=== PATIENT | male | born 1935 | race African-American/Black ===

== ENCOUNTER 2016-10-15 09:11 | Inpatient (IN) | payer MEDICARE, OTHER ==
[2016-10-14 19:00] VITALS: BP 167/91; PULSE 80; RESP 20; TEMP 98.6; O2SAT 99
[2016-10-15] VITALS (11 sets, daily range): BP systolic 149–217; BP diastolic 71–93; PULSE 60–88; RESP 18–28; TEMP 98.3–98.8; O2SAT 91–99
[~2016-10-15] VITALS: Ht 175.3 cm; Wt 62.0 kg
[~2016-10-15 09:11] MED LIST: ADVA250A INH; ALBU2.5I INH; ASPI81 PO; AUGM875T PO; CLOP75 PO; GABA300C3 PO; HYDR-2768 PO; IPRAAER INH; MONT10TA2 PO; NEBI5 PO; NITR0.4S SL; NORV10TA PO; PROT40TA PO; TAMS0.4C67 PO
--- NOTE | 2016-10-15 09:39 | PD ---
HPI Chief Complaint: Edema Time Seen by Provider: 09:36 Travel History International Travel<30 days: No Contact w/Intl Traveler<30days: No Traveled to known affect area: No History of Present Illness HPI 81-year-old male with history of COPD, hypertension, presents to the ER today with several months history of bilateral leg swelling that has been getting worse, he states that the right one developed a blister. He has been having ongoing problems and shortness of breath which has been worse lately, he has been using his inhaler with some success. He has been having some coughing but denies any fevers or any other issues. Modifying Factors: None Associated Signs & Symptoms: Bilateral leg swelling, shortness of breath Risk Factors: None PFSH Past Medical History Hx Anticoagulant Therapy: Yes (ASA) Arthritis: Yes Asthma: Yes Cancer: Yes (PROSTATE) Cardiovascular Problems: Yes ((mILD HEART ATTACK PER PT)) Chest Pain: No COPD: Yes Coronary Artery Disease: Yes Diabetes: No Diminished Hearing: No Endocrine: No Gastrointestinal Disorders: No Glaucoma: No Genitourinary: Yes (prostate ca) Hepatitis: No Hiatal Hernia: No Hypertension: Yes Immune Disorder: No Musculoskeletal: Yes Psychiatric: No Reproductive: No Respiratory: Yes (EMPHYSEMA; o2 prn) Integumentary: No Immunizations Current: Yes Radiation Therapy: Yes Sleep Apnea: No Thyroid Disease: No Past Surgical History Thoracic Surgery: No Other Surgery: Yes (BACK) Social History Alcohol Use: No Tobacco Use: No (FORMER) Substance Use: No Allergies-Medications (Allergen,Severity, Reaction): Coded Allergies: No Known Allergies (Verified , 10/15/16) Reported Meds & Prescriptions Reported Meds & Active Scripts Active Reported Proair Hfa 8.5 GM Inh (Albuterol Sulfate) 90 Mcg/Act Aer 2 Puff INH QID PRN 108 mcg/actuation Hydrochlorothiazide 25 Mg Tab 25 Mg PO DAILY Norvasc (Amlodipine Besylate) 10 Mg Tab 10 Mg PO DAILY Singulair (Montelukast Sodium) 10 Mg Tab 10 Mg PO HS Albuterol Neb (Albuterol Sulfate) 2.5 Mg/3 Ml Neb 2.5 Mg NEB Q4HR NEB PRN While awake Gabapentin 300 Mg Cap 300 Mg PO TID Plavix (Clopidogrel Bisulfate) 75 Mg Tab 75 Mg PO DAILY Advair Diskus Inh (Fluticasone-Salmeterol Inh) 250-50 Mcg/Blist Aer 1 Puff INH BID Rinse mouth after use. Nitrostat SL (Nitroglycerin) 0.4 Mg Subl 0.4 Mg SL DIRECTED PRN 1 tablet under the tongue as needed for chest pain. Repeat every 5 minutes for a total of 3 DOSES or call 911 if NO relief. Bystolic (Nebivolol) 5 Mg Tab 5 Mg PO DAILY Aspir-81 (Aspirin) 81 Mg Tabdr 81 Mg PO HS Combivent Respimat Inh (Ipratropium-Albuterol Inh) 20-100 Assisted/Act Aero 1 Puff INH BID PRN Prednisone 20 Mg Tab 20 Mg PO DAILY Tamsulosin (Tamsulosin HCl) 0.4 Mg Cap 0.4 Mg PO BID Pantoprazole (Pantoprazole Sodium) 40 Mg Tab 40 Mg PO DAILY Review of Systems Except as stated in HPI: all other systems reviewed are Neg Physical Exam Narrative GENERAL: Well-developed elderly -[place] male patient currently in mild respiratory distress. Awake appointed 3. SKIN: Focused skin assessment warm/dry. HEAD: Atraumatic. Normocephalic. EYES: Pupils equal and round. No scleral icterus. No injection or drainage. ENT: No nasal bleeding or discharge. Mucous membranes pink and moist. NECK: Trachea midline. No JVD. CARDIOVASCULAR: Regular rate and rhythm. No murmur appreciated. RESPIRATORY: Notable accessory muscle use. Coarse at the bases. Breath sounds equal bilaterally. GASTROINTESTINAL: Abdomen soft, non-tender, nondistended. Hepatic and splenic margins not palpable. MUSCULOSKELETAL: No obvious deformities. No clubbing. No cyanosis. +3 hitting edema of the lower extremity bilaterally. There is a 2 cm right foot dorsal fluid filled bulla which is nontender to palpation with no surrounding erythema. NEUROLOGICAL: Awake and alert. No obvious cranial nerve deficits. Motor grossly within normal limits. Normal speech. PSYCHIATRIC: Appropriate mood and affect; insight and judgment normal. Data Data Last Documented VS Vital Signs Date Time Temp Pulse Resp B/P Pulse Ox O2 Delivery O2 Flow Rate FiO2 10/15/16 11:22 73 26 208/82 Nasal Cannula 2.0 10/15/16 09:44 95 10/15/16 09:14 98.3 Orders Complete Blood Count With Diff (10/15/16 09:36) Comprehensive Metabolic Panel (10/15/16 09:36) B-Type Natriuretic Peptide (10/15/16 09:36) Act Partial Throm Time (Ptt) (10/15/16 09:36) Prothrombin Time / Inr (Pt) (10/15/16 09:36) Troponin I (10/15/16 09:36) Iv Access Insert/Monitor (10/15/16 09:36) Electrocardiogram (10/15/16 09:36) Ecg Monitoring (10/15/16 09:36) Oximetry (10/15/16 09:36) Oxygen Administration (10/15/16 09:36) Chest, Single Ap (10/15/16 09:36) Sodium Chloride 0.9% Flush (Ns Flush) (10/15/16 09:45) Us Leg Venous Doppler Bilat (10/15/16 09:36) Methylprednisolone So Succ Inj (Solumedr (10/15/16 10:15) Albuterol-Ipratropium Neb (Duoneb Neb) (10/15/16 10:15) Amlodipine (Norvasc) (10/15/16 11:15) Furosemide Inj (Lasix Inj) (10/15/16 12:00) Admit Order (Ed Use Only) (10/15/16 12:07) Labs Laboratory Tests Test 10/15/16 09:54 White Blood Count 8.7 TH/MM3 Red Blood Count 5.61 MIL/MM3 Hemoglobin 13.7 GM/DL Hematocrit 42.2 % Mean Corpuscular Volume 75.2 FL Mean Corpuscular Hemoglobin 24.4 PG Mean Corpuscular Hemoglobin 32.5 % Concent Red Cell Distribution Width 18.8 % Platelet Count 154 TH/MM3 Mean Platelet Volume 7.2 FL Neutrophils (%) (Auto) 74.2 % Lymphocytes (%) (Auto) 12.3 % Monocytes (%) (Auto) 6.4 % Eosinophils (%) (Auto) 6.2 % Basophils (%) (Auto) 0.9 % Neutrophils # (Auto) 6.4 TH/MM3 Lymphocytes # (Auto) 1.1 TH/MM3 Monocytes # (Auto) 0.6 TH/MM3 Eosinophils # (Auto) 0.5 TH/MM3 Basophils # (Auto) 0.1 TH/MM3 CBC Comment DIFF FINAL Differential Comment Prothrombin Time 10.6 SEC Prothromb Time International 1.0 RATIO Ratio Activated Partial 27.8 SEC Thromboplast Time Sodium Level 140 MEQ/L Potassium Level 4.4 MEQ/L Chloride Level 106 MEQ/L Carbon Dioxide Level 27.7 MEQ/L Anion Gap 6 MEQ/L Blood Urea Nitrogen 13 MG/DL Creatinine 1.14 MG/DL Estimat Glomerular Filtration 75 ML/MIN Rate Random Glucose 87 MG/DL Calcium Level 8.8 MG/DL Total Bilirubin 0.5 MG/DL Aspartate Amino Transf 41 U/L (AST/SGOT) Alanine Aminotransferase 30 U/L (ALT/SGPT) Alkaline Phosphatase 49 U/L Troponin I 0.02 NG/ML B-Type Natriuretic Peptide 54 PG/ML Total Protein 6.9 GM/DL Albumin 3.6 GM/DL [facility] Medical Decision Making Medical Screen Exam Complete: Yes Emergency Medical Condition: Yes Medical Record Reviewed: Yes Interpretation(s) EKG shows normal sinus rhythm at a rate of 60 bpm with signs of LVH. Laboratory Tests Test 10/15/16 09:54 Mean Corpuscular Volume 75.2 FL (80.0-100.0) Mean Corpuscular Hemoglobin 24.4 PG (27.0-34.0) Red Cell Distribution Width 18.8 % (11.6-17.2) Neutrophils (%) (Auto) 74.2 % (16.0-70.0) Eosinophils (%) (Auto) 6.2 % (0.0-4.0) Eosinophils # (Auto) 0.5 TH/MM3 (0-0.4) Estimat Glomerular Filtration 75 ML/MIN (>89) Rate Aspartate Amino Transf 41 U/L (15-37) (AST/SGOT) Last 24 hours Impressions Lower Extremity Ultrasound 10/15/16935 Signed Impressions: Service Date/Time: Saturday, October 15, 2016 10:08 - CONCLUSION: Normal examination. Carlos Lehman Jr., MD Chest X-Ray 10/15/16935 Signed Impressions: Service Date/Time: Saturday, October 15, 2016 09:39 - CONCLUSION: Bullous emphysematous changes. Prior granulomatous disease. Carlos Lehman Jr., MD Differential Diagnosis Leg swelling, right foot blister, shortness of breathCHF versus DVT/PE versus cellulitis versus COPD exacerbation versus pneumonia Narrative Course EKG shows signs of LVH and blood pressure is fairly elevated. Patient was initially given his usual Norvasc without significant improvement. Ultrasound of legs shows no signs of DVT. At this point, lab work returns did not show any signs of troponin elevation. My plan would be to admit the patient for blood pressure control. In addition, chest x-ray shows COPD without pneumonia. He was given Solu-Medrol and DuoNeb's in the ER with mild improvements and saturations. Considering how poorly he is doing at home, further treatment will be needed. Case was discussed with Dr. Arceo for admission for further treatment. Diagnosis Primary Impression: Hypertensive urgency Additional Impression: COPD exacerbation Admitting Information Admitting Physician Requests: Admit Nithya Alonso MD Oct 15, 2016 09:39
[2016-10-15] MEDS ORDERED: SODIUM CHLORIDE 0.9% FLUSH 10 ML FLUSH IVF PRN (09:45)
--- NOTE | 2016-10-15 09:59 | RADRPT ---
EXAM DATE/TIME: 10/15/2016 09:39 [facility] COMPARISON: CT PULMONARY ANGIOGRAM, May 05, 2014, 4:02. CHEST SINGLE AP, May 06, 2014, 6:48. INDICATIONS : Short of breath. MEDICAL HISTORY : Hypertension. Chronic obstructive pulmonary disease. SURGICAL HISTORY : None. ENCOUNTER: Subsequent ACUITY: 2 days PAIN SCORE: 0/10 LOCATION: Bilateral chest FINDINGS: A single portable frontal view of the chest shows bullous emphysematous changes. Calcified granulomas are noted on the left. No infiltrate or effusion. Heart is normal in size. Scoliotic curvature is mi ld. CONCLUSION: Bullous emphysematous changes. Prior granulomatous disease. Carlos Lehman Jr., MD on October 15, 2016 at 9:56 Board Certified Radiologist. This report was verified electronically.
[2016-10-15] MEDS ORDERED: ASPI81TA81 PO (10:02)
[2016-10-15] MEDS ORDERED: PLAV75TA29 PO (10:02)
[2016-10-15] MEDS ORDERED: ADVA250A INH (10:02)
[2016-10-15] MEDS ORDERED: NITR0.4S SL (10:02)
[2016-10-15] MEDS ORDERED: BYST5TAB2 PO (10:02)
[2016-10-15] MEDS ORDERED: TAMS0.4C4 PO (10:02)
[2016-10-15] MEDS ORDERED: PRED20 PO (10:02)
[2016-10-15] MEDS ORDERED: PANT40TA3 PO (10:02)
[2016-10-15] MEDS ORDERED: GABA300C5 PO (10:02)
[2016-10-15] MEDS ORDERED: IPRAAER INH (10:02)
[2016-10-15] MEDS ORDERED: MONT10TA2 PO (10:04)
[2016-10-15] MEDS ORDERED: AMLO10 PO (10:04)
[2016-10-15] MEDS ORDERED: ALBU0.08 NEB (10:04)
[2016-10-15] MEDS ORDERED: HYDR25TA5 PO (10:05)
[2016-10-15] MEDS ORDERED: ALBUAER3 INH (10:06)
[2016-10-15 10:09] LABS: AUTOMATED NEUTROPHIL # 6.4 TH/MM3 (1.8-7.7); BASOPHIL # 0.1 TH/MM3 (0-0.2); BASOPHIL % 0.9 % (0.0-2.0); EOSINOPHIL # 0.5 TH/MM3 (0-0.4); EOSINOPHIL % 6.2 % (0.0-4.0); HEMATOCRIT 42.2 % (39.0-51.0); HEMO FLAGS DIFF FINAL; LYMPH % 12.3 % (9.0-44.0); LYMPHOCYTE # 1.1 TH/MM3 (1.0-4.8); MEAN CELL VOLUME 75.2 FL (80.0-100.0); MEAN CORPUSCULAR HEMOGLOBIN 24.4 PG (27.0-34.0); MEAN CORPUSCULAR HGB CONC 32.5 % (32.0-36.0); MONO % 6.4 % (0.0-8.0); NEUT % 74.2 % (16.0-70.0); PLATELET COUNT 154 TH/MM3 (150-450); RED BLOOD COUNT 5.61 MIL/MM3 (4.50-5.90); RED CELL DISTRIBUTION WIDTH 18.8 % (11.6-17.2); WHITE BLOOD COUNT 8.7 TH/MM3 (4.0-11.0)
[2016-10-15] MEDS ORDERED: methylPREDNISolone SOD SUCC 125 MG/2 ML VIAL IV PUSH ONE (10:15)
[2016-10-15 10:22] LABS: APTT (PATIENT) 27.8 SEC (24.3-30.1); PROTHROMBIN TIME - PATIENT 10.6 SEC (9.8-11.6)
[2016-10-15 10:31] LABS: ALT (GPT) 30 U/L (12-78)
[2016-10-15 10:35] LABS: ALKALINE PHOSPHATASE 49 U/L (45-117); TOTAL BILIRUBIN ADULT 0.5 MG/DL (0.2-1.0)
[2016-10-15 10:58] LABS: ANION GAP 6 MEQ/L (5-15); AST (GOT) 41 U/L (15-37); BICARBONATE 27.7 MEQ/L (21.0-32.0); BLOOD UREA NITROGEN 13 MG/DL (7-18); CHLORIDE 106 MEQ/L (98-107); GLOMERULAR FILTRATION RATE 75 ML/MIN (>89); POTASSIUM 4.4 MEQ/L (3.5-5.1); SODIUM (NA) 140 MEQ/L (136-145)
--- NOTE | 2016-10-15 11:14 | RADRPT ---
EXAM DATE/TIME: 10/15/2016 10:08 [facility] COMPARISON: No previous studies available for comparison. INDICATIONS : Bilateral leg swelling. MEDICAL HISTORY : Myocardial infarction. Chronic obstructive pulmonary disease. Hypertension. CAD. Prostate cancer. Art hritis. SURGICAL HISTORY : Lumbar herniated discs removed. ENCOUNTER: Initial ACUITY: 1 day PAIN SCORE: 4/10 LOCATION: Bilateral legs. TECHNIQUE: Venous ultrasound of the left and right leg was performed from the inguinal ligament to the proximal calf. Real-time, color Doppler and spectral tracing, compression and augmentation techniques were us ed. FINDINGS: RIGHT LEG: There is normal compressibility of the deep venous system from the inguinal region to the proximal ca lf. No echogenic clot is seen in the lumen of the common femoral, femoral, popliteal, and posterior tibial veins. There is a normal response of the venous system to proximal and distal augmentation an d respiration. LEFT LEG: There is normal compressibility of the deep venous system from the inguinal region to the proximal ca lf. No echogenic clot is seen in the lumen of the common femoral, femoral, popliteal, and posterior tibial veins. There is a normal response of the venous system to proximal and distal augmentation an d respiration. CONCLUSION: Normal examination. Carlos Lehman Jr., MD on October 15, 2016 at 11:10 Board Certified Radiologist. This report was verified electronically.
[2016-10-15] MEDS: RESP: ALBUTEROL 2.5 MG/IPRATROPIUM 0.5 MG NEB (SCH) INH (11:34)
[2016-10-15] MEDS ORDERED: FUROSEMIDE 40 MG/4 ML VIAL IV PUSH ONE (12:00)
[2016-10-15] MEDS ORDERED: niCARdipine INJ 25 MG in SODIUM CHLOR 0.9% 250 ML INJ 250 ML IV SCH (12:15)
[2016-10-15] MEDS ORDERED: SODIUM CHLORIDE 0.9% FLUSH 10 ML FLUSH IV FLUSH PRN (12:30)
[2016-10-15] MEDS ORDERED: NALOXONE HCL 0.4 MG/ML AMP IV PRN (12:30)
[2016-10-15] MEDS ORDERED: ACETAMINOPHEN 325 MG TAB PO PRN ×2 (12:30)
[2016-10-15 12:38] LABS: BLOOD GAS BASE EXCESS 4.7 mmol/L (-2-2); BLOOD GAS CARBOXYHEMOGLOBIN 1.4 % (0-4); BLOOD GAS HCO3 29 mmol/L (22-26); BLOOD GAS METHEMOGLOBIN 0.6 % (0-2); BLOOD GAS O2 HGB SATURATION 94 % (90-100); BLOOD GAS OXYGEN CONTENT 17.3 Vol % (12.0-20.0); BLOOD GAS PCO2 48 mmHg (38-42); BLOOD GAS PO2 80 mmHG (61-120); BLOOD GAS TOTAL HGB 13.1 G/DL (12.0-16.0); CRITICAL VALUE NO; DRAW SITE RT RADIAL; LITER FLOW 1 L/M; NUMBER OF ARTERIAL PUNCTURES 1; OXYGEN DEVICE NASAL CANNULA; STAT YES; TEMP CORR TO 98.6
[2016-10-15] MEDS ORDERED: ONDANSETRON HCL 4 MG/2 ML VIAL IVP PRN (13:00)
[2016-10-15] MEDS ORDERED: SENNOSIDES 8.6 MG TAB PO PRN (13:00)
--- NOTE | 2016-10-15 15:36 | HHI.HP ---
HPI Service [facility] Hospitalists Primary Care Physician Gavin Lamar MD Admission Diagnosis hypertensive urgency/leg edema/COPD exacerbation Diagnoses: (1) Hypertensive urgency (2) COPD exacerbation (3) Edema of lower extremity Chief Complaint: SOB Bilateral lower extremity swelling Travel History International Travel<30 Days: No Contact w/Intl Traveler <30 Da: No Traveled to Known Affected Are: No History of Present Illness Written by Le Friend PA-C acting as scribe for Dr. Arceo on 10/15/16 at 15:36. This is an 81 year old male with a PMHX significant for COPD with nightly use of oxygen, CAD status post previous HI, hypertension and history of prostate cancer presents to [facility] ED with complaints of one month history of bilateral lower extremity swelling. Patient is not a good historian and it is difficult to ascertain what medications he's been taking home and if he has been taking them as prescribed. According to his daughter who is at the bedside, he may have been out of some of his medications. Patient endorses over the last several days he's had increased shortness of breath and cough with whitish sputum production. He is having more difficulty walking the stairs to get up to his second floor apartment. He was unable to walk his dogs this morning secondary to shortness of breath. He denies any recent illness. He denies any fever or chills. He denies any complaints of chest pain or palpitations. Denies any nausea, vomiting, abdominal pain, diarrhea or constipation. In the ED, Doppler's were obtained of both lower extremities and were negative for DVT. Chest x-ray was obtained revealing bullous emphysematous changes and prior granulomatous disease. Patient's blood pressure was significantly elevated in the ED 208/82. Patient states he's been taking his blood pressure medication daily except for this morning which he did not take as he was coming into the hospital. Patient was given Norvasc 10 mg in the ED. Blood pressure improved to 157/72. Review of Systems Except as stated in HPI: all other systems reviewed are Neg Past Family Social History Past Medical History Hypertension COPD CAD status post previous HI Prostate cancer Degenerative disc disease lumbar spine H/O TB Past Surgical History Lumbar spine surgery 20-30 years ago Reported Medications Proair Hfa 8.5 GM Inh (Albuterol Sulfate) 90 Mcg/Act Aer 2 Puff INH QID PRN 108 mcg/actuation Hydrochlorothiazide 25 Mg Tab 25 Mg PO DAILY Norvasc (Amlodipine Besylate) 10 Mg Tab 10 Mg PO DAILY Singulair (Montelukast Sodium) 10 Mg Tab 10 Mg PO HS Albuterol Neb (Albuterol Sulfate) 2.5 Mg/3 Ml Neb 2.5 Mg NEB Q4HR NEB PRN While awake Gabapentin 300 Mg Cap 300 Mg PO TID Plavix (Clopidogrel Bisulfate) 75 Mg Tab 75 Mg PO DAILY Advair Diskus Inh (Fluticasone-Salmeterol Inh) 250-50 Mcg/Blist Aer 1 Puff INH BID Rinse mouth after use. Nitrostat SL (Nitroglycerin) 0.4 Mg Subl 0.4 Mg SL DIRECTED PRN 1 tablet under the tongue as needed for chest pain. Repeat every 5 minutes for a total of 3 DOSES or call 911 if NO relief. Bystolic (Nebivolol) 5 Mg Tab 5 Mg PO DAILY Aspir-81 (Aspirin) 81 Mg Tabdr 81 Mg PO HS Combivent Respimat Inh (Ipratropium-Albuterol Inh) 20-100 Prison/Act Aero 1 Puff INH BID PRN Prednisone 20 Mg Tab 20 Mg PO DAILY Tamsulosin (Tamsulosin HCl) 0.4 Mg Cap 0.4 Mg PO BID Pantoprazole (Pantoprazole Sodium) 40 Mg Tab 40 Mg PO DAILY Allergies: Coded Allergies: No Known Allergies (Verified , 10/15/16) Active Ordered Medications Current Medications Medications (Trade) Dose Ordered Sig/Veda Route Start Time Stop Time Status Last Admin Sodium Chloride 2 ml 2 ml UNSCH PRN IVF 10/15/16 09:45 10/15/16 11:18 (Cardene Inj/NS 250 ml Inj) 260 ml @ 0 mls/hr TITRATE IV 10/15/16 12:15 (NS Flush) 2 ml UNSCH PRN IV FLUSH 10/15/16 12:30 (NS Flush) 2 ml BID IV FLUSH 10/15/16 21:00 (Tylenol) 650 mg Q4H PRN PO 10/15/16 12:30 (Zofran Inj) 4 mg Q6H PRN IVP 10/15/16 13:00 (Tylenol) 650 mg Q6H PRN PO 10/15/16 12:30 (Narcan Inj) 0.4 mg UNSCH PRN IV 10/15/16 12:30 (Senokot) 17.2 mg Q12HR PRN PO 10/15/16 13:00 Family History Father, cancer Social History Patient reports history of previous tobacco use having quit approximately 8 years ago. Preior to quitting, he smoked about a half pack per day for 30-40 years. She denies any alcohol consumption or illicit drug use. Patient lives alone in an upstairs apartment. Physical Exam Vital Signs Vital Signs Date Time Temp Pulse Resp B/P Pulse Ox O2 Delivery O2 Flow Rate FiO2 10/15/16 14:48 79 22 157/72 99 Nasal Cannula 3.0 10/15/16 11:22 73 26 208/82 Nasal Cannula 2.0 10/15/16 09:44 60 28 198/92 95 Room Air 10/15/16 09:43 95 Room Air 10/15/16 09:43 Nasal Cannula 2.0 10/15/16 09:37 30 94 Room Air 10/15/16 09:14 98.3 72 28 217/93 91 Room Air Physical Exam GENERAL: This is a well-nourished, well-developed patient, in mild to moderate respiratory distress noted to be short of breath with speaking. Awake and alert. Daughter is at the bedside. SKIN: No rashes, ecchymoses or lesions. Cool and dry. HEAD: Atraumatic. Normocephalic. No temporal or scalp tenderness. EYES: Pupils equal round and reactive. Extraocular motions intact. No scleral icterus. No injection or drainage. ENT: Nose without bleeding, purulent drainage or septal hematoma. Throat without erythema, tonsillar hypertrophy or exudate. Uvula midline. Airway patent. NECK: Trachea midline. No lymphadenopathy. Supple, nontender, no meningeal signs. CARDIOVASCULAR: Regular rate and rhythm without murmurs, gallops, or rubs. RESPIRATORY: Tight air entry. Coarse breath sounds throughout. Expiratory wheezing noted. GASTROINTESTINAL: Abdomen soft, non-tender, nondistended. No hepato-splenomegaly , or palpable masses. No guarding. MUSCULOSKELETAL: 2+ bilateral lower extremity edema with bullous formation top of the right foot. NEUROLOGICAL: Awake and alert. Able to move all extremities. Normal speech. Laboratory Laboratory Tests Test 10/15/16 10/15/16 09:54 12:28 White Blood Count 8.7 Red Blood Count 5.61 Hemoglobin 13.7 Hematocrit 42.2 Mean Corpuscular Volume 75.2 Mean Corpuscular Hemoglobin 24.4 Mean Corpuscular Hemoglobin 32.5 Concent Red Cell Distribution Width 18.8 Platelet Count 154 Mean Platelet Volume 7.2 Neutrophils (%) (Auto) 74.2 Lymphocytes (%) (Auto) 12.3 Monocytes (%) (Auto) 6.4 Eosinophils (%) (Auto) 6.2 Basophils (%) (Auto) 0.9 Neutrophils # (Auto) 6.4 Lymphocytes # (Auto) 1.1 Monocytes # (Auto) 0.6 Eosinophils # (Auto) 0.5 Basophils # (Auto) 0.1 CBC Comment DIFF FINAL Differential Comment Prothrombin Time 10.6 Prothromb Time International 1.0 Ratio Activated Partial 27.8 Thromboplast Time Sodium Level 140 Potassium Level 4.4 Chloride Level 106 Carbon Dioxide Level 27.7 Anion Gap 6 Blood Urea Nitrogen 13 Creatinine 1.14 Estimat Glomerular Filtration 75 Rate Random Glucose 87 Calcium Level 8.8 Total Bilirubin 0.5 Aspartate Amino Transf 41 (AST/SGOT) Alanine Aminotransferase 30 (ALT/SGPT) Alkaline Phosphatase 49 Troponin I 0.02 B-Type Natriuretic Peptide 54 Total Protein 6.9 Albumin 3.6 Thyroid Stimulating Hormone 1.300 3rd Gen Blood Gas Puncture Site RT RADIAL Blood Gas Patient Temperature 98.6 Blood Gas HCO3 29 Blood Gas Base Excess 4.7 Blood Gas Oxygen Saturation 94 Arterial Blood pH 7.40 Arterial Blood Partial 48 Pressure CO2 Arterial Blood Partial 80 Pressure O2 Arterial Blood Oxygen Content 17.3 Arterial Blood 1.4 Carboxyhemoglobin Arterial Blood Methemoglobin 0.6 Blood Gas Hemoglobin 13.1 Oxygen Delivery Device NASAL CANNULA Blood Gas Liter Flow 1 Result Diagram: 10/15/1695310/15/16953 Imaging Last Impressions Lower Extremity Ultrasound 10/15/16935 Signed Impressions: Service Date/Time: Saturday, October 15, 2016 10:08 - CONCLUSION: Normal examination. Carlos Lehman Jr., MD Chest X-Ray 10/15/16935 Signed Impressions: Service Date/Time: Saturday, October 15, 2016 09:39 - CONCLUSION: Bullous emphysematous changes. Prior granulomatous disease. Carlos Lehman Jr., MD Assessment and Plan Problem List: (1) Hypertensive urgency ICD Code: I10 Status: Acute (2) Edema of lower extremity ICD Code: R60.0 Status: Acute (3) COPD exacerbation ICD Code: J44.1 Status: Acute Assessment and Plan 81 year old male with a PMHX significant for COPD with nightly use of oxygen, CAD status post previous HI, hypertension and history of prostate cancer presents to [facility] ED with complaints of one month history of bilateral lower extremity swelling and progressive dyspnea over the past several days with cough and whitish sputum production. Hypertensive urgency -Cardene drip order routine - improved - Patient given Norvasc 10mg in ED - suspect medication noncompliance - Will resume patient's home antihypertensives except for Norvasc which will be held secondary to possibly contributing to lower extremity edema and HCTZ as we will be giving the patient Lasix - Clonidine 0.1mg prn -Check 2-D echo COPD exacerbation - ABG reviewed - Prednisone 10mg po BID - Duonebs scheduled q6h while awake with prn albuterol q2h - Resume home bronchodilator therapy - Resume home dose of Singulair - Supplemental oxygen as needed - sputum cx ordered - PT eval/tx BLE edema - Does not appear to be a CHF exacerbation. Chest x-ray negative for fluid overload. BNP 54. - Last echocardiogram noted in the system was dated 2014 with EF of 65% - Patient given IV Lasix in the ED - Will continue IV Lasix 20mg daily - monitor I&Os - monitor electrolytes -Check 2-D echo CAD s/p previous HI - Resume beta lino therapy - ASA daily - Resume home Plavix dose CAP BPH - Resume home dose of Flomax DVT prophylaxis - Patient's home Plavix dose is resumed - SCD/MEG hose bilaterally Code Status Full code Discussed Condition With patient, daughter and ED physician Physician Certification 2 Midnight Certification Type: Admission for Inpatient Services Order for Inpatient Services The services are ordered in accordance with Medicare regulations or non- Medicare payer requirements, as applicable. In the case of services not specified as inpatient-only, they are appropriately provided as inpatient services in accordance with the 2-midnight benchmark. Estimated LOS (days): 3 3 days is the estimated time the patient will need to remain in the hospital, assuming treatment plan goals are met and no additional complications. Post-Hospital Plan: Not yet determined Le Friend Oct 15, 2016 15:36 Trung Arceo MD Oct 15, 2016 15:37
[2016-10-15] MEDS ORDERED: cloNIDine HCL 0.1 MG TAB PO PRN (16:30)
[2016-10-15] MEDS ORDERED: CLOPIDOGREL 75 MG TAB PO ONE (16:30)
[2016-10-15] MEDS ORDERED: NON-FORMULARY DRUG (Ipratropium-Albuterol Inh (Combivent Respimat Inh) 1 PUFF) INH PRN (16:30)
[2016-10-15] MEDS: NEBIVOLOL 5 MG TAB PO SCH (16:30)
[2016-10-15] MEDS ORDERED: NITROGLYCERIN 0.4 MG SL 25 TABS/BTL SL PRN (16:30)
[2016-10-15] MEDS ORDERED: RESP: ALBUTEROL 2.5 MG/3 ML NEB (PRN) NEB (16:30)
[2016-10-15] MEDS ORDERED: ALBUTEROL SULFATE 90 MCG/ACT HFA 18 GM INHALER INH PRN (17:00)
[2016-10-15] MEDS: GABAPENTIN 300 MG CAP PO SCH (17:45)
[2016-10-15] MEDS: RESP: ALBUTEROL 2.5 MG/IPRATROPIUM 0.5 MG NEB (SCH) NEB (20:10)
[2016-10-15] MEDS: BUDESONIDE-FORMOTEROL 160/4.5 MCG INHALER INH SCH (21:00)
[2016-10-15] MEDS ORDERED: NON-FORMULARY DRUG (Fluticasone-Salmeterol Inh (Advair Diskus Inh) 1 PUFF) INH SCH (21:00)
[2016-10-15] MEDS: predniSONE 10 MG TAB PO SCH (21:14)
[2016-10-15] MEDS: SODIUM CHLORIDE 0.9% FLUSH 10 ML FLUSH IV FLUSH SCH (21:15)
[2016-10-15] MEDS: TAMSULOSIN HCL 0.4 MG CAP PO SCH (21:15)
[2016-10-15] MEDS: MONTELUKAST SODIUM 10 MG TAB PO SCH (21:15)
[2016-10-15] MEDS: ASPIRIN EC 81 MG TABEC PO SCH (21:15)
[2016-10-16] VITALS (24 sets, daily range): BP systolic 126–164; BP diastolic 52–99; PULSE 59–84; RESP 18–22; TEMP 98–98.6; O2SAT 95–100
[2016-10-16 06:55] LABS: AUTOMATED NEUTROPHIL # 14.4 TH/MM3 (1.8-7.7); BASOPHIL % 0.2 % (0.0-2.0); HEMATOCRIT 41.7 % (39.0-51.0); HEMO FLAGS DIFF FINAL; LYMPH % 3.3 % (9.0-44.0); LYMPHOCYTE # 0.5 TH/MM3 (1.0-4.8); MEAN CORPUSCULAR HEMOGLOBIN 23.9 PG (27.0-34.0); MEAN CORPUSCULAR HGB CONC 31.9 % (32.0-36.0); MONO % 2.6 % (0.0-8.0); NEUT % 93.9 % (16.0-70.0); PLATELET COUNT 149 TH/MM3 (150-450); RED BLOOD COUNT 5.56 MIL/MM3 (4.50-5.90); RED CELL DISTRIBUTION WIDTH 18.6 % (11.6-17.2); WHITE BLOOD COUNT 15.3 TH/MM3 (4.0-11.0)
[2016-10-16 07:28] LABS: ALT (GPT) 24 U/L (12-78); ANION GAP 9 MEQ/L (5-15); AST (GOT) 18 U/L (15-37); BICARBONATE 27.8 MEQ/L (21.0-32.0); BLOOD UREA NITROGEN 18 MG/DL (7-18); CHLORIDE 104 MEQ/L (98-107); GLOMERULAR FILTRATION RATE 83 ML/MIN (>89); SODIUM (NA) 141 MEQ/L (136-145)
[2016-10-16 07:30] LABS: ALKALINE PHOSPHATASE 48 U/L (45-117); HDL CHOLESTEROL 79.8 MG/DL (40.0-60.0); LDL CHOLESTEROL 77 MG/DL (0-99); TOTAL BILIRUBIN ADULT 0.5 MG/DL (0.2-1.0)
[2016-10-16] MEDS: RESP: ALBUTEROL 2.5 MG/IPRATROPIUM 0.5 MG NEB (SCH) NEB ×3 (07:32→19:27)
[2016-10-16] MEDS: predniSONE 10 MG TAB PO SCH ×2 (08:34→20:51)
[2016-10-16] MEDS: GABAPENTIN 300 MG CAP PO SCH ×3 (08:34→17:41)
[2016-10-16] MEDS: NEBIVOLOL 5 MG TAB PO SCH (08:34)
[2016-10-16] MEDS: CLOPIDOGREL 75 MG TAB PO SCH (08:34)
[2016-10-16] MEDS: SODIUM CHLORIDE 0.9% FLUSH 10 ML FLUSH IV FLUSH SCH ×2 (08:35→20:51)
[2016-10-16] MEDS: FUROSEMIDE 20 MG/2 ML VIAL IV PUSH SCH (08:35)
[2016-10-16] MEDS: TAMSULOSIN HCL 0.4 MG CAP PO SCH ×2 (08:35→20:50)
[2016-10-16] MEDS: BUDESONIDE-FORMOTEROL 160/4.5 MCG INHALER INH SCH ×2 (08:35→20:53)
[2016-10-16] MEDS: PANTOPRAZOLE SOD 40 MG DELAYED RELEASE TAB PO SCH (08:35)
--- NOTE | 2016-10-16 11:05 | HHI.PR ---
Subjective Remarks Follow-up hypertensive emergency/bilateral lower extremity edema/COPD exacerbation 10/16/16-patient seen and examined, reports significant improvement or shortness of breath as well as bilateral lower extremity edema. BP much improved Objective Vitals Vital Signs Date Time Temp Pulse Resp B/P Pulse Ox O2 Delivery O2 Flow Rate FiO2 10/16/16 10:13 73 10/16/16 09:53 84 10/16/16 08:56 81 10/16/16 07:49 98 Nasal Cannula 2.00 10/16/16 07:49 77 10/16/16 07:49 98.2 77 18 164/99 98 10/16/16 07:34 95 Nasal Cannula 2.00 10/16/16 06:00 74 10/16/16 05:00 76 10/16/16 04:00 70 10/16/16 03:00 72 10/16/16 03:00 98.6 75 22 157/78 99 10/16/16 02:00 72 10/16/16 01:00 74 10/16/16 00:00 72 10/15/16 23:00 98.8 78 22 149/71 98 10/15/16 23:00 79 10/15/16 22:00 78 10/15/16 21:00 78 10/15/16 20:00 80 10/15/16 19:00 98.6 80 20 167/91 99 10/15/16 19:00 99 Nasal Cannula 2.00 10/15/16 19:00 99 Nasal Cannula 2.00 10/15/16 19:00 88 10/15/16 17:41 98.6 78 18 165/84 98 10/15/16 14:48 79 22 157/72 99 Nasal Cannula 3.0 10/15/16 11:22 73 26 208/82 Nasal Cannula 2.0 I/O 10/15/16 10/15/16 10/15/16 10/16/16 10/16/16 10/16/16 07:00 15:00 23:00 07:00 15:00 23:00 Intake Total 240 ml Output Total 1100 ml 500 ml 500 ml Balance -1100 ml -500 ml -260 ml Intake Oral 240 ml Output Urine Total 1100 ml 500 ml 500 ml # Voids 2 1 # Bowel Movements 1 Result Diagram: 10/16/1652010/16/16520 Imaging Last Impressions Lower Extremity Ultrasound 10/15/16935 Signed Impressions: Service Date/Time: Saturday, October 15, 2016 10:08 - CONCLUSION: Normal examination. Carlos Lehman Jr., MD Chest X-Ray 10/15/16935 Signed Impressions: Service Date/Time: Saturday, October 15, 2016 09:39 - CONCLUSION: Bullous emphysematous changes. Prior granulomatous disease. Carlos Lehmna Jr., MD Objective Remarks GENERAL: NAD SKIN: Warm and dry. HEAD: Normocephalic. EYES: No scleral icterus. No injection or drainage. NECK: Supple, trachea midline. No JVD or lymphadenopathy. CARDIOVASCULAR: Regular rate and rhythm without murmurs, gallops, or rubs. RESPIRATORY: Breath sounds equal bilaterally. No accessory muscle use. GASTROINTESTINAL: Abdomen soft, non-tender, nondistended. MUSCULOSKELETAL: No cyanosis, +trace edema BLE. BACK: Nontender without obvious deformity. No CVA tenderness. A/P Problem List: (1) Hypertensive urgency ICD Code: I10 Status: Acute (2) Edema of lower extremity ICD Code: R60.0 Status: Acute (3) COPD exacerbation ICD Code: J44.1 Status: Acute Assessment and Plan 81 year-old man with Hypertensive urgency -Cardene drip order will be discontinued - improved - suspect medication noncompliance - Continue patient's home antihypertensives except for Norvasc which will be held secondary to possibly contributing to lower extremity edema and HCTZ as we will be giving the patient Lasix - Clonidine 0.1mg prn -Check 2-D echo COPD exacerbation - Resolved - Prednisone 10mg po BID - Duonebs scheduled q6h while awake with prn albuterol q2h - Continue home bronchodilator therapy - Continue home dose of Singulair - Supplemental oxygen as needed - sputum cx pending - PT eval/tx BLE edema-improving - Does not appear to be a CHF exacerbation. Chest x-ray negative for fluid overload. BNP 54. - Last echocardiogram noted in the system was dated 2014 with EF of 65% - Continue IV Lasix 20mg daily - monitor I&Os - monitor electrolytes -Check 2-D echo CAD s/p previous [place] - Continue beta lino therapy as well as aspirin and Plavix CAP BPH - Continue home dose of Flomax DVT prophylaxis - SCD/Trung Villagomez MD Oct 16, 2016 11:05
[2016-10-16] MEDS: HYDROCHLOROTHIAZIDE 25 MG TAB PO SCH (11:40)
--- NOTE | 2016-10-16 14:22 | EKG ---
Date Performed: 10/15/2016 Time Performed: 09:55:55 PTAGE: 81 years EKG: Sinus rhythm LEFT VENTRICULAR HYPERTROPHY AND ST-T CHANGE ABNORMAL ECG Compared to the PREVIOUS TRACING the left ventricular strain pattern appears new Clinical correlation is needed PREVIOUS TRACIN05/04/14 DOCTOR: Gray Wheeler Interpretating Date/Time 10/16/2016 14:21:06
[2016-10-16] MEDS: MONTELUKAST SODIUM 10 MG TAB PO SCH (20:51)
[2016-10-16] MEDS: ASPIRIN EC 81 MG TABEC PO SCH (20:53)
[2016-10-17] VITALS (17 sets, daily range): BP systolic 127–165; BP diastolic 71–89; PULSE 54–91; RESP 18–20; TEMP 98–98.4; O2SAT 96–100
[2016-10-17] MEDS: RESP: ALBUTEROL 2.5 MG/IPRATROPIUM 0.5 MG NEB (SCH) NEB ×2 (08:06→14:15)
[2016-10-17] MEDS: GABAPENTIN 300 MG CAP PO SCH ×2 (08:59→13:16)
[2016-10-17] MEDS: predniSONE 10 MG TAB PO SCH (08:59)
[2016-10-17] MEDS: SODIUM CHLORIDE 0.9% FLUSH 10 ML FLUSH IV FLUSH SCH (08:59)
[2016-10-17] MEDS: CLOPIDOGREL 75 MG TAB PO SCH (08:59)
[2016-10-17] MEDS: HYDROCHLOROTHIAZIDE 25 MG TAB PO SCH (08:59)
[2016-10-17] MEDS: FUROSEMIDE 20 MG/2 ML VIAL IV PUSH SCH (09:00)
[2016-10-17] MEDS: TAMSULOSIN HCL 0.4 MG CAP PO SCH (09:00)
[2016-10-17] MEDS: NEBIVOLOL 5 MG TAB PO SCH (09:00)
[2016-10-17] MEDS: PANTOPRAZOLE SOD 40 MG DELAYED RELEASE TAB PO SCH (09:00)
[2016-10-17] MEDS: BUDESONIDE-FORMOTEROL 160/4.5 MCG INHALER INH SCH (09:00)
--- NOTE | 2016-10-17 09:22 | HHI.PR ---
Subjective Remarks Follow-up hypertensive emergency/bilateral lower extremity edema/COPD exacerbation 10/16/16-patient seen and examined, reports significant improvement or shortness of breath as well as bilateral lower extremity edema. BP much improved 10/17/16-patient seen and examined; denies any shortness of breath. Reports significant improvement of lower extremity edema Objective Vitals Vital Signs Date Time Temp Pulse Resp B/P Pulse Ox O2 Delivery O2 Flow Rate FiO2 10/17/16 08:06 100 Nasal Cannula 2.00 10/17/16 07:34 98.4 84 20 165/89 98 10/17/16 07:34 98 2.00 10/17/16 07:34 84 10/17/16 05:43 55 10/17/16 04:51 98.1 65 18 150/85 100 10/17/16 04:03 58 10/17/16 03:12 69 10/17/16 02:08 55 10/17/16 01:06 56 10/17/16 00:10 100 2.00 10/17/16 00:08 59 10/16/16 23:33 98.4 63 21 126/55 100 10/16/16 23:20 59 10/16/16 22:00 62 10/16/16 20:54 98.3 71 20 126/52 97 10/16/16 20:00 98 2.00 10/16/16 19:27 95 Nasal Cannula 2.00 10/16/16 18:16 65 10/16/16 17:21 60 10/16/16 16:33 62 10/16/16 15:35 98.3 65 20 146/57 99 10/16/16 15:35 65 10/16/16 13:11 68 10/16/16 12:11 64 10/16/16 11:23 98.0 75 20 127/56 99 10/16/16 11:23 75 10/16/16 10:13 73 10/16/16 09:53 84 I/O 10/16/16 10/16/16 10/16/16 10/17/16 10/17/16 10/17/16 07:00 15:00 23:00 07:00 15:00 23:00 Intake Total 240 ml 640 ml 250 ml Output Total 500 ml 800 ml 650 ml Balance -260 ml -160 ml -400 ml Intake Oral 240 ml 640 ml 250 ml Output Urine Total 500 ml 800 ml 650 ml # Bowel Movements 1 Result Diagram: 10/16/1652010/16/16520 Objective Remarks GENERAL: NAD SKIN: Warm and dry. HEAD: Normocephalic. EYES: No scleral icterus. No injection or drainage. NECK: Supple, trachea midline. No JVD or lymphadenopathy. CARDIOVASCULAR: Regular rate and rhythm without murmurs, gallops, or rubs. RESPIRATORY: Breath sounds equal bilaterally. No accessory muscle use. GASTROINTESTINAL: Abdomen soft, non-tender, nondistended. MUSCULOSKELETAL: No cyanosis, +trace edema BLE. Blister to right foot BACK: Nontender without obvious deformity. No CVA tenderness. Procedures None A/P Problem List: (1) Hypertensive urgency ICD Code: I10 Status: Resolved (2) Edema of lower extremity ICD Code: R60.0 Status: Acute (3) COPD exacerbation ICD Code: J44.1 Status: Acute Assessment and Plan 81 year-old man with Hypertensive urgency -Cardene drip off - improved - suspect medication noncompliance - Continue outpatient medications except Norvasc - Clonidine 0.1mg prn - 2-D echo pending COPD exacerbation - Resolved - Prednisone 10mg po BID - Duonebs scheduled q6h while awake with prn albuterol q2h - Continue home bronchodilator therapy - Continue home dose of Singulair - Supplemental oxygen as needed - sputum cx pending - PT eval/tx BLE edema-improving - Does not appear to be a CHF exacerbation. Chest x-ray negative for fluid overload. BNP 54. - Last echocardiogram noted in the system was dated 2014 with EF of 65% - Continue IV Lasix 20mg daily, however switch to by mouth - monitor I&Os - 2-D echo pending CAD s/p previous [place] - Continue beta lino therapy as well as aspirin and Plavix CAP BPH - Continue home dose of Flomax DVT prophylaxis - SCD/MEG lesleye bilaterally Trung Arceo MD Oct 17, 2016 09:21 Trung Arceo MD Oct 17, 2016 09:21
--- NOTE | 2016-10-17 09:26 | HHI.FF ---
Face to Face Verification Diagnosis: (1) Hypertensive urgency (2) Edema of lower extremity (3) COPD exacerbation Physical Therapy Order: Evaluate and Treat Home Health Nursing Order: Signs/symptoms of disease process I have seen patient Sammy Santos on 10/17/16. My clinical findings support the need for the requested home health care services because: Patient has SOB I certify that my clinical findings support that this patient is homebound because: Poor cardiac reserve Trung Arceo MD Oct 17, 2016 09:26
--- NOTE | 2016-10-17 15:36 | HHI.DS ---
Discharge Summary Admission Date Oct 15, 2016 at 12:08 Discharge Date: Oct 17, 2016 Admitting Diagnosis hypertensive urgency/leg edema/COPD exacerbation (1) Hypertensive urgency ICD Code: I16.0 (2) Edema of lower extremity ICD Code: R60.0 (3) COPD exacerbation ICD Code: J44.1 Procedures None Brief History - From Admission Written by Le Friend PA-C acting as scribe for Dr. Arceo on 10/15/16 at 15:36. This is an 81 year old male with a PMHX significant for COPD with nightly use of oxygen, CAD status post previous PR, hypertension and history of prostate cancer presents to [facility] ED with complaints of one month history of bilateral lower extremity swelling. Patient is not a good historian and it is difficult to ascertain what medications he's been taking home and if he has been taking them as prescribed. According to his daughter who is at the bedside, he may have been out of some of his medications. Patient endorses over the last several days he's had increased shortness of breath and cough with whitish sputum production. He is having more difficulty walking the stairs to get up to his second floor apartment. He was unable to walk his dogs this morning secondary to shortness of breath. He denies any recent illness. He denies any fever or chills. He denies any complaints of chest pain or palpitations. Denies any nausea, vomiting, abdominal pain, diarrhea or constipation. In the ED, Doppler's were obtained of both lower extremities and were negative for DVT. Chest x-ray was obtained revealing bullous emphysematous changes and prior granulomatous disease. Patient's blood pressure was significantly elevated in the ED 208/82. Patient states he's been taking his blood pressure medication daily except for this morning which he did not take as he was coming into the hospital. Patient was given Norvasc 10 mg in the ED. Blood pressure improved to 157/72. CBC/BMP: 10/16/16 0521 10/16/16 0521 Significant Findings Laboratory Tests Test 10/15/16 10/15/16 10/16/16 09:54 12:28 05:21 Mean Corpuscular Volume 75.2 FL 75.0 FL (80.0-100.0) (80.0-100.0) Mean Corpuscular Hemoglobin 24.4 PG 23.9 PG (27.0-34.0) (27.0-34.0) Red Cell Distribution Width 18.8 % 18.6 % (11.6-17.2) (11.6-17.2) Neutrophils (%) (Auto) 74.2 % 93.9 % (16.0-70.0) (16.0-70.0) Eosinophils (%) (Auto) 6.2 % (0.0-4.0) Eosinophils # (Auto) 0.5 TH/MM3 (0-0.4) Estimat Glomerular Filtration 75 ML/MIN (>89) 83 ML/MIN (>89) Rate Aspartate Amino Transf 41 U/L (15-37) (AST/SGOT) Blood Gas HCO3 29 mmol/L (22-26) Blood Gas Base Excess 4.7 mmol/L (-2-2) Arterial Blood Partial 48 mmHg (38-42) Pressure CO2 White Blood Count 15.3 TH/MM3 (4.0-11.0) Mean Corpuscular Hemoglobin 31.9 % Concent (32.0-36.0) Platelet Count 149 TH/MM3 (150-450) Lymphocytes (%) (Auto) 3.3 % (9.0-44.0) Neutrophils # (Auto) 14.4 TH/MM3 (1.8-7.7) Lymphocytes # (Auto) 0.5 TH/MM3 (1.0-4.8) Albumin 3.3 GM/DL (3.4-5.0) Triglycerides Level 41 MG/DL (42-150) HDL Cholesterol 79.8 MG/DL (40.0-60.0) Imaging Last Impressions Lower Extremity Ultrasound 10/15/16935 Signed Impressions: Service Date/Time: Saturday, October 15, 2016 10:08 - CONCLUSION: Normal examination. Carlos Lehman Jr., MD Chest X-Ray 10/15/16935 Signed Impressions: Service Date/Time: Saturday, October 15, 2016 09:39 - CONCLUSION: Bullous emphysematous changes. Prior granulomatous disease. Carlos Lehman Jr., MD PE at Discharge GENERAL: NAD SKIN: Warm and dry. HEAD: Normocephalic. EYES: No scleral icterus. No injection or drainage. NECK: Supple, trachea midline. No JVD or lymphadenopathy. CARDIOVASCULAR: Regular rate and rhythm without murmurs, gallops, or rubs. RESPIRATORY: Breath sounds equal bilaterally. No accessory muscle use. GASTROINTESTINAL: Abdomen soft, non-tender, nondistended. MUSCULOSKELETAL: No cyanosis, +trace edema BLE. Blister to right foot BACK: Nontender without obvious deformity. No CVA tenderness. Hospital Course Hypertensive urgency -Cardene drip off - improved - suspect medication noncompliance - Continue outpatient medications except Norvasc - Clonidine 0.1mg prn - 2-D echo pending COPD exacerbation - Resolved - Prednisone 10mg po BID - Duonebs scheduled q6h while awake with prn albuterol q2h - Continue home bronchodilator therapy - Continue home dose of Singulair - Supplemental oxygen as needed - sputum cx pending - PT eval/tx BLE edema-improving - Does not appear to be a CHF exacerbation. Chest x-ray negative for fluid overload. BNP 54. - Last echocardiogram noted in the system was dated 2014 with EF of 65% - Continue IV Lasix 20mg daily, however switch to by mouth - monitor I&Os - 2-D echo pending CAD s/p previous PR - Continue beta lino therapy as well as aspirin and Plavix CAP BPH - Continue home dose of Flomax DVT prophylaxis - SCD/MEG hose bilaterally Pt Condition on Discharge: Stable Discharge Disposition: Disch w/ Home Health Serv Discharge Time: > 30 minutes Discharge Instructions DIET: Follow Instructions for: Heart Healthy Diet Activities you can perform: Regular-No Restrictions Follow up Referrals: PCP Follow-up - 1 Week Continued Medications: Albuterol 8.5 GM Inh (Proair Hfa 8.5 GM Inh) 90 Mcg/Act Aer 2 PUFF INH QID 108 mcg/actuation PRN SHORTNESS OF BREATH #1 Ref 0 INHALER Albuterol Neb (Albuterol Neb) 2.5 Mg/3 Ml Neb 2.5 MG NEB Q4HR NEB While awake PRN SOB/WHEEZING #60 Ref 0 NEBULE Amlodipine (Norvasc) 10 Mg Tab 10 MG PO DAILY Blood Pressure Management #30 Ref [address] (Aspir-81) 81 Mg Tabdr 81 MG PO HS Clopidogrel (Plavix) 75 Mg Tab 75 MG PO DAILY Blood Clot Prevention #30 Ref 0 TAB Fluticasone-Salmeterol Inh (Advair Diskus Inh) 250-50 Mcg/Blist Aer 1 PUFF INH BID Rinse mouth after use. #1 Ref 0 INHALER Gabapentin (Gabapentin) 300 Mg Cap 300 MG PO TID #90 Ref 0 CAP Hydrochlorothiazide (Hydrochlorothiazide) 25 Mg Tab 25 MG PO DAILY #30 Ref 0 TAB Ipratropium-Albuterol Inh (Combivent Respimat Inh) 20-100 Nursing Home/Act Aero 1 PUFF INH BID PRN SOB/WHEEZING #1 Ref 0 INHALER Montelukast (Singulair) 10 Mg Tab 10 MG PO HS #30 Ref 0 TAB Nebivolol (Bystolic) 5 Mg Tab 5 MG PO DAILY Blood Pressure Management #30 Ref 0 TAB Nitroglycerin SL (Nitrostat SL) 0.4 Mg Subl 0.4 MG SL DIRECTED 1 tablet under the tongue as needed for chest pain. Repeat every 5 minutes for a total of 3 DOSES or call 911 if NO relief. PRN CHEST PAIN #100 Ref 0 TAB.SL Pantoprazole (Pantoprazole) 40 Mg Tab 40 MG PO DAILY Reflux #30 Ref 0 TAB Prednisone (Prednisone) 20 Mg Tab 20 MG PO DAILY Ref 0 TAB Tamsulosin (Tamsulosin) 0.4 Mg Cap 0.4 MG PO BID Manage Prostate Problems #30 Ref 0 CAP Trung Arceo MD Oct 17, 2016 15:36
--- NOTE | 2016-10-17 21:26 | ECHRPT ---
Indication: Essential (primary) hypertension CONCLUSIONS Normal left ventricular size and wall thickness. The left ventricular systolic function is normal wi th an estimated ejection fraction in the range of 60-65%. Left ventricular diastolic function parameters a re normal. BP: 164 / 99 HR: 73 Rhythm: Sinus MEASUREMENTS (Male / Female) Normal Values Technical Quality:Technically difficult study 2D ECHO LV Diastolic Diameter PLAX 3.1 cm 4.2 - 5.9 / 3.9 - 5.3 cm LV Systolic Diameter PLAX 2.3 cm IVS Diastolic Thickness 1.1 cm 0.6 - 1.0 / 0.6 - 0.9 cm LVPW Diastolic Thickness 1.2 cm 0.6 - 1.0 / 0.6 - 0.9 cm LV Relative Wall Thickness 0.7 LVOT Diameter 1.8 cm LA Systolic Diameter LX 2.7 cm 3.0 - 4.0 / 2.7 - 3.8 cm M-MODE Aortic Root Diameter MM 3.3 cm AV Cusp Separation MM 1.8 cm DOPPLER AV Peak Velocity 162.0 cm/s AV Peak Gradient 10.5 mmHg LVOT Peak Velocity 80.0 cm/s LVOT Peak Gradient 2.6 mmHg AV Area Cont Eq pk 1.3 cm Mitral E Point Velocity 39.5 cm/s Mitral A Point Velocity 51.8 cm/s Mitral E to A Ratio 0.8 PV Peak Velocity 84.2 cm/s PV Peak Gradient 2.8 mmHg FINDINGS LEFT VENTRICLE Normal left ventricular size and wall thickness. The left ventricular systolic function is normal wi th an estimated ejection fraction in the range of 60-65%. Left ventricular diastolic function parameters a re normal. RIGHT VENTRICLE Normal right ventricular size and systolic function. LEFT ATRIUM The left atrial size is normal. RIGHT ATRIUM The right atrial size is normal. ATRIAL SEPTUM Normal atrial septal thickness without atrial level shunting by limited color doppler interrogation. AORTA The aortic root and proximal ascending aorta are normal in size on limited imaging. MITRAL VALVE Structurally normal mitral valve. No mitral valve stenosis or regurgitation. AORTIC VALVE Trileaflet aortic valve. No aortic valve stenosis or regurgitation. TRICUSPID VALVE Structurally normal tricuspid valve. No tricuspid valve stenosis or regurgitation. PULMONARY VALVE The pulmonary valve is not well visualized. VESSELS The inferior vena cava is normal in size. PERICARDIUM No pericardial effusion. Rose Roth MD, FACC (Electronically Signed) Final Date:17 October 2016 21:24
[2016-10-18] MEDS ORDERED: FUROSEMIDE 20 MG TAB PO SCH (09:00)
== END 2016-10-17 17:52 | disposition home or self-care (01) | DRG 192 ==
LOC: NEPE 09:11 → NEDA 12:08 → HCIS 17:21
PROVIDERS: ADMIT Hospitalist; ATTEND Hospitalist
DX: J44.1 Chronic obstructive pulmonary disease with (acute) exacerbation (principal); I10 Essential (primary) hypertension; N40.0 Benign prostatic hyperplasia without lower urinary tract symptoms; I25.10 Atherosclerotic heart disease of native coronary artery without angina pectoris; I16.0 Hypertensive urgency; M51.36 Other intervertebral disc degeneration, lumbar region; I25.2 Old myocardial infarction; Z79.82 Long term (current) use of aspirin; Z87.891 Personal history of nicotine dependence; Z91.14 Patient's other noncompliance with medication regimen; Z85.46 Personal history of malignant neoplasm of prostate
CPT/HCPCS: 36600; 71010; 80053; 80061; 82805; 83880; 84443; 84484; 85025; 85610; 85730; 93005; 93306; 93970; 94640; 94664; 96374; J1940; J2930; J7512

== ENCOUNTER → 2016-11-06 | Outpatient (CLI) | payer MEDICARE, OTHER ==
[~2016-11-06] MED LIST changes: +ALBU0.08 NEB; -ALBU2.5I INH; +ALBUAER3 INH; +AMLO10 PO; -ASPI81 PO; +ASPI81TA81 PO; -AUGM875T PO; +BYST5TAB2 PO; -CLOP75 PO; -GABA300C3 PO; +GABA300C5 PO; -HYDR-2768 PO; +HYDR25TA5 PO; -NEBI5 PO; -NORV10TA PO; +PANT40TA3 PO; +PLAV75TA29 PO; +PRED20 PO; -PROT40TA PO; +TAMS0.4C4 PO; -TAMS0.4C67 PO
[2016-11-06 11:55] LABS: AUTOMATED NEUTROPHIL # 5.1 TH/MM3 (1.8-7.7); BASOPHIL # 0.1 TH/MM3 (0-0.2); BASOPHIL % 1.2 % (0.0-2.0); EOSINOPHIL # 0.4 TH/MM3 (0-0.4); EOSINOPHIL % 6.3 % (0.0-4.0); HEMATOCRIT 39.9 % (39.0-51.0); HEMO FLAGS DIFF FINAL; LYMPH % 16.4 % (9.0-44.0); LYMPHOCYTE # 1.2 TH/MM3 (1.0-4.8); MEAN CELL VOLUME 75.2 FL (80.0-100.0); MEAN CORPUSCULAR HEMOGLOBIN 23.7 PG (27.0-34.0); MEAN CORPUSCULAR HGB CONC 31.5 % (32.0-36.0); MONO % 4.8 % (0.0-8.0); NEUT % 71.3 % (16.0-70.0); PLATELET COUNT 207 TH/MM3 (150-450); RED BLOOD COUNT 5.31 MIL/MM3 (4.50-5.90); RED CELL DISTRIBUTION WIDTH 17.7 % (11.6-17.2); WHITE BLOOD COUNT 7.2 TH/MM3 (4.0-11.0)
[2016-11-06 12:12] LABS: ANION GAP 4 MEQ/L (5-15); AST (GOT) 16 U/L (15-37); BICARBONATE 32.4 MEQ/L (21.0-32.0); BLOOD UREA NITROGEN 21 MG/DL (7-18); CHLORIDE 105 MEQ/L (98-107); GLOMERULAR FILTRATION RATE 73 ML/MIN (>89); GLUCOSE,FASTING 93 MG/DL (74-99); POTASSIUM 3.6 MEQ/L (3.5-5.1); SODIUM (NA) 141 MEQ/L (136-145)
[2016-11-06 12:13] LABS: ALT (GPT) 16 U/L (12-78)
[2016-11-06 12:23] LABS: ALKALINE PHOSPHATASE 53 U/L (45-117); HDL CHOLESTEROL 57.9 MG/DL (40.0-60.0); LDL CHOLESTEROL 73 MG/DL (0-99); TOTAL BILIRUBIN ADULT 0.3 MG/DL (0.2-1.0)
== END ==
LOC: ELAB 10:57
PROVIDERS: ATTEND Family Medicine
DX: I10 Essential (primary) hypertension (principal); E78.5 Hyperlipidemia, unspecified; R53.83 Other fatigue
CPT/HCPCS: 36415; 80053; 80061; 84443; 85025

== ENCOUNTER 2017-04-21 01:36 | Emergency (ER) | payer MEDICARE, MEDICAID ==
[~2017-04-21] VITALS: Ht 175.3 cm; Wt 63.5 kg
[2017-04-21 01:38] VITALS: BP 197/70; PULSE 65; RESP 20; TEMP 98.9; O2SAT 96
--- NOTE | 2017-04-21 02:42 | PD ---
HPI Chief Complaint: Nosebleed Time Seen by Provider: 02:31 Travel History International Travel<30 days: No Contact w/Intl Traveler<30days: No Traveled to known affect area: No History of Present Illness HPI 81-year-old male arrives with epistaxis in the left Montaño. Duration 30 minutes. He believes might be due to digital trauma. No similar prior episodes. Timing constant. Severity moderate. PFSH Past Medical History Hx Anticoagulant Therapy: Yes (ASA) Arthritis: No Asthma: Yes Cancer: Yes (PROSTATE) Cardiovascular Problems: Yes (NM) Chest Pain: No COPD: Yes Coronary Artery Disease: Yes Diabetes: No Diminished Hearing: No Endocrine: No Gastrointestinal Disorders: No Glaucoma: No Genitourinary: No Hepatitis: No Hiatal Hernia: No Hypertension: Yes Immune Disorder: No Musculoskeletal: Yes (BACK PAIN ) Neurologic: No Psychiatric: No Reproductive: No Respiratory: Yes (COPD Emphysema) Integumentary: No Immunizations Current: Yes Radiation Therapy: Yes Sleep Apnea: No Thyroid Disease: No Ulcer: No Past Surgical History Abdominal Surgery: No Cardiac Surgery: No Ear Surgery: No Endocrine Surgery: No Eye Surgery: No Gynecologic Surgery: No Neurologic Surgery: Yes (BACK SURGERY ) Oral Surgery: No Thoracic Surgery: No Other Surgery: Yes (BACK) Social History Alcohol Use: No Tobacco Use: No Substance Use: No Allergies-Medications (Allergen,Severity, Reaction): Coded Allergies: No Known Allergies (Verified , 10/15/16) Reported Meds & Prescriptions Reported Meds & Active Scripts Active Reported Proair Hfa 8.5 GM Inh (Albuterol Sulfate) 90 Mcg/Act Aer 2 Puff INH QID PRN 108 mcg/actuation Hydrochlorothiazide 25 Mg Tab 25 Mg PO DAILY Norvasc (Amlodipine Besylate) 10 Mg Tab 10 Mg PO DAILY Singulair (Montelukast Sodium) 10 Mg Tab 10 Mg PO HS Albuterol Neb (Albuterol Sulfate) 2.5 Mg/3 Ml Neb 2.5 Mg NEB Q4HR NEB PRN While awake Gabapentin 300 Mg Cap 300 Mg PO TID Plavix (Clopidogrel Bisulfate) 75 Mg Tab 75 Mg PO DAILY Advair Diskus Inh (Fluticasone-Salmeterol Inh) 250-50 Mcg/Blist Aer 1 Puff INH BID Rinse mouth after use. Nitrostat SL (Nitroglycerin) 0.4 Mg Subl 0.4 Mg SL DIRECTED PRN 1 tablet under the tongue as needed for chest pain. Repeat every 5 minutes for a total of 3 DOSES or call 911 if NO relief. Bystolic (Nebivolol) 5 Mg Tab 5 Mg PO DAILY Aspir-81 (Aspirin) 81 Mg Tabdr 81 Mg PO HS Combivent Respimat Inh (Ipratropium-Albuterol Inh) 20-100 Snf/Act Aero 1 Puff INH BID PRN Prednisone 20 Mg Tab 20 Mg PO DAILY Tamsulosin (Tamsulosin HCl) 0.4 Mg Cap 0.4 Mg PO BID Pantoprazole (Pantoprazole Sodium) 40 Mg Tab 40 Mg PO DAILY Review of Systems Except as stated in HPI: all other systems reviewed are Neg Physical Exam Narrative GENERAL: 81-year-old male pleasant no acute distress ENT: There is epistaxis from left Montaño. Dried blood about the mustache. Minimal blood about the and posterior oropharynx. SKIN: Warm and dry. HEAD: Normocephalic. EYES: No scleral icterus. No injection or drainage. NECK: Supple, trachea midline. No JVD or lymphadenopathy. CARDIOVASCULAR: Regular rate and rhythm without murmurs, gallops, or rubs. RESPIRATORY: Breath sounds equal bilaterally. No accessory muscle use. MUSCULOSKELETAL: No cyanosis, or edema. BACK: Nontender without obvious deformity. No CVA tenderness. Data Data Last Documented VS Vital Signs Date Time Temp Pulse Resp B/P (MAP) Pulse Ox O2 Delivery O2 Flow Rate FiO2 04/21/17 04:08 04/21/17 01:38 98.9 65 20 96 Room Air Orders Orders Ed Discharge Order (04/21/17 02:42) [facility] Medical Decision Making Medical Screen Exam Complete: Yes Emergency Medical Condition: Yes Medical Record Reviewed: Yes Differential Diagnosis Anterior epistaxis, posterior epistaxis, anemia Narrative Course rhino rocket placed in the left nare with good effect. Patient ready for discharge. Follow-up with ENT on Saturday. Return precautions discussed. Patient verbalized understanding as did his daughter who was at the bedside throughout the ER visit. Diagnosis Primary Impression: Epistaxis Referrals: Jacky Dee MD 1 day Disposition: DISCHARGE HOME Condition: Stable Shashank Braden MD Apr 21, 2017 02:42
== END 2017-04-21 04:10 | disposition home or self-care (01) ==
LOC: NEPE 01:36
DX: R04.0 Epistaxis (principal); J44.9 Chronic obstructive pulmonary disease, unspecified; I10 Essential (primary) hypertension; I25.10 Atherosclerotic heart disease of native coronary artery without angina pectoris; Z79.02 Long term (current) use of antithrombotics/antiplatelets
CPT/HCPCS: 30905

== ENCOUNTER 2017-06-09 11:06 | Emergency (ER) | payer MEDICARE, MEDICAID ==
[~2017-06-09] VITALS: Ht 175.3 cm; Wt 67.0 kg
[2017-06-09 11:10] VITALS: BP 138/76; PULSE 77; RESP 26; TEMP 98.1; O2SAT 99
[2017-06-09] MEDS ORDERED: methylPREDNISolone SOD SUCC 125 MG/2 ML VIAL IV PUSH ONE (11:30)
[2017-06-09] MEDS ORDERED: SODIUM CHLORIDE 0.9% FLUSH 10 ML FLUSH IVF PRN (11:30)
[2017-06-09 11:39] VITALS: BP 155/78; PULSE 61; PULSE 75; RESP 16; O2SAT 95; O2SAT 98
--- NOTE | 2017-06-09 11:39 | PD ---
HPI Chief Complaint: Respiratory Distress Time Seen by Provider: 11:17 Travel History International Travel<30 days: No Contact w/Intl Traveler<30days: No Traveled to known affect area: No History of Present Illness HPI The patient is a 81-year-old [place] male who presents to the emergency department from [facility] for shortness of breath. The patient states he felt a lump in the chest earlier today on the left side, states the lump was above the skin, took a nitroglycerin and the lump went away. He also notes shortness of breath or chest pain progressing over the last several weeks, has a history of COPD and is on oxygen at home via nasal cannula, 2 L, most of the time. Shortness of breath is worse with exertion, associated with a dry cough and wheezing. The patient does have inhalers at home for his wheezing. He is followed by his primary physician, Dr. Anastasiia Sawant, but does not have a bell neck hammerer. He denies any history of known congestive heart failure, pulmonary embolism or DVT. The patient states he had a "slight heart attack" several years ago, however, no stent was placed. However, he was placed on nitroglycerin sublingual as needed. He denies any chest pain or on arrival, does complain of shortness of breath with wheezing. PFSH Past Medical History Hx Anticoagulant Therapy: Yes (ASA) Arthritis: No Asthma: Yes Cancer: Yes (PROSTATE) Cardiovascular Problems: Yes Chest Pain: No COPD: Yes Coronary Artery Disease: Yes Diabetes: No Diminished Hearing: No Endocrine: No Gastrointestinal Disorders: No Glaucoma: No Genitourinary: No Hepatitis: No Hiatal Hernia: No Hypertension: Yes Immune Disorder: No Musculoskeletal: Yes (BACK PAIN ) Neurologic: No Psychiatric: No Reproductive: No Respiratory: Yes Integumentary: No Immunizations Current: Yes Radiation Therapy: Yes Sleep Apnea: No Thyroid Disease: No Ulcer: No Past Surgical History Abdominal Surgery: No Cardiac Surgery: No Ear Surgery: No Endocrine Surgery: No Eye Surgery: No Gynecologic Surgery: No Neurologic Surgery: Yes (BACK SURGERY ) Oral Surgery: No Thoracic Surgery: No Other Surgery: Yes (BACK) Social History Alcohol Use: No Tobacco Use: No Substance Use: No Allergies-Medications (Allergen,Severity, Reaction): Coded Allergies: No Known Allergies (Verified Adverse Reaction, Unknown, 06/09/17) Reported Meds & Prescriptions Reported Meds & Active Scripts Active Reported Proair Hfa 8.5 GM Inh (Albuterol Sulfate) 90 Mcg/Act Aer 2 Puff INH QID PRN 108 mcg/actuation Hydrochlorothiazide 25 Mg Tab 25 Mg PO DAILY Norvasc (Amlodipine Besylate) 10 Mg Tab 10 Mg PO DAILY Singulair (Montelukast Sodium) 10 Mg Tab 10 Mg PO HS Albuterol Neb (Albuterol Sulfate) 2.5 Mg/3 Ml Neb 2.5 Mg NEB Q4HR NEB PRN While awake Gabapentin 300 Mg Cap 300 Mg PO TID Plavix (Clopidogrel Bisulfate) 75 Mg Tab 75 Mg PO DAILY Advair Diskus Inh (Fluticasone-Salmeterol Inh) 250-50 Mcg/Blist Aer 1 Puff INH BID Rinse mouth after use. Nitrostat SL (Nitroglycerin) 0.4 Mg Subl 0.4 Mg SL DIRECTED PRN 1 tablet under the tongue as needed for chest pain. Repeat every 5 minutes for a total of 3 DOSES or call 911 if NO relief. Bystolic (Nebivolol) 5 Mg Tab 5 Mg PO DAILY Aspir-81 (Aspirin) 81 Mg Tabdr 81 Mg PO HS Combivent Respimat Inh (Ipratropium-Albuterol Inh) 20-100 [facility]/Act Aero 1 Puff INH BID PRN Prednisone 20 Mg Tab 20 Mg PO DAILY Tamsulosin (Tamsulosin HCl) 0.4 Mg Cap 0.4 Mg PO BID Pantoprazole (Pantoprazole Sodium) 40 Mg Tab 40 Mg PO DAILY Review of Systems Except as stated in HPI: all other systems reviewed are Neg General / Constitutional: No: Fever HENT: No: Lightheadedness Cardiovascular: Positive: Chest Pain or Discomfort, No: Diaphoresis Respiratory: Positive: Cough, Shortness of Breath, Wheezing Gastrointestinal: No: Nausea, Vomiting, Abdominal Pain Musculoskeletal: No: Edema Neurologic: No: Dizziness Physical Exam Narrative GENERAL: Awake, alert, pleasant 81-year-old male who appears his stated age and is in mild respiratory distress. SKIN: Focused skin assessment warm/dry. HEAD: Atraumatic. Normocephalic. EYES: No injection or drainage. ENT: No nasal bleeding or discharge. Mucous membranes pink and moist. NECK: Trachea midline. No JVD. CARDIOVASCULAR: Regular rate and rhythm. No murmur appreciated. Heart rate in the 70s. No palpable lump over the left chest wall. RESPIRATORY: Mild tachypnea with a respiratory rate of 24. Prolonged expiratory phase with diffuse wheezing. GASTROINTESTINAL: Abdomen soft, non-tender, nondistended. No rebound tenderness. MUSCULOSKELETAL: No obvious deformities. No clubbing. No cyanosis. No edema. NEUROLOGICAL: Awake and alert. No obvious cranial nerve deficits. Motor grossly within normal limits. Normal speech. PSYCHIATRIC: Appropriate mood and affect; insight and judgment normal. Data Data Last Documented VS Vital Signs Date Time Temp Pulse Resp B/P (MAP) Pulse Ox O2 Delivery O2 Flow Rate FiO2 06/09/17 11:44 60 18 95 Room Air 06/09/17 11:39 155/78 (103) 2.00 06/09/17 11:10 98.1 Orders Orders Complete Blood Count With Diff (06/09/17 11:29) Comprehensive Metabolic Panel (06/09/17 11:29) B-Type Natriuretic Peptide (06/09/17 11:29) Act Partial Throm Time (Ptt) (06/09/17 11:29) Prothrombin Time / Inr (Pt) (06/09/17 11:29) Magnesium (Mg) (06/09/17 11:29) Ckmb (Isoenzyme) Profile (06/09/17 11:29) Troponin I (06/09/17 11:29) Iv Access Insert/Monitor (06/09/17 11:29) Electrocardiogram (06/09/17 11:29) Ecg Monitoring (06/09/17 11:29) Oximetry (06/09/17 11:29) Oxygen Administration (06/09/17 11:29) Chest, Single Ap (06/09/17 11:29) Sodium Chloride 0.9% Flush (Ns Flush) (06/09/17 11:30) Methylprednisolone So Succ Inj (Solumedr (06/09/17 11:30) Albuterol-Ipratropium Neb (Duoneb Neb) (06/09/17 11:30) CKMB (06/09/17 11:40) CKMB% (06/09/17 11:40) Troponin I (06/09/17 14:40) Creatine Kinase (Cpk) (06/09/17 14:40) CKMB (06/09/17 15:10) CKMB% (06/09/17 15:10) Labs Laboratory Tests Test 06/09/17 11:40 06/09/17 15:10 White Blood Count 7.8 TH/MM3 Red Blood Count 5.79 MIL/MM3 Hemoglobin 13.4 GM/DL Hematocrit 41.9 % Mean Corpuscular Volume 72.4 FL Mean Corpuscular Hemoglobin 23.1 PG Mean Corpuscular Hemoglobin Concent 31.9 % Red Cell Distribution Width 17.5 % Platelet Count 199 TH/MM3 Mean Platelet Volume 7.2 FL Neutrophils (%) (Auto) 72.1 % Lymphocytes (%) (Auto) 15.4 % Monocytes (%) (Auto) 5.9 % Eosinophils (%) (Auto) 5.4 % Basophils (%) (Auto) 1.2 % Neutrophils # (Auto) 5.6 TH/MM3 Lymphocytes # (Auto) 1.2 TH/MM3 Monocytes # (Auto) 0.5 TH/MM3 Eosinophils # (Auto) 0.4 TH/MM3 Basophils # (Auto) 0.1 TH/MM3 CBC Comment DIFF FINAL Differential Comment Prothrombin Time 10.3 SEC Prothromb Time International Ratio 1.0 RATIO Activated Partial Thromboplast Time 28.2 SEC Blood Urea Nitrogen 20 MG/DL Creatinine 1.22 MG/DL Random Glucose 87 MG/DL Total Protein 7.3 GM/DL Albumin 3.7 GM/DL Calcium Level 8.9 MG/DL Magnesium Level 2.0 MG/DL Alkaline Phosphatase 56 U/L Aspartate Amino Transf (AST/SGOT) 24 U/L Alanine Aminotransferase (ALT/SGPT) 19 U/L Total Bilirubin 0.3 MG/DL Sodium Level 142 MEQ/L Potassium Level 4.0 MEQ/L Chloride Level 103 MEQ/L Carbon Dioxide Level 31.0 MEQ/L Anion Gap 8 MEQ/L Estimat Glomerular Filtration Rate 69 ML/MIN Total Creatine Kinase 732 U/L 641 U/L Creatine Kinase MB 9.2 NG/ML 7.7 NG/ML Creatine Kinase MB % 1.3 % 1.2 % Troponin I LESS THAN 0.02 NG/ML LESS THAN 0.02 NG/ML B-Type Natriuretic Peptide 26 PG/ML MDM Medical Decision Making Medical Screen Exam Complete: Yes Emergency Medical Condition: Yes Medical Record Reviewed: Yes Interpretation(s) EKG reveals normal sinus rhythm with a rate of 60. Q wave in lead V1 and V2. Wavy baseline noted in lead 2, 3, and aVF. Last Impressions Chest X-Ray 06/09/17 1129 Signed Impressions: Service Date/Time: Friday, June 09, 2017 11:34 - CONCLUSION: Stable emphysematous changes. No acute abnormality. Kinza Barnett MD Laboratory Tests Test 06/09/17 11:40 06/09/17 15:10 White Blood Count 7.8 TH/MM3 Red Blood Count 5.79 MIL/MM3 Hemoglobin 13.4 GM/DL Hematocrit 41.9 % Mean Corpuscular Volume 72.4 FL Mean Corpuscular Hemoglobin 23.1 PG Mean Corpuscular Hemoglobin Concent 31.9 % Red Cell Distribution Width 17.5 % Platelet Count 199 TH/MM3 Mean Platelet Volume 7.2 FL Neutrophils (%) (Auto) 72.1 % Lymphocytes (%) (Auto) 15.4 % Monocytes (%) (Auto) 5.9 % Eosinophils (%) (Auto) 5.4 % Basophils (%) (Auto) 1.2 % Neutrophils # (Auto) 5.6 TH/MM3 Lymphocytes # (Auto) 1.2 TH/MM3 Monocytes # (Auto) 0.5 TH/MM3 Eosinophils # (Auto) 0.4 TH/MM3 Basophils # (Auto) 0.1 TH/MM3 CBC Comment DIFF FINAL Differential Comment Prothrombin Time 10.3 SEC Prothromb Time International Ratio 1.0 RATIO Activated Partial Thromboplast Time 28.2 SEC Blood Urea Nitrogen 20 MG/DL Creatinine 1.22 MG/DL Random Glucose 87 MG/DL Total Protein 7.3 GM/DL Albumin 3.7 GM/DL Calcium Level 8.9 MG/DL Magnesium Level 2.0 MG/DL Alkaline Phosphatase 56 U/L Aspartate Amino Transf (AST/SGOT) 24 U/L Alanine Aminotransferase (ALT/SGPT) 19 U/L Total Bilirubin 0.3 MG/DL Sodium Level 142 MEQ/L Potassium Level 4.0 MEQ/L Chloride Level 103 MEQ/L Carbon Dioxide Level 31.0 MEQ/L Anion Gap 8 MEQ/L Estimat Glomerular Filtration Rate 69 ML/MIN Total Creatine Kinase 732 U/L 641 U/L Creatine Kinase MB 9.2 NG/ML 7.7 NG/ML Creatine Kinase MB % 1.3 % 1.2 % Troponin I LESS THAN 0.02 NG/ML LESS THAN 0.02 NG/ML B-Type Natriuretic Peptide 26 PG/ML Differential Diagnosis Differential diagnosis includes COPD exacerbation, bronchitis, pneumonia, pulmonary embolism, congestive heart failure, ACS, pleural effusion, cardiomyopathy. Narrative Course IV was established, labs are drawn and sent, and the patient was placed on cardiac telemetry monitoring and continuous pulse oximetry monitoring. EKG was ordered and interpreted. Chest x-ray was obtained. The patient received Solu- Medrol 125 mg intravenously and duo nebs 3. Troponin and CPK were sent to lab. Initial troponin was negative, CPK was elevated in the 700s. The patient was reevaluated after nebulizers, and symptoms improved. Patient has significantly less wheezing unless shortness of breath. Repeat troponin and CPK level were ordered for 3 hours. Troponin was less than 0.02 and CPK fell to the 600s. Patient's CK-MB was slightly elevated but percentage was normal. I believe this is more related to COPD exacerbation. The patient will be discharged home on prednisone, albuterol, and Zithromax. He is advised to follow-up with his primary physician and return if symptoms worsen or progress. Diagnosis Primary Impression: COPD exacerbation Additional Impression: Atypical chest pain Patient Instructions: General Instructions Additional Instructions: Medications as directed. Please provide the patient a copy of his EKG results, chest x-ray results, and lab results at discharge. Follow-up with your primary physician. Return if symptoms worsen or progress. Med/Other Pt SpecificInfo: Prescription(s) given Scripts Azithromycin (Zithromax Z-Gareth) 250 Mg Dspk 250 MG PO DIRECTED for Infection, #1 DSPK 0 Refills 500 MG (2 tabs) day 1, then 1 tab days 2-5. Prov: Garrick Mcdonnell MD 06/09/17 Albuterol Neb (Albuterol Neb) 2.5 Mg/3 Ml Neb 2.5 MG NEB Q4HR NEB Y for SHORTNESS OF BREATH, #60 NEBULE 0 Refills Prov: Garrick Mcdonnell MD 06/09/17 Albuterol 8.5 GM Inh (Proair Hfa 8.5 GM Inh) 90 Mcg/Act Aer 2 PUFF INH Q6H Y for SHORTNESS OF BREATH, #1 INHALER 0 Refills 108 mcg/actuation Prov: Garrick Mcdonnell MD 06/09/17 Prednisone (Prednisone) 20 Mg Tab 40 MG PO DIRECTED for 5 Days, TAB 0 Refills Prov: Garrick Mcdonnell MD 06/09/17 Disposition: 01 DISCHARGE HOME Condition: Stable Garrick Mcdonnell MD Jun 09, 2017 11:39
--- NOTE | 2017-06-09 12:04 | RADRPT ---
EXAM DATE/TIME: 06/09/2017 11:34 [facility] COMPARISON: CHEST SINGLE AP, October 15, 2016, 9:39. INDICATIONS : Short of breath MEDICAL HISTORY : Venous insufficiency. Myocardial infarction. Chronic obstructive pulmonary disease. Hypertensio n.CAD. Prostate cancer. Arthritis SURGICAL HISTORY : Lumbar herniated discs removed ENCOUNTER: Initial ACUITY: 1 day PAIN SCORE: 0/10 LOCATION: chest FINDINGS: Portable AP view of the chest demonstrates evidence of chronic hyperinflation and emphysema. 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 No evidence of airspace consolidation. Heart size is normal. Vasculatures normal. CONCLUSION: Stable emphysematous changes. No acute abnormality. Kinza Barnett MD on June 09, 2017 at 12:01 Board Certified Radiologist. This report was verified electronically.
[2017-06-09 12:08] LABS: AUTOMATED NEUTROPHIL # 5.6 TH/MM3 (1.8-7.7); BASOPHIL # 0.1 TH/MM3 (0-0.2); BASOPHIL % 1.2 % (0.0-2.0); EOSINOPHIL # 0.4 TH/MM3 (0-0.4); EOSINOPHIL % 5.4 % (0.0-4.0); HEMATOCRIT 41.9 % (39.0-51.0); HEMOGLOBIN 13.4 GM/DL (13.0-17.0); LYMPH % 15.4 % (9.0-44.0); LYMPHOCYTE # 1.2 TH/MM3 (1.0-4.8); MEAN CELL VOLUME 72.4 FL (80.0-100.0); MEAN CORPUSCULAR HEMOGLOBIN 23.1 PG (27.0-34.0); MEAN CORPUSCULAR HGB CONC 31.9 % (32.0-36.0); MEAN PLATELET VOLUME 7.2 FL (7.0-11.0); MONO % 5.9 % (0.0-8.0); MONOCYTE # 0.5 TH/MM3 (0-0.9); NEUT % 72.1 % (16.0-70.0); PLATELET COUNT 199 TH/MM3 (150-450); RED BLOOD COUNT 5.79 MIL/MM3 (4.50-5.90); RED CELL DISTRIBUTION WIDTH 17.5 % (11.6-17.2); WHITE BLOOD COUNT 7.8 TH/MM3 (4.0-11.0)
[2017-06-09 12:16] LABS: PROTHROMBIN TIME - PATIENT 10.3 SEC (9.8-11.6)
[2017-06-09] MEDS: RESP: ALBUTEROL 2.5 MG/IPRATROPIUM 0.5 MG NEB (SCH) INH ×2 (12:21→12:22)
[2017-06-09 12:39] LABS: ALKALINE PHOSPHATASE 56 U/L (45-117); TOTAL BILIRUBIN ADULT 0.3 MG/DL (0.2-1.0); TOTAL PROTEIN 7.3 GM/DL (6.4-8.2); TROPONIN I LESS THAN 0.02 NG/ML (0.02-0.05)
[2017-06-09 13:02] LABS: ALBUMIN 3.7 GM/DL (3.4-5.0); ALT (GPT) 19 U/L (12-78); AST (GOT) 24 U/L (15-37); BLOOD UREA NITROGEN 20 MG/DL (7-18); CALCIUM 8.9 MG/DL (8.5-10.1); CHLORIDE 103 MEQ/L (98-107); CREATININE 1.22 MG/DL (0.60-1.30); GLOMERULAR FILTRATION RATE 69 ML/MIN (>89); GLUCOSE,RANDOM 87 MG/DL (74-106); SODIUM (NA) 142 MEQ/L (136-145)
[2017-06-09 16:18] LABS: TROPONIN I LESS THAN 0.02 NG/ML (0.02-0.05)
[2017-06-09] MEDS ORDERED: PRED20 PO (16:36)
[2017-06-09] MEDS ORDERED: ZITHTAB PO (16:36)
[2017-06-09] MEDS ORDERED: ALBU0.08 NEB (16:36)
[2017-06-09] MEDS ORDERED: ALBUAER3 INH (16:36)
--- NOTE | 2017-06-10 11:48 | EKG ---
Date Performed: 06/09/2017 Time Performed: 11:36:35 PTAGE: 81 years EKG: Sinus rhythm WITH FIRST DEGREE AV BLOCK WITH OCCASIONAL SUPRAVENTRICULAR PREMATURE COMPLEXES ANTEROSEPTAL MYOCARD IAL INFARCTION ABNORMAL ECG Since the PREVIOUS TRACING , no significant change noted PREVIOUS TRACIN10/15/2016 09.55 DOCTOR: Xi Roche Interpretating Date/Time 06/10/2017 11:46:32
--- NOTE | 2017-06-10 12:01 | EKG ---
Date Performed: 06/09/2017 Time Performed: 15:14:51 PTAGE: 81 years EKG: Sinus rhythm WITH FIRST DEGREE AV BLOCK POSSIBLE LEFT ATRIAL ENLARGEMENT LOW QRS VOLTAGE IN EXTREMITY LEADS ANTER OSEPTAL MYOCARDIAL INFARCTION Since the previous tracing, no significant change noted ABNORMAL ECG PREVIOUS TRACING : 06/09/17 11:30 DOCTOR: Xi Roche Interpretating Date/Time 06/10/2017 11:59:38
== END 2017-06-09 16:55 | disposition home or self-care (01) ==
LOC: NEPC 11:06
DX: J44.1 Chronic obstructive pulmonary disease with (acute) exacerbation (principal); I10 Essential (primary) hypertension; I25.10 Atherosclerotic heart disease of native coronary artery without angina pectoris; Z79.02 Long term (current) use of antithrombotics/antiplatelets; Z79.899 Other long term (current) drug therapy
CPT/HCPCS: 71045; 80053; 82550; 82552; 83735; 83880; 84484; 85025; 85610; 85730; 93005; 94664; 96374; 99285; J2930

== ENCOUNTER 2018-02-26 15:54 | Inpatient (IN) ==
--- NOTE | 2018-02-26 17:02 | ED ---
HPI General Chief complaint: Shortness of Breath/Dyspnea Stated complaint: chest pain Time Seen by Provider: 02/26/18 16:40 History of Present Illness HPI narrative: Patient 82-year-old male presents emergency department for evaluation of shortness of breath. Patient has a history of COPD is on nasal cannula oxygen concentrator 24 hours a day at home. Patient states he was seen by Dr. Anastasiia Sawant today and was referred to the emergency department. He states he has been having some shortness of breath particular when he ambulates as well as some swelling of his feet and ankles which is chronic for him as well as some chronic ankle pain. Denies any injury, denies any chest pain denies abdominal pain denies any cough congestion fevers or runny nose. Symptoms moderate, for the past few days, constant, associated signs and symptoms and context as above. Related Data Home Medications Medication Instructions Recorded Confirmed albuterol sulfate 2.5 mg INHALATION Q4-6H PRN 02/26/18 02/26/18 albuterol sulfate [ProAir HFA] 2 puff INHALATION Q4HR 02/26/18 02/26/18 amoxicillin-pot clavulanate 1 tab PO Q12H 02/26/18 02/26/18 [Augmentin] aspirin [Aspirin Low Dose] 81 mg PO DAILY 02/26/18 02/26/18 atenolol 50 mg PO BID 02/26/18 02/26/18 clopidogrel 75 mg PO DAILY 02/26/18 02/26/18 gabapentin 300 mg PO BID 02/26/18 02/26/18 hydrochlorothiazide 25 mg PO DAILY 02/26/18 02/26/18 ipratropium-albuterol [Combivent 1 puff INHALATION QID 02/26/18 02/26/18 Respimat] montelukast 10 mg PO QPM 02/26/18 02/26/18 nebivolol [Bystolic] 5 mg PO DAILY 02/26/18 02/26/18 nitroglycerin 0.4 mg SUBLINGUAL Q5-15M PRN 02/26/18 02/26/18 pantoprazole [Protonix] 40 mg PO DAILY 02/26/18 02/26/18 prednisone 10 mg PO DAILY 02/26/18 02/26/18 tamsulosin 0.4 mg PO DAILY 02/26/18 02/26/18 umeclidinium-vilanterol [Anoro 1 inh INHALATION Q24H 02/26/18 02/26/18 Ellipta] Allergies Allergy/AdvReac Type Severity Reaction Status Date / Time No Known Allergies Allergy Verified 02/26/18 22:40 Review of Systems ROS: all other systems reviewed are negative [facility] Medical History Medical History COPD (chronic obstructive pulmonary disease) (Acute) Coronary artery disease (Acute) History of [place] (myocardial infarction) (Acute) History of prostate cancer (Acute) Hypertension (Acute) Surgical History Surgical History History of back surgery (Acute) Family History Family History Other Family history normal Social History Social History Substance History: No History of Abuse Second Hand Smoke Exposure: No Smoking Status: Former smoker Tobacco Type: Cigarettes How Often Do You Have a Drink Containing Alcohol: Monthly or less Recent Travel in [facility] within the Last 8 Weeks: No Recent Out of Country Travel within the Last 8 Weeks: No Immunization History Tetanus Immunization: <5 Years Exam Narrative Exam Narrative: GENERAL: Well-developed thin male in no obvious distress. SKIN: Focused skin assessment warm/dry. HEAD: Atraumatic. Normocephalic. EYES: Pupils equal and round. No scleral icterus. No injection or drainage. ENT: No nasal bleeding or discharge. Mucous membranes pink and moist. NECK: Trachea midline. No JVD. CARDIOVASCULAR: Regular rate and rhythm. No murmur appreciated. RESPIRATORY: No accessory muscle use. Clear to auscultation. Breath sounds equal bilaterally. No wheezes rales or rhonchi, no increased work of breathing. No retractions. GASTROINTESTINAL: Abdomen soft, non-tender, nondistended. Hepatic and splenic margins not palpable. MUSCULOSKELETAL: No obvious deformities. No clubbing. No cyanosis. Trace edema bilateral lower extremities NEUROLOGICAL: Awake and alert. No obvious cranial nerve deficits. Motor grossly within normal limits. Normal speech. PSYCHIATRIC: Appropriate mood and affect; insight and judgment normal. Course Reevaluation(s) Reevaluation #1: Patient admitted to D44. SPO2 97% on 2.5 L o2. EKG done pending MD read. Pt taken to Xray. Time: 19:15 Reevaluation #2: Respirations even and unlabored. SPO2 97% on 2 half liters. Chest x-ray shows COPD but no infiltrates. Time: 21:29 Reevaluation #3: Initital troponin elevated at 0.06/second troponin elevated at 0.08. Pt denies CP. States he had a "Mild heart attack " a few year s ago. Discussed with Dr. Barone. [facility] for admission. Dr. Buck returned page. Accepts patient for observation admission. Initial Documented Vital Signs Temperature 98.9 F 02/26/18 16:12 Pulse Rate 71 02/26/18 16:12 Respiratory Rate 16 02/26/18 16:12 Blood Pressure 191/77 H 02/26/18 16:12 Pulse Oximetry 100 02/26/18 16:12 Last Documented Vital Signs Temperature 98.6 F 03/01/18 07:40 Pulse Rate 82 03/01/18 07:40 Respiratory Rate 20 03/01/18 07:40 Blood Pressure 123/74 03/01/18 07:40 Pulse Oximetry 98 03/01/18 07:40 Medical Decision Making MDM Narrative Medical decision making narrative: Patient 82-year-old male presents emergency department for evaluation shortness of breath, his lungs actually sound pretty clear and he is saturating well and appears in no obvious distress. Appears to be chronic COPD possibly with an acute component. He will be room to be dealt upon a few treatments have been ordered, chest x-ray basic labs and EKG. He does have oxygen at home, we are attempting to discussed with Dr. Sawant regarding why she sent him here today if she has particular concern we be happy to address it. Otherwise he appears well and I think if his workup is negative I think he could be discharged to an outpatient follow-up. Differential diagnoses include CHF, COPD exacerbation, [place] seems unlikely. Patient was seen as part of rapid medical assessment in triage. Will be handed off to the [facility] provider to follow the above MDM of any outlying problems arise I am available for consultation. 17:22 Patient received into [facility]. See Course for clinical update. Mathieu Zarate APRN Medical Screen Exam Complete: Yes Emergency Medical Condition: Yes Lab Data Result diagrams: 03/01/18 03:44 02/27/18 04:10 Lab Results 02/26/18 02/26/18 02/26/18 Range/Units 17:13 17:13 17:13 WBC 7.9 (4.0-11.0) th/mm3 RBC 4.79 (4.50-5.90) mil/mm3 Hgb 12.1 L (13.0-17.0) gm/dL Hct 37.5 L (39.0-51.0) % MCV 78.3 L (80.0-100.0) fL MCH 25.2 L (27.0-34.0) pg MCHC 32.2 (32.0-36.0) % RDW 17.9 H (11.6-17.2) % Plt Count 154 (150-450) th/mm3 MPV 7.9 (7.0-11.0) fL Neut % (Auto) 79.0 H (16.0-70.0) % Lymph % (Auto) 10.5 (9.0-44.0) % Daggett % (Auto) 6.2 (0.0-8.0) % Eos % (Auto) 3.4 (0.0-4.0) % Baso % (Auto) 0.9 (0.0-2.0) % Neut # (Auto) 6.3 (1.8-7.7) th/mm3 Lymph # (Auto) 0.8 L (1.0-4.8) th/mm3 Daggett # (Auto) 0.5 (0.0-0.9) th/mm3 Eos # (Auto) 0.3 (0.0-0.4) th/mm3 Baso # (Auto) 0.1 (0.0-0.2) th/mm3 WBC Differential . Differential Comment Auto diff final PT 11.0 (9.8-11.6) sec INR 1.1 Ratio APTT 28.7 (23.4-31.7) sec Sodium 144 (136-145) meq/L Potassium 3.7 (3.5-5.1) meq/L Chloride 108 H (98-107) meq/L Carbon Dioxide 30.3 (21.0-32.0) meq/L Anion Gap 6 (5-15) meq/L BUN 14 (7-18) mg/dL Creatinine 1.04 (0.60-1.30) mg/dL Estimated GFR 83 L (>89) mL/min Random Glucose 73 L (74-106) mg/dL Calcium 7.8 L (8.5-10.1) mg/dL Total Bilirubin 0.5 (0.2-1.0) mg/dL AST 29 (15-37) U/L ALT 33 (12-78) U/L Alkaline Phosphatase 43 L (45-117) U/L Total Creatine Kinase (39-308) U/L CK-MB (CK-2) (0.5-3.6) ng/mL CK-MB (CK-2) % (0.0-4.0) % Troponin I 0.06 H (0.02-0.05) ng/mL B-Natriuretic Peptide (0-100) pg/mL Total Protein 6.2 L (6.4-8.2) g/dL Albumin 3.6 (3.4-5.0) g/dL 02/26/18 02/26/18 02/26/18 Range/Units 17:13 20:15 23:30 WBC (4.0-11.0) th/mm3 RBC (4.50-5.90) mil/mm3 Hgb (13.0-17.0) gm/dL Hct (39.0-51.0) % MCV (80.0-100.0) fL MCH (27.0-34.0) pg MCHC (32.0-36.0) % RDW (11.6-17.2) % Plt Count (150-450) th/mm3 MPV (7.0-11.0) fL Neut % (Auto) (16.0-70.0) % Lymph % (Auto) (9.0-44.0) % Daggett % (Auto) (0.0-8.0) % Eos % (Auto) (0.0-4.0) % Baso % (Auto) (0.0-2.0) % Neut # (Auto) (1.8-7.7) th/mm3 Lymph # (Auto) (1.0-4.8) th/mm3 Daggett # (Auto) (0.0-0.9) th/mm3 Eos # (Auto) (0.0-0.4) th/mm3 Baso # (Auto) (0.0-0.2) th/mm3 WBC Differential Differential Comment PT (9.8-11.6) sec INR Ratio APTT (23.4-31.7) sec Sodium (136-145) meq/L Potassium (3.5-5.1) meq/L Chloride (98-107) meq/L Carbon Dioxide (21.0-32.0) meq/L Anion Gap (5-15) meq/L BUN (7-18) mg/dL Creatinine (0.60-1.30) mg/dL Estimated GFR (>89) mL/min Random Glucose (74-106) mg/dL Calcium (8.5-10.1) mg/dL Total Bilirubin (0.2-1.0) mg/dL AST (15-37) U/L ALT (12-78) U/L Alkaline Phosphatase (45-117) U/L Total Creatine Kinase 595 H (39-308) U/L CK-MB (CK-2) 13.4 H (0.5-3.6) ng/mL CK-MB (CK-2) % 2.3 (0.0-4.0) % Troponin I 0.08 H 0.07 H (0.02-0.05) ng/mL B-Natriuretic Peptide 185 H (0-100) pg/mL Total Protein (6.4-8.2) g/dL Albumin (3.4-5.0) g/dL 02/27/18 02/27/18 02/27/18 Range/Units 04:10 07:50 09:45 WBC 7.4 (4.0-11.0) th/mm3 RBC 5.11 (4.50-5.90) mil/mm3 Hgb 12.6 L (13.0-17.0) gm/dL Hct 39.0 (39.0-51.0) % MCV 76.3 L (80.0-100.0) fL MCH 24.7 L (27.0-34.0) pg MCHC 32.4 (32.0-36.0) % RDW 17.6 H (11.6-17.2) % Plt Count 154 (150-450) th/mm3 MPV 7.5 (7.0-11.0) fL Neut % (Auto) 79.2 H (16.0-70.0) % Lymph % (Auto) 9.1 (9.0-44.0) % Daggett % (Auto) 4.9 (0.0-8.0) % Eos % (Auto) 5.7 H (0.0-4.0) % Baso % (Auto) 1.1 (0.0-2.0) % Neut # (Auto) 5.8 (1.8-7.7) th/mm3 Lymph # (Auto) 0.7 L (1.0-4.8) th/mm3 Daggett # (Auto) 0.4 (0.0-0.9) th/mm3 Eos # (Auto) 0.4 (0.0-0.4) th/mm3 Baso # (Auto) 0.1 (0.0-0.2) th/mm3 WBC Differential . Differential Comment Auto diff final PT 11.2 (9.8-11.6) sec INR 1.1 Ratio APTT 29.0 (23.4-31.7) sec Sodium 143 (136-145) meq/L Potassium 3.8 (3.5-5.1) meq/L Chloride 107 (98-107) meq/L Carbon Dioxide 29.5 (21.0-32.0) meq/L Anion Gap 7 (5-15) meq/L BUN 14 (7-18) mg/dL Creatinine 0.95 (0.60-1.30) mg/dL Estimated GFR Greater than 89 (>89) mL/min Random Glucose 92 (74-106) mg/dL Calcium 8.5 (8.5-10.1) mg/dL Total Bilirubin (0.2-1.0) mg/dL AST (15-37) U/L ALT (12-78) U/L Alkaline Phosphatase (45-117) U/L Total Creatine Kinase (39-308) U/L CK-MB (CK-2) (0.5-3.6) ng/mL CK-MB (CK-2) % (0.0-4.0) % Troponin I (0.02-0.05) ng/mL B-Natriuretic Peptide (0-100) pg/mL Total Protein (6.4-8.2) g/dL Albumin (3.4-5.0) g/dL 02/27/18 02/27/18 02/28/18 Range/Units 15:10 21:52 01:05 WBC 12.1 H D (4.0-11.0) th/mm3 RBC 5.49 (4.50-5.90) mil/mm3 Hgb 13.4 (13.0-17.0) gm/dL Hct 42.2 (39.0-51.0) % MCV 76.8 L (80.0-100.0) fL MCH 24.4 L (27.0-34.0) pg MCHC 31.8 L (32.0-36.0) % RDW 17.0 (11.6-17.2) % Plt Count 164 (150-450) th/mm3 MPV 7.7 (7.0-11.0) fL Neut % (Auto) (16.0-70.0) % Lymph % (Auto) (9.0-44.0) % Daggett % (Auto) (0.0-8.0) % Eos % (Auto) (0.0-4.0) % Baso % (Auto) (0.0-2.0) % Neut # (Auto) (1.8-7.7) th/mm3 Lymph # (Auto) (1.0-4.8) th/mm3 Daggett # (Auto) (0.0-0.9) th/mm3 Eos # (Auto) (0.0-0.4) th/mm3 Baso # (Auto) (0.0-0.2) th/mm3 WBC Differential Differential Comment PT (9.8-11.6) sec INR Ratio APTT 29.5 91.7 H* D (23.4-31.7) sec Sodium (136-145) meq/L Potassium (3.5-5.1) meq/L Chloride (98-107) meq/L Carbon Dioxide (21.0-32.0) meq/L Anion Gap (5-15) meq/L BUN (7-18) mg/dL Creatinine (0.60-1.30) mg/dL Estimated GFR (>89) mL/min Random Glucose (74-106) mg/dL Calcium (8.5-10.1) mg/dL Total Bilirubin (0.2-1.0) mg/dL AST (15-37) U/L ALT (12-78) U/L Alkaline Phosphatase (45-117) U/L Total Creatine Kinase (39-308) U/L CK-MB (CK-2) (0.5-3.6) ng/mL CK-MB (CK-2) % (0.0-4.0) % Troponin I (0.02-0.05) ng/mL B-Natriuretic Peptide (0-100) pg/mL Total Protein (6.4-8.2) g/dL Albumin (3.4-5.0) g/dL 02/28/18 02/28/18 02/28/18 Range/Units 01:05 08:18 15:02 WBC (4.0-11.0) th/mm3 RBC (4.50-5.90) mil/mm3 Hgb (13.0-17.0) gm/dL Hct (39.0-51.0) % MCV (80.0-100.0) fL MCH (27.0-34.0) pg MCHC (32.0-36.0) % RDW (11.6-17.2) % Plt Count (150-450) th/mm3 MPV (7.0-11.0) fL Neut % (Auto) (16.0-70.0) % Lymph % (Auto) (9.0-44.0) % Daggett % (Auto) (0.0-8.0) % Eos % (Auto) (0.0-4.0) % Baso % (Auto) (0.0-2.0) % Neut # (Auto) (1.8-7.7) th/mm3 Lymph # (Auto) (1.0-4.8) th/mm3 Daggett # (Auto) (0.0-0.9) th/mm3 Eos # (Auto) (0.0-0.4) th/mm3 Baso # (Auto) (0.0-0.2) th/mm3 WBC Differential Differential Comment PT (9.8-11.6) sec INR Ratio APTT 59.6 H D 33.6 H D 34.8 H (23.4-31.7) sec Sodium (136-145) meq/L Potassium (3.5-5.1) meq/L Chloride (98-107) meq/L Carbon Dioxide (21.0-32.0) meq/L Anion Gap (5-15) meq/L BUN (7-18) mg/dL Creatinine (0.60-1.30) mg/dL Estimated GFR (>89) mL/min Random Glucose (74-106) mg/dL Calcium (8.5-10.1) mg/dL Total Bilirubin (0.2-1.0) mg/dL AST (15-37) U/L ALT (12-78) U/L Alkaline Phosphatase (45-117) U/L Total Creatine Kinase (39-308) U/L CK-MB (CK-2) (0.5-3.6) ng/mL CK-MB (CK-2) % (0.0-4.0) % Troponin I (0.02-0.05) ng/mL B-Natriuretic Peptide (0-100) pg/mL Total Protein (6.4-8.2) g/dL Albumin (3.4-5.0) g/dL 02/28/18 03/01/18 03/01/18 Range/Units 22:24 03:44 03:44 WBC 20.2 H (4.0-11.0) th/mm3 RBC 5.55 (4.50-5.90) mil/mm3 Hgb 13.8 (13.0-17.0) gm/dL Hct 42.5 (39.0-51.0) % MCV 76.6 L (80.0-100.0) fL MCH 24.8 L (27.0-34.0) pg MCHC 32.4 (32.0-36.0) % RDW 17.5 H (11.6-17.2) % Plt Count 181 (150-450) th/mm3 MPV 7.7 (7.0-11.0) fL Neut % (Auto) (16.0-70.0) % Lymph % (Auto) (9.0-44.0) % Daggett % (Auto) (0.0-8.0) % Eos % (Auto) (0.0-4.0) % Baso % (Auto) (0.0-2.0) % Neut # (Auto) (1.8-7.7) th/mm3 Lymph # (Auto) (1.0-4.8) th/mm3 Daggett # (Auto) (0.0-0.9) th/mm3 Eos # (Auto) (0.0-0.4) th/mm3 Baso # (Auto) (0.0-0.2) th/mm3 WBC Differential Differential Comment PT (9.8-11.6) sec INR Ratio APTT 41.2 H 44.1 H (23.4-31.7) sec Sodium (136-145) meq/L Potassium (3.5-5.1) meq/L Chloride (98-107) meq/L Carbon Dioxide (21.0-32.0) meq/L Anion Gap (5-15) meq/L BUN (7-18) mg/dL Creatinine (0.60-1.30) mg/dL Estimated GFR (>89) mL/min Random Glucose (74-106) mg/dL Calcium (8.5-10.1) mg/dL Total Bilirubin (0.2-1.0) mg/dL AST (15-37) U/L ALT (12-78) U/L Alkaline Phosphatase (45-117) U/L Total Creatine Kinase (39-308) U/L CK-MB (CK-2) (0.5-3.6) ng/mL CK-MB (CK-2) % (0.0-4.0) % Troponin I (0.02-0.05) ng/mL B-Natriuretic Peptide (0-100) pg/mL Total Protein (6.4-8.2) g/dL Albumin (3.4-5.0) g/dL Imaging Data Radiologist's impression: Chest X-Ray 02/26/18 16:58 CONCLUSION: 1. COPD. 2. No acute pulmonary infiltrates are demonstrated. 3. Stable pleural-parenchymal scarring in both upper lung galvan compared to the prior study. Chest CTA 02/28/18 00:00 CONCLUSION: 1. Negative for central pulmonary emboli 2. Moderate emphysematous changes with abnormal soft tissue right paratracheal region suspicious for neoplastic process. 3. PET scan would be of benefit for evaluation. Discharge Plan Discharge Disposition Patient Disposition: ED Admit(ED Internal Use Only) Discharge Order Discharge Orders: ED Use Only Admit Order (Routine); Ordered 02/26/18 Ordered By: Pili Zarate Discharge Details Diagnosis: Elevated troponin Physicians Team ED Provider: Khadar Leo ED Midlevel Provider: Pili Zarate Primary Care Provider: Anastasiia Urban Attending Provider: Arian Peng Other Providers: [facility],Insurance ; Casper Medina ; Endy Hawkins Status ED Status: Left Department Discharge Information Discharge Date/Time: 02/26/18 23:50
--- NOTE | 2018-02-26 17:50 | XR ---
EXAM DATE: 02/26/2018 5:46 PM EST AGE/SEX: 82 years / Male INDICATIONS: . Shortness of breath for 1 week CLINICAL DATA: This is the patient's initial encounter. Patient reports that signs and symptoms have been present for 1 week and indicates a pain score of 10/10. MEDICAL/SURGICAL HISTORY: . Venous insufficiency. Myocardial infarction. Chronic obstructive pu lmonary disease. Hypertension. CAD. Prostate cancer. Arthritis None. COMPARISON: [facility] [place], CHEST SINGLE AP, 06/09/2017. . FINDINGS: Today's exam is compared to the prior study. There is hyperaeration of both lung galvan characteristi c of COPD. There is stable scarring in both upper lung galvan with some calcified granulomas in the l eft upper lung. No new or acute pulmonary infiltrates are demonstrated. No pleural effusions are demo nstrated. The heart size is stable. The bony structures are stable. No significant changes are seen c ompared to the prior exam. CONCLUSION: 1. COPD. 2. No acute pulmonary infiltrates are demonstrated. 3. Stable pleural-parenchymal scarring in both upper lung galvan compared to the prior study. Electronically signed by: Edwin Mccain MD 02/26/2018 5:49 PM EST
[2018-02-26 18:18] LABS: Baso # (Auto) 0.1 th/mm3 (0.0-0.2); Baso % (Auto) 0.9 % (0.0-2.0); Eos # (Auto) 0.3 th/mm3 (0.0-0.4); Eos % (Auto) 3.4 % (0.0-4.0); Hematocrit 37.5 % (39.0-51.0); Hemoglobin 12.1 gm/dL (13.0-17.0); Lymph # (Auto) 0.8 th/mm3 (1.0-4.8); Lymph % (Auto) 10.5 % (9.0-44.0); Mean Corpuscular HGB Conc 32.2 % (32.0-36.0); Mean Corpuscular Hemoglobin 25.2 pg (27.0-34.0); Mean Corpuscular Volume 78.3 fL (80.0-100.0); Mean Platelet Volume 7.9 fL (7.0-11.0); Mono # (Auto) 0.5 th/mm3 (0.0-0.9); Mono % (Auto) 6.2 % (0.0-8.0); Neut # (Auto) 6.3 th/mm3 (1.8-7.7); Platelet Count 154 th/mm3 (150-450); Red Blood Count 4.79 mil/mm3 (4.50-5.90); Red Cell Distribution Width 17.9 % (11.6-17.2); White Blood Count 7.9 th/mm3 (4.0-11.0)
[2018-02-26 18:19] LABS: Activated Partial Thrombo Time 28.7 sec (23.4-31.7); INR 1.1 Ratio
[2018-02-26 18:35] LABS: Alanine Aminotransferase 33 U/L (12-78); Albumin 3.6 g/dL (3.4-5.0); Anion Gap 6 meq/L (5-15); Aspartate Aminotransferase 29 U/L (15-37); Blood Urea Nitrogen 14 mg/dL (7-18); Calcium 7.8 mg/dL (8.5-10.1); Carbon Dioxide 30.3 meq/L (21.0-32.0); Chloride 108 meq/L (98-107); Glomerular Filtration Rate 83 mL/min (>89); Glucose,Random 73 mg/dL (74-106); Potassium 3.7 meq/L (3.5-5.1); Sodium 144 meq/L (136-145)
[2018-02-26 18:39] LABS: Alkaline Phosphatase 43 U/L (45-117); Total Protein 6.2 g/dL (6.4-8.2); Troponin I 0.06 ng/mL (0.02-0.05)
[2018-02-26] MEDS ORDERED: Bisacodyl 10 MG Supp RECTAL PRN (22:28)
[2018-02-26] MEDS ORDERED: Acetaminophen 325 MG Tablet PO PRN (22:28)
--- NOTE | 2018-02-26 22:53 | P.HP ---
History of Present Illness Service: [facility] Primary Care Physician: Anastasiia Urban MD History of Present Illness: 82-year-old male with a past medical history significant for COPD on 2 L nasal cannula at home, coronary artery disease, hypertension and history of prostate cancer presents to the emergency department for the evaluation of shortness of breath. The patient reports his symptoms started approximately 1 week ago. He endorses a cough productive of yellow sputum. Denies any fevers or chills. Patient also endorses chest pain that occurred 2-3 days ago that was relieved with nitro. No abdominal pain. No nausea/vomiting/diarrhea. No focal neurologic deficits. Review of Systems All other systems reviewed negative except as stated in [facility] - History History Provided By: Patient - Medical History Medical History: Medical History (Last Updated 02/26/18 @ 22:43 by Katelyn Buck MD) COPD (chronic obstructive pulmonary disease) Coronary artery disease History of NH (myocardial infarction) History of prostate cancer Hypertension - Surgical History Surgical History: Surgical History (Last Updated 02/26/18 @ 22:44 by Katelyn Buck MD) History of back surgery - Family History Family History: Family History (Last Updated 02/26/18 @ 22:44 by Katelyn Buck MD) Other Family history normal - Tobacco History Second Hand Smoke Exposure: No Tobacco Use In Past 30 Days: No Smoking Status: Former smoker Tobacco Type: Cigarettes - Alcohol History How Often Do You Have a Drink Containing Alcohol: Never - Substance Use History Substance History: No History of Abuse - Travel History Recent Travel in the [place] Within the Last 8 Weeks: No Recent Travel Out of the Country Within the Last 8 Weeks: No - Immunization History Tetanus Immunization: <5 Years Medications and Allergies Active Medications: Active Medications Acetaminophen (Tylenol) 650 mg PO Q4H PRN PRN Reason: Temp > 100.4 Al Hydroxide/Mg Hydroxide (Milk Of Magnesia Liq) 30 ml PO Q12H PRN PRN Reason: Mild Constipation Bisacodyl (Dulcolax Supp) 10 mg RECTAL DAILY PRN PRN Reason: SEVERE CONSITIPATION Heparin Sodium (Porcine) (Heparin Inj) 5,000 units SQ Q12H MING Lactulose (Lactulose Liq) 30 ml PO DAILY PRN PRN Reason: SEVERE CONSITIPATION Ondansetron HCl (Zofran Inj) 4 mg IV.PUSH Q6H PRN PRN Reason: NAUSEA OR VOMITING Senna/Docusate Sodium (Isha-Colace) 1 tab PO BID MING Sennosides (Senokot) 17.2 mg PO Q12H PRN PRN Reason: Moderate Constipation Sodium Chloride (Ns Flush) 2 ml IV.FLUSH UNSCH PRN PRN Reason: FLUSH AFTER USING IV ACCESS Sodium Chloride (Ns Flush) 2 ml IV.FLUSH BID MING Sodium Chloride (Ns Flush) 2 ml IV.FLUSH PRN PRN PRN Reason: FLUSH AFTER USING IV ACCESS Allergies Allergy/AdvReac Type Severity Reaction Status Date / Time No Known Allergies Allergy Verified 02/26/18 22:40 Home Medications Medication Instructions Recorded Confirmed Type Aspir-81 81 mg PO DAILY 02/26/18 02/26/18 History Augmentin 875 mg PO Q12H 02/26/18 02/26/18 History albuterol sulfate 2.5 mg INHALATION Q4H PRN 02/26/18 02/26/18 History albuterol sulfate [ProAir HFA] 2 puff INHALATION HS 02/26/18 02/26/18 History atenolol 50 mg PO DAILY 02/26/18 02/26/18 History clopidogrel 75 mg PO DAILY 02/26/18 02/26/18 History gabapentin 300 mg PO BID 02/26/18 02/26/18 History hydrochlorothiazide 25 mg PO DAILY 02/26/18 02/26/18 History ipratropium-albuterol [Combivent 1 puff INHALATION QID 02/26/18 02/26/18 History Respimat] montelukast 10 mg PO QPM 02/26/18 02/26/18 History nebivolol [Bystolic] 5 mg PO DAILY 02/26/18 02/26/18 History nitroglycerin 0.4 mg SUBLINGUAL DAILY PRN 02/26/18 02/26/18 History pantoprazole [Protonix] 40 mg PO DAILY 02/26/18 02/26/18 History prednisone 5 mg PO DAILY 02/26/18 02/26/18 History tamsulosin 0.4 mg PO DAILY 02/26/18 02/26/18 History umeclidinium-vilanterol [Anoro 1 inh INHALATION Q24H 02/26/18 02/26/18 History Ellipta] Exam Vital signs: Vital Signs 02/26/18 16:12 02/26/18 17:36 02/26/18 19:46 Temperature 98.9 F Pulse Rate 71 66 54 L Respiratory Rate 16 22 20 Blood Pressure 191/77 H 171/71 H Pulse Oximetry 100 98 02/26/18 21:00 02/26/18 21:25 02/26/18 22:36 Temperature Pulse Rate 54 L Respiratory Rate 20 Blood Pressure 162/72 H Pulse Oximetry 92 L 100 96 Intake & Output 02/26/18 02/26/18 02/27/18 06:59 18:59 06:59 Weight 67.132 kg Narrative: Gen.: No acute distress Head: Normocephalic. Atraumatic. EENT: Pupils equal round and reactive to light. Nose without drainage. Airway intact. Throat without injection. Cardiovascular: Regular rate and rhythm. No murmurs, rubs or gallops. Respiratory: Lungs clear to auscultation bilaterally. No wheezes or rhonchi. Abdomen: Soft, nontender, nondistended. No peritoneal signs. Musculoskeletal: No gross deformities. No edema. Skin: No obvious rashes or erythema. Neuro: Sensory and motor grossly intact. Cranial nerves II through XII grossly intact. Results - Labs CBC & Chem 7: 02/26/18 17:13 02/26/18 17:13 Labs: Laboratory Results - last 24 hr 02/26/18 02/26/18 02/26/18 17:13 17:13 17:13 WBC 7.9 RBC 4.79 Hgb 12.1 L Hct 37.5 L MCV 78.3 L MCH 25.2 L MCHC 32.2 RDW 17.9 H Plt Count 154 MPV 7.9 Neut % (Auto) 79.0 H Lymph % (Auto) 10.5 [place] % (Auto) 6.2 Eos % (Auto) 3.4 Baso % (Auto) 0.9 Neut # (Auto) 6.3 Lymph # (Auto) 0.8 L [place] # (Auto) 0.5 Eos # (Auto) 0.3 Baso # (Auto) 0.1 WBC Differential . Differential Comment Auto diff final PT 11.0 INR 1.1 APTT 28.7 Sodium 144 Potassium 3.7 Chloride 108 H Carbon Dioxide 30.3 Anion Gap 6 BUN 14 Creatinine 1.04 Estimated GFR 83 L Random Glucose 73 L Calcium 7.8 L Total Bilirubin 0.5 AST 29 ALT 33 Alkaline Phosphatase 43 L Troponin I 0.06 H B-Natriuretic Peptide Total Protein 6.2 L Albumin 3.6 02/26/18 02/26/18 17:13 20:15 WBC RBC Hgb Hct MCV MCH MCHC RDW Plt Count MPV Neut % (Auto) Lymph % (Auto) [place] % (Auto) Eos % (Auto) Baso % (Auto) Neut # (Auto) Lymph # (Auto) [place] # (Auto) Eos # (Auto) Baso # (Auto) WBC Differential Differential Comment PT INR APTT Sodium Potassium Chloride Carbon Dioxide Anion Gap BUN Creatinine Estimated GFR Random Glucose Calcium Total Bilirubin AST ALT Alkaline Phosphatase Troponin I 0.08 H B-Natriuretic Peptide 185 H Total Protein Albumin - Imaging Impressions Chest X-Ray 02/26/18 16:58 CONCLUSION: 1. COPD. 2. No acute pulmonary infiltrates are demonstrated. 3. Stable pleural-parenchymal scarring in both upper lung galvan compared to the prior study. Caprini VTE Risk Assessment Caprini VTE Risk Assessment: Moderate/High Risk (score >= 2) Caprini Risk Assessment Model: Point Value = 1 Point Value = 2 Point Value = 3 Point Value = 5 Age 41-60 Minor surgery BMI > 25 kg/m2 Swollen legs Varicose veins or History of unexplained or recurrent spontaneous Oral contraceptives or hormone replacement Sepsis (< 1 month) Serious lung disease, including pneumonia (< 1 month) Abnormal pulmonary function Acute myocardial infarction Congestive heart failure (< 1 month) History of inflammatory bowel disease Medical patient at bed rest Age 61-74 Arthroscopic surgery Major open surgery (> 45 min) Laparoscopic surgery (> 45 min) Malignancy Confined to bed (> 72 hours) Immobilizing plaster cast Central venous access Age >= 75 History of VTE Family history of VTE Factor V Leiden Prothrombin [id number] Lupus anticoagulant Anticardiolipin antibodies Elevated serum homocysteine Heparin-induced thrombocytopenia Other congenital or acquired thrombophilia Stroke (< 1 month) Elective arthroplasty Hip, pelvis, or leg fracture Acute spinal cord injury (< 1 month) Prophylaxis Regimen: Total Risk Factor Score Risk Level Prophylaxis Regimen 0-1 Low Early ambulation 2 Moderate Order ONE of the following: *Sequential Compression Device (SCD) *Heparin 5000 units SQ BID 3-4 Higher Order ONE of the following medications: *Heparin 5000 units SQ TID *Enoxaparin/Lovenox 40 mg SQ daily (WT < 150 kg, CrCl > 30 mL/min) *Enoxaparin/Lovenox 30 mg SQ daily (WT < 150 kg, CrCl > 10-29 mL/min) *Enoxaparin/Lovenox 30 mg SQ BID (WT < 150 kg, CrCl > 30 mL/min) AND/OR *Sequential Compression Device (SCD) 5 or more Highest Order ONE of the following medications: *Heparin 5000 units SQ TID (Preferred with Epidurals) *Enoxaparin/Lovenox 40 mg SQ daily (WT < 150 kg, CrCl > 30 mL/min) *Enoxaparin/Lovenox 30 mg SQ daily (WT < 150 kg, CrCl > 10-29 mL/min) *Enoxaparin/Lovenox 30 mg SQ BID (WT < 150 kg, CrCl > 30 mL/min) AND *Sequential Compression Device (SCD) Assessment and Plan - Plan Assessment/plan: 1. Shortness of breath/COPD Continue home oxygen Duo nebs CXR with no acute infiltrate Continue home medications 2. Elevated troponin/chest pain/coronary artery disease Patient with elevated troponin of 0.06 Denies active chest pain EKG shows normal sinus rhythm with first-degree AV block, no ST segment elevation or depression, personally reviewed Repeat troponin 0.08 ACS rule out pending; serial troponins/EKGs 3. Hypertension Continue home medications FEN N.p.o. Electrolytes: Monitor and replete as needed Heparin
[2018-02-26] MEDS ORDERED: Heparin - SQ 10,000 UNITS/ML Vial SQ SCH (23:00)
[2018-02-27] MEDS: Atenolol 50 MG Tablet PO SCH ×3 (01:08→21:11)
[2018-02-27 01:19] LABS: Troponin I 0.07 ng/mL (0.02-0.05)
[2018-02-27 01:32] LABS: CKMB Percent 2.3 % (0.0-4.0); Creatine Kinase MB 13.4 ng/mL (0.5-3.6)
[2018-02-27 04:58] LABS: Anion Gap 7 meq/L (5-15); Blood Urea Nitrogen 14 mg/dL (7-18); Calcium 8.5 mg/dL (8.5-10.1); Carbon Dioxide 29.5 meq/L (21.0-32.0); Chloride 107 meq/L (98-107); Glomerular Filtration Rate Greater Than 89 mL/min (>89); Glucose,Random 92 mg/dL (74-106); Potassium 3.8 meq/L (3.5-5.1); Sodium 143 meq/L (136-145)
[2018-02-27 08:20] LABS: Baso # (Auto) 0.1 th/mm3 (0.0-0.2); Baso % (Auto) 1.1 % (0.0-2.0); Eos # (Auto) 0.4 th/mm3 (0.0-0.4); Eos % (Auto) 5.7 % (0.0-4.0); Hemoglobin 12.6 gm/dL (13.0-17.0); Lymph # (Auto) 0.7 th/mm3 (1.0-4.8); Lymph % (Auto) 9.1 % (9.0-44.0); Mean Corpuscular HGB Conc 32.4 % (32.0-36.0); Mean Corpuscular Hemoglobin 24.7 pg (27.0-34.0); Mean Corpuscular Volume 76.3 fL (80.0-100.0); Mean Platelet Volume 7.5 fL (7.0-11.0); Mono # (Auto) 0.4 th/mm3 (0.0-0.9); Mono % (Auto) 4.9 % (0.0-8.0); Neut # (Auto) 5.8 th/mm3 (1.8-7.7); Neut % (Auto) 79.2 % (16.0-70.0); Platelet Count 154 th/mm3 (150-450); Red Blood Count 5.11 mil/mm3 (4.50-5.90); Red Cell Distribution Width 17.6 % (11.6-17.2); White Blood Count 7.4 th/mm3 (4.0-11.0)
[2018-02-27] MEDS: Senna/Docusate Sodium 8.6/50 MG Tablet PO SCH ×2 (09:17→21:12)
[2018-02-27] MEDS: hydroCHLOROthiazide 25 MG Tablet PO SCH (09:17)
[2018-02-27 10:29] LABS: INR 1.1 Ratio; Prothrombin Time 11.2 sec (9.8-11.6)
--- NOTE | 2018-02-27 11:18 | P.PN ---
Subjective Interval history: Nursing denies any acute changes overnight. Patient says he was sent over by a physician at [place] for him being acutely short of breath, says he has chronic shortness of breath at baseline. Says he did have some chest pain a few days ago and had taken nitro for. Does not have acute chest pain at this time upon rest. Says that his shortness of breath still present. Physical Exam Vital signs: Vital Signs 02/26/18 16:12 02/26/18 17:36 02/26/18 19:46 Temperature 98.9 F Pulse Rate 71 66 54 L Respiratory Rate 16 22 20 Blood Pressure 191/77 H 171/71 H Pulse Oximetry 100 98 02/26/18 21:00 02/26/18 21:25 02/26/18 22:28 Temperature Pulse Rate 54 L Respiratory Rate 20 Blood Pressure 162/72 H Pulse Oximetry 92 L 100 100 02/26/18 22:36 02/27/18 00:00 02/27/18 00:46 Temperature 97.8 F Pulse Rate 73 Respiratory Rate 20 Blood Pressure 209/89 H Pulse Oximetry 96 99 97 02/27/18 04:00 02/27/18 04:42 02/27/18 07:35 Temperature 98.7 F 97.5 F L Pulse Rate 60 58 L Respiratory Rate 20 18 Blood Pressure 182/98 H 155/75 H Pulse Oximetry 99 99 02/27/18 08:08 Temperature Pulse Rate 70 Respiratory Rate 20 Blood Pressure Pulse Oximetry Intake & Output 02/26/18 02/27/18 02/27/18 18:59 06:59 18:59 Weight 67.132 kg 63.503 kg Other: Date of Last Bowel Movement 02/27/18 Weight On Admission 67.132 kg Narrative: Diminished breath sounds in the bases, does have some faint wheezing would be consistent with very tight airways Mildly labored breathing Heart sounds regular rate and rhythm, no murmurs No lower extremity edema Awake and alert Results - Labs CBC & Chem 7: 02/27/18 07:50 02/27/18 04:10 Laboratory Results - last 24 hr 02/26/18 02/26/18 02/26/18 17:13 17:13 17:13 WBC 7.9 RBC 4.79 Hgb 12.1 L Hct 37.5 L MCV 78.3 L MCH 25.2 L MCHC 32.2 RDW 17.9 H Plt Count 154 MPV 7.9 Neut % (Auto) 79.0 H Lymph % (Auto) 10.5 Lane % (Auto) 6.2 Eos % (Auto) 3.4 Baso % (Auto) 0.9 Neut # (Auto) 6.3 Lymph # (Auto) 0.[address] # (Auto) 0.5 Eos # (Auto) 0.3 Baso # (Auto) 0.1 WBC Differential . Differential Comment Auto diff final PT 11.0 INR 1.1 APTT 28.7 Sodium 144 Potassium 3.7 Chloride 108 H Carbon Dioxide 30.3 Anion Gap 6 BUN 14 Creatinine 1.04 Estimated GFR 83 L Random Glucose 73 L Calcium 7.8 L Total Bilirubin 0.5 AST 29 ALT 33 Alkaline Phosphatase 43 L Total Creatine Kinase CK-MB (CK-2) CK-MB (CK-2) % Troponin I 0.06 H B-Natriuretic Peptide Total Protein 6.2 L Albumin 3.6 02/26/18 02/26/18 02/26/18 17:13 20:15 23:30 WBC RBC Hgb Hct MCV MCH MCHC RDW Plt Count MPV Neut % (Auto) Lymph % (Auto) Lane % (Auto) Eos % (Auto) Baso % (Auto) Neut # (Auto) Lymph # (Auto) Lane # (Auto) Eos # (Auto) Baso # (Auto) WBC Differential Differential Comment PT INR APTT Sodium Potassium Chloride Carbon Dioxide Anion Gap BUN Creatinine Estimated GFR Random Glucose Calcium Total Bilirubin AST ALT Alkaline Phosphatase Total Creatine Kinase 595 H CK-MB (CK-2) 13.4 H CK-MB (CK-2) % 2.3 Troponin I 0.08 H 0.07 H B-Natriuretic Peptide 185 H Total Protein Albumin 02/27/18 02/27/18 02/27/18 04:10 07:50 09:45 WBC 7.4 RBC 5.11 Hgb 12.6 L Hct 39.0 MCV 76.3 L MCH 24.7 L MCHC 32.4 RDW 17.6 H Plt Count 154 MPV 7.5 Neut % (Auto) 79.2 H Lymph % (Auto) 9.1 Lane % (Auto) 4.9 Eos % (Auto) 5.7 H Baso % (Auto) 1.1 Neut # (Auto) 5.8 Lymph # (Auto) 0.[address] # (Auto) 0.4 Eos # (Auto) 0.4 Baso # (Auto) 0.1 WBC Differential . Differential Comment Auto diff final PT 11.2 INR 1.1 APTT 29.0 Sodium 143 Potassium 3.8 Chloride 107 Carbon Dioxide 29.5 Anion Gap 7 BUN 14 Creatinine 0.95 Estimated GFR Greater than 89 Random Glucose 92 Calcium 8.5 Total Bilirubin AST ALT Alkaline Phosphatase Total Creatine Kinase CK-MB (CK-2) CK-MB (CK-2) % Troponin I B-Natriuretic Peptide Total Protein Albumin - Imaging Impressions Chest X-Ray 02/26/18 16:58 CONCLUSION: 1. COPD. 2. No acute pulmonary infiltrates are demonstrated. 3. Stable pleural-parenchymal scarring in both upper lung galvan compared to the prior study. Assessment and Plan - Plan 82-year-old black male being admitted for shortness of breath, as well as chest pain a few days ago. Shortness of breath/COPD exacerbation Continue home oxygen Duo nebs CXR with no acute infiltrate Solu-Medrol scheduled Pro-air, Combivent Elevated troponin with subacute chest pain History of CAD -Troponins had topped off it 0.08, latest troponin is 0.07 -Continue aspirin, Plavix, Lipitor, atenolol Heparin drip, consulted cardiology Hypertension Continue home medications N.p.o. Heparin drip
[2018-02-27] MEDS ORDERED: Non-Formulary Drug (Ipratropium-Albuterol [Combivent Respimat] 1 PUFF) INHALATION SCH (13:00)
[2018-02-27] MEDS ORDERED: hydrALAZINE 10 MG Tablet PO SCH (13:30)
[2018-02-27] MEDS ORDERED: MethylPREDNISolone Sod Succinate Inj 125 MG/2 ML Vial IM ONE (13:30)
[2018-02-27] MEDS: Heparin 10,000 UNITS/10 ML Vial (for IV use) IV.PUSH STA ×2 (13:41→15:19)
[2018-02-27] MEDS: MethylPREDNISolone Sod Succinate Inj 125 MG/2 ML Vial IV.PUSH SCH ×2 (13:41→22:51)
--- NOTE | 2018-02-27 15:19 | MB ---
cc: Casper Medina MD DATE: 02/27/2018 HISTORY OF PRESENT ILLNESS: Sammy is a very pleasant 82-year-old gentleman who presents to the ER with a chief complaint of near syncope, dyspnea and chest pain. Currently, he is resting in no acute distress. Denies fever, chills, cough, GI or bleeding, PND, orthopnea, chest pain or dizziness. PAST MEDICAL HISTORY: As per history of present illness. He has a history of COPD, CAD, history of myocardial infarction, prostate cancer, hypertension, back surgery. ALLERGIES: NONE. SOCIAL HISTORY: He is a former smoker, currently denies tobacco use, rarely drinks alcohol. MEDICATIONS IN THE HOSPITAL: 1. Albuterol. 2. Aspirin 81 mg a day. 3. Atenolol 50 mg b.i.d. 4. Lipitor 40 mg at bedtime. 5. Plavix 75 mg daily. 6. Heparin drip. 7. Bystolic 5 mg daily. 8. Pantoprazole 40 mg daily. 9. Tamsulosin 0.4 mg daily. PHYSICAL EXAMINATION: VITAL SIGNS: Respiratory rate ranging between 18 and 28, currently 18, blood pressure 140/64. Initial blood pressure 207/100, pulse 63, temperature 98.4, saturation 99% on 1 liter nasal cannula. GENERAL: He is alert and oriented x 3, in no acute distress. NECK: Supple. No JVD. No bruit. CARDIOVASCULAR: S1, S2. No murmurs, rubs or gallops. LUNGS: Clear to auscultation bilaterally. ABDOMEN: Soft, nontender, nondistended with positive bowel sounds. EXTREMITIES: Lower extremity edema. IMAGING STUDIES: Chest x-ray shows COPD, no acute pulmonary infiltrates are demonstrated, stable pleural parenchymal scarring in both upper lung galvan compared to the prior study. EKG normal sinus rhythm with a left bundle branch block. LABORATORY DATA: White count 7.4, hemoglobin 12.6, hematocrit 39.0, platelet count 154. INR is 1.1. Sodium 143, potassium 3.8, chloride 107, bicarbonate 29.5, BUN 14, creatinine 0.95, AST 29, ALT 33. Troponin is 0.06, 0.08 and 0.07. BNP is 185. DIAGNOSES: 1. Suo-IO-jrwwelzet myocardial infarction. 2. Severe hypertension. 3. Near syncope. 4. Decompensated congestive heart failure. 5. Anemia. 6. Coronary artery disease. 7. History of prostate cancer. 8. Chronic obstructive pulmonary disease. DISCUSSION: 1. I suspect the patient's troponin elevation is secondary to increased demand from severe hypertension; however, given his history, certainly cannot rule out a primary obstructive event. At this point in time, agree with aspirin, heparin, Tenormin, Lipitor 40, Plavix. Follow up patient's 2-D echocardiogram. Follow trends and symptoms, blood pressure, and troponin. Casper Medina MD AWC/es , 02:54 PM , 03:03 PM
[2018-02-27] MEDS: Heparin Drip 25,000 UNIT/250 ML BAG IV.CONT PRN (15:29)
[2018-02-27] MEDS: Montelukast 10 MG Tablet PO SCH (17:20)
--- NOTE | 2018-02-27 17:25 | ECG ---
Date Performed: 02/26/2018 Time Performed: 17:27:50 PTAGE: 82 years EKG: Sinus rhythm WITH SINUS ARRHYTHMIA WITH FIRST DEGREE AV BLOCK ANTEROSEPTAL MYOCARDIAL INFARCTION Left bundle bran ch block Compared to previous tracing, the QRS complex has widened, consistent to a new Left bundle b ranch block. The inferior ST segment changes and anterior ST elevation are new but nonspecific with t he development of Left bundle branch block. Clinical correlation is recommended ABNORMAL ECG PREVIOUS TRACING : 06/09/2017 15.14 DOCTOR: Lina Sandhu Interpretating Date/Time 02/27/2018 17:23:45
--- NOTE | 2018-02-27 17:27 | ECG ---
Date Performed: 02/26/2018 Time Performed: 20:14:34 PTAGE: 82 years EKG: SINUS BRADYCARDIA WITH SINUS ARRHYTHMIA WITH FIRST DEGREE AV BLOCK MARKED LEFT AXIS DEVIATI ON LEFT BUNDLE BRANCH BLOCK ABNORMAL ECG PREVIOUS TRACING : 02/26/2018 17.27 Since the previous tracing, no significant change noted DOCTOR: Lina Sandhu Interpretating Date/Time 02/27/2018 17:25:03
--- NOTE | 2018-02-27 17:27 | ECG ---
Date Performed: 02/27/2018 Time Performed: 03:55:43 PTAGE: 82 years EKG: Sinus rhythm WITH FIRST DEGREE AV BLOCK POSSIBLE LEFT ATRIAL ENLARGEMENT Left bundle branch block Left axis devia tion Cannot exclude anterior Myocardial infarction of indeterminate age Since the PREVIOUS TRACING , no significant change noted PREVIOUS TRACIN02/26/2018 23.45 DOCTOR: Lina Sandhu Interpretating Date/Time 02/27/2018 17:25:14
--- NOTE | 2018-02-27 17:27 | ECG ---
Date Performed: 02/26/2018 Time Performed: 23:45:41 PTAGE: 82 years EKG: SINUS BRADYCARDIA WITH SINUS ARRHYTHMIA WITH FIRST DEGREE AV BLOCK MARKED LEFT AXIS DEVIATI ON LEFT BUNDLE BRANCH BLOCK ABNORMAL ECG PREVIOUS TRACING : 02/26/2018 20.14 Since the previous tracing, no significant change noted DOCTOR: Lina Sandhu Interpretating Date/Time 02/27/2018 17:25:18
[2018-02-27] MEDS ORDERED: PT:COMBIVENT RESPIMAT INH SCH (18:00)
[2018-02-28 02:08] LABS: Hematocrit 42.2 % (39.0-51.0); Hemoglobin 13.4 gm/dL (13.0-17.0); Mean Corpuscular HGB Conc 31.8 % (32.0-36.0); Mean Corpuscular Hemoglobin 24.4 pg (27.0-34.0); Mean Corpuscular Volume 76.8 fL (80.0-100.0); Mean Platelet Volume 7.7 fL (7.0-11.0); Platelet Count 164 th/mm3 (150-450); Red Blood Count 5.49 mil/mm3 (4.50-5.90); White Blood Count 12.1 th/mm3 (4.0-11.0)
[2018-02-28] MEDS: Senna/Docusate Sodium 8.6/50 MG Tablet PO SCH ×2 (08:08→22:44)
[2018-02-28] MEDS: Atenolol 50 MG Tablet PO SCH ×2 (08:08→20:52)
[2018-02-28] MEDS: hydroCHLOROthiazide 25 MG Tablet PO SCH (08:09)
[2018-02-28] MEDS: MethylPREDNISolone Sod Succinate Inj 125 MG/2 ML Vial IV.PUSH SCH ×2 (08:09→20:53)
[2018-02-28] MEDS ORDERED: hydrALAZINE 10 MG Tablet PO SCH (10:00)
--- NOTE | 2018-02-28 10:49 | P.PN ---
Subjective Interval history: Patient's IV blew yesterday, subsequently resulting in a delay in heparin drip and Solu-Medrol dosing. Otherwise nursing denies any acute changes overnight. Patient self reports feeling more short of breath today. Says he had some left- sided transient chest pain yesterday. Physical Exam Vital signs: Vital Signs 02/27/18 12:00 02/27/18 12:38 02/27/18 13:55 Temperature 98.4 F Pulse Rate 63 63 Respiratory Rate 18 28 H 18 Blood Pressure 207/100 H 140/64 Pulse Oximetry 99 02/27/18 16:00 02/27/18 18:25 02/27/18 19:52 Temperature 98.3 F 97.8 F Pulse Rate 67 70 62 Respiratory Rate 18 24 16 Blood Pressure 173/79 H 132/66 Pulse Oximetry 100 99 02/27/18 20:00 02/27/18 23:33 02/28/18 00:00 Temperature 97.8 F Pulse Rate 57 L 65 61 Respiratory Rate 16 Blood Pressure 215/87 H Pulse Oximetry 99 02/28/18 04:00 02/28/18 06:06 02/28/18 07:27 Temperature 97.7 F 98.2 F Pulse Rate 62 62 69 Respiratory Rate 16 18 Blood Pressure 185/119 H 193/80 H Pulse Oximetry 99 100 02/28/18 07:29 Temperature Pulse Rate 73 Respiratory Rate Blood Pressure Pulse Oximetry Intake & Output 02/27/18 02/28/18 02/28/18 18:59 06:59 18:59 Other: Date of Last Bowel Movement 02/27/18 02/28/18 Narrative: Still has diminished breath sounds bilaterally in the bases, tight airways, very faint wheezing heard Heart sounds regular rate and rhythm Was able to get up transferring to go to the commode and come back, no lower extremity edema Results - Labs CBC & Chem 7: 03/01/18 03:44 02/27/18 04:10 Laboratory Results - last 24 hr 02/27/18 02/27/18 02/28/18 15:10 21:52 01:05 WBC 12.1 H D RBC 5.49 Hgb 13.4 Hct 42.2 MCV 76.8 L MCH 24.4 L MCHC 31.8 L RDW 17.0 Plt Count 164 MPV 7.7 APTT 29.5 91.7 H* D 02/28/18 02/28/18 01:05 08:18 WBC RBC Hgb Hct MCV MCH MCHC RDW Plt Count MPV APTT 59.6 H D 33.6 H D Microbiology 02/27/18 17:05 Stool Stool Occult Blood (HERB) - Final Hemoccult negative Assessment and Plan - Plan 82-year-old black male being admitted for shortness of breath, as well as chest pain a few days ago. Shortness of breath/COPD exacerbation -We will proceed with CTA to rule out pulmonary embolism -Continue home oxygen -Duo nebs -CXR with no acute infiltrate -Solu-Medrol scheduled -Pro-air, Combivent Elevated troponin with subacute chest pain History of CAD -Troponins had topped off it 0.08, latest troponin is 0.07 -Continue aspirin, Plavix, Lipitor, atenolol Heparin drip, cardiology following, possible cath Hypertension Continue home medications Heparin drip Addendum: CTA showing possible paratracheal mass, consulting pulmonology.
--- NOTE | 2018-02-28 11:05 | P.PNCA ---
Subjective Interval history: alert in nad Medications and Allergies Active Medications: Active Medications Acetaminophen (Tylenol) 650 mg PO Q4H PRN PRN Reason: Temp > 100.4 Al Hydroxide/Mg Hydroxide (Milk Of Magnesia Liq) 30 ml PO Q12H PRN PRN Reason: Mild Constipation Albuterol (Duoneb Neb (Prn)) 1 ampul NEB Q4HR NEB PRN PRN Reason: SOB/wheezing Last Admin: 02/28/18 03:00 Dose: 1 ampul Aspirin (Ecotrin) 81 mg PO DAILY [facility] Last Admin: 02/28/18 08:09 Dose: 81 mg Atenolol (Tenormin) 50 mg PO BID [facility] Last Admin: 02/28/18 08:08 Dose: 50 mg Atorvastatin Calcium (Lipitor) 40 mg PO HS [facility] Last Admin: 02/27/18 21:11 Dose: 40 mg Bisacodyl (Dulcolax Supp) 10 mg RECTAL DAILY PRN PRN Reason: SEVERE CONSITIPATION Clopidogrel Bisulfate (Plavix) 75 mg PO DAILY [facility] Last Admin: 02/28/18 08:08 Dose: 75 mg Enalaprilat (Vasotec Inj) 1.25 mg IV.PUSH Q4H PRN PRN Reason: SBP>160, DBP>90 Hydralazine HCl (Apresoline) 10 mg PO ONCE [facility] Hydrochlorothiazide (Hydrodiuril) 25 mg PO DAILY [facility] Last Admin: 02/28/18 08:09 Dose: 25 mg Heparin Sodium/Dextrose (Heparin/D5w 25,000 U/250 Ml) 25,000 unit in 250 mls @ 8 mls/hr IV.CONT TITRATE PRN; Protocol PRN Reason: Per Protocol Last Titration: 02/28/18 09:50 Dose: 600 units/hr, 6 mls/hr Lactulose (Lactulose Liq) 30 ml PO DAILY PRN PRN Reason: SEVERE CONSITIPATION Methylprednisolone Sodium Succinate (Solumedrol Inj) 60 mg IV.PUSH Q12HR [facility] Last Admin: 02/28/18 08:09 Dose: 60 mg Montelukast Sodium (Singulair) 10 mg PO QPM [facility] Last Admin: 02/27/18 17:20 Dose: 10 mg Nebivolol (Bystolic) 5 mg PO DAILY [facility] Last Admin: 02/28/18 08:09 Dose: 5 mg Ondansetron HCl (Zofran Inj) 4 mg IV.PUSH Q6H PRN PRN Reason: NAUSEA OR VOMITING Pantoprazole Sodium (Protonix) 40 mg PO DAILY [facility] Last Admin: 02/28/18 08:08 Dose: 40 mg Pt:Combivent (Respimat) 0 each INH QID [facility] Senna/Docusate Sodium (Isha-Colace) 1 tab PO BID [facility] Last Admin: 02/28/18 08:08 Dose: Not Given Sennosides (Senokot) 17.2 mg PO Q12H PRN PRN Reason: Moderate Constipation Sodium Chloride (Ns Flush) 2 ml IV.FLUSH BID [facility] Last Admin: 02/28/18 08:12 Dose: 2 ml Sodium Chloride (Ns Flush) 2 ml IV.FLUSH PRN PRN PRN Reason: FLUSH AFTER USING IV ACCESS Tamsulosin HCl (Flomax) 0.4 mg PO DAILY [facility] Last Admin: 02/28/18 08:09 Dose: 0.4 mg Allergies Allergy/AdvReac Type Severity Reaction Status Date / Time No Known Allergies Allergy Verified 02/26/18 22:40 Home Medications Medication Instructions Recorded Confirmed Type albuterol sulfate 2.5 mg INHALATION Q4-6H PRN 02/26/18 02/26/18 History albuterol sulfate [ProAir HFA] 2 puff INHALATION Q4HR 02/26/18 02/26/18 History amoxicillin-pot clavulanate 1 tab PO Q12H 02/26/18 02/26/18 History [Augmentin] aspirin [Aspirin Low Dose] 81 mg PO DAILY 02/26/18 02/26/18 History atenolol 50 mg PO BID 02/26/18 02/26/18 History clopidogrel 75 mg PO DAILY 02/26/18 02/26/18 History gabapentin 300 mg PO BID 02/26/18 02/26/18 History hydrochlorothiazide 25 mg PO DAILY 02/26/18 02/26/18 History ipratropium-albuterol [Combivent 1 puff INHALATION QID 02/26/18 02/26/18 History Respimat] montelukast 10 mg PO QPM 02/26/18 02/26/18 History nebivolol [Bystolic] 5 mg PO DAILY 02/26/18 02/26/18 History nitroglycerin 0.4 mg SUBLINGUAL Q5-15M PRN 02/26/18 02/26/18 History pantoprazole [Protonix] 40 mg PO DAILY 02/26/18 02/26/18 History prednisone 10 mg PO DAILY 02/26/18 02/26/18 History tamsulosin 0.4 mg PO DAILY 02/26/18 02/26/18 History umeclidinium-vilanterol [Anoro 1 inh INHALATION Q24H 02/26/18 02/26/18 History Ellipta] Physical Exam Vital signs: Vital Signs 02/27/18 12:00 02/27/18 12:38 02/27/18 13:55 Temperature 98.4 F Pulse Rate 63 63 Respiratory Rate 18 28 H 18 Blood Pressure 207/100 H 140/64 Pulse Oximetry 99 02/27/18 16:00 02/27/18 18:25 02/27/18 19:52 Temperature 98.3 F 97.8 F Pulse Rate 67 70 62 Respiratory Rate 18 24 16 Blood Pressure 173/79 H 132/66 Pulse Oximetry 100 99 02/27/18 20:00 02/27/18 23:33 02/28/18 00:00 Temperature 97.8 F Pulse Rate 57 L 65 61 Respiratory Rate 16 Blood Pressure 215/87 H Pulse Oximetry 99 02/28/18 04:00 02/28/18 06:06 02/28/18 07:27 Temperature 97.7 F 98.2 F Pulse Rate 62 62 69 Respiratory Rate 16 18 Blood Pressure 185/119 H 193/80 H Pulse Oximetry 99 100 02/28/18 07:29 Temperature Pulse Rate 73 Respiratory Rate Blood Pressure Pulse Oximetry Intake & Output 02/27/18 02/28/18 02/28/18 18:59 06:59 18:59 Other: Date of Last Bowel Movement 02/27/18 02/28/18 - Constitutional no acute distress - Routine HEENT Exam Head: Present: normocephalic - Routine Neck Exam Present: supple - Routine Respiratory Exam Present: CTA bilaterally - Routine Cardiovascular Exam Present: S1, S2 - Routine Abdominal Exam Present: soft - Routine Extremities Exam Comments: no jerome Results 02/28/18 01:05 02/27/18 04:10 Cardiac Enzymes 02/26/18 02/26/18 02/26/18 Range/Units 17:13 17:13 20:15 AST 29 (15-37) U/L CK-MB (CK-2) (0.5-3.6) ng/mL Troponin I 0.06 H 0.08 H (0.02-0.05) ng/mL B-Natriuretic Peptide 185 H (0-100) pg/mL 02/26/18 Range/Units 23:30 AST (15-37) U/L CK-MB (CK-2) 13.4 H (0.5-3.6) ng/mL Troponin I 0.07 H (0.02-0.05) ng/mL B-Natriuretic Peptide (0-100) pg/mL Coagulation 02/26/18 02/26/18 02/27/18 Range/Units 17:13 17:13 09:45 PT 11.0 11.2 (9.8-11.6) sec APTT 28.7 29.0 (23.4-31.7) sec B-Natriuretic Peptide 185 H (0-100) pg/mL 02/27/18 02/27/18 02/28/18 Range/Units 15:10 21:52 01:05 PT (9.8-11.6) sec APTT 29.5 91.7 H* D 59.6 H D (23.4-31.7) sec B-Natriuretic Peptide (0-100) pg/mL 02/28/18 Range/Units 08:18 PT (9.8-11.6) sec APTT 33.6 H D (23.4-31.7) sec B-Natriuretic Peptide (0-100) pg/mL CBC 02/26/18 02/27/18 02/28/18 Range/Units 17:13 07:50 01:05 WBC 7.9 7.4 12.1 H D (4.0-11.0) th/mm3 RBC 4.79 5.11 5.49 (4.50-5.90) mil/mm3 Hgb 12.1 L 12.6 L 13.4 (13.0-17.0) gm/dL Hct 37.5 L 39.0 42.2 (39.0-51.0) % Plt Count 154 154 164 (150-450) th/mm3 Neut # (Auto) 6.3 5.8 (1.8-7.7) th/mm3 Lymph # (Auto) 0.8 L 0.7 L (1.0-4.8) th/mm3 [place] # (Auto) 0.5 0.4 (0.0-0.9) th/mm3 Eos # (Auto) 0.3 0.4 (0.0-0.4) th/mm3 Baso # (Auto) 0.1 0.1 (0.0-0.2) th/mm3 Comprehensive Metabolic Panel 02/26/18 02/27/18 Range/Units 17:13 04:10 Sodium 144 143 (136-145) meq/L Potassium 3.7 3.8 (3.5-5.1) meq/L Chloride 108 H 107 (98-107) meq/L Carbon Dioxide 30.3 29.5 (21.0-32.0) meq/L BUN 14 14 (7-18) mg/dL Creatinine 1.04 0.95 (0.60-1.30) mg/dL Calcium 7.8 L 8.5 (8.5-10.1) mg/dL AST 29 (15-37) U/L ALT 33 (12-78) U/L Alkaline Phosphatase 43 L (45-117) U/L Total Protein 6.2 L (6.4-8.2) g/dL Albumin 3.6 (3.4-5.0) g/dL Intake and Output 02/27/18 02/28/18 02/28/18 22:59 06:59 14:59 Other: Date of Last Bowel Movement 02/27/18 02/28/18 - Imaging and Cardiology Imaging: Impressions Chest X-Ray 02/26/18 16:58 CONCLUSION: 1. COPD. 2. No acute pulmonary infiltrates are demonstrated. 3. Stable pleural-parenchymal scarring in both upper lung [place] compared to the prior study. Assessment and Plan - Assessment (1) NSTEMI (non-ST elevated myocardial infarction) Code(s): I21.4 - Non-ST elevation (NSTEMI) myocardial infarction Status: Acute (2) HTN (hypertension) Code(s): I10 - Essential (primary) hypertension Status: Acute (3) CAD (coronary artery disease) Code(s): I25.10 - Atherosclerotic heart disease of [place] coronary artery without angina pectoris Status: Acute (4) Elevated troponin Code(s): R74.8 - Abnormal levels of other serum enzymes Status: Acute - Plan 1.) NSTEMI - suspect trop elavation secondary to severe htn, rec continue aspirin, lipitor, atenolol, f/u echo
--- NOTE | 2018-02-28 12:04 | CT ---
EXAM DATE: 02/28/2018 11:45 AM EST AGE/SEX: 82 years / Male INDICATIONS: Shortness of breath and chest pain. CLINICAL DATA: This is the patient's initial encounter. Patient reports that signs and symptoms have been present for 1 day and indicates a pain score of 4/10. MEDICAL/SURGICAL HISTORY: Chronic obstructive pulmonary disease. Cardiovascular disease. Carcinom a, prostatic. . Back surgery. RADIATION DOSE: 7.80 CTDI (mGy) COMPARISON: . TECHNIQUE: Volumetric scanning was performed using a multi-row detector CT scanner during bolus infu lorenzo of 75 ml Omnipaque 350 (iohexol) nonionic water-soluble contrast as a single exam dose. The avi a was post processed with a variety of visualization algorithms including full volume maximum intensi ty projection and sliding thin slab reformation. Using automated exposure control and adjustment of t he mA and/or kV according to patient size, radiation dose was kept as low as reasonably achievable to obtain optimal diagnostic quality images. DICOM format image data is available electronically for r eview and comparison. FINDINGS: Pulmonary Arteries: Apical bullous changes and pleural thickening is evident. Abnormal soft tissue i s seen in the right paratracheal region. There is no pleural effusion. There is no evidence for central pulmonary emboli. Mediastinum: Moderate coronary calcifications are noted again noted is a soft tissue right paratrache al region suspicious for neoplastic process. There is reflux into the hepatic veins suggesting pulmonary hypertension. . Other: Upper abdominal contents visualized are grossly unremarkable. CONCLUSION: 1. Negative for central pulmonary emboli 2. Moderate emphysematous changes with abnormal soft tissue right paratracheal region suspicious for neoplastic process. 3. PET scan would be of benefit for evaluation. Electronically signed by: Landry See MD 02/28/2018 12:03 PM EST
[2018-02-28] MEDS: Montelukast 10 MG Tablet PO SCH (17:47)
--- NOTE | 2018-02-28 23:05 | MB ---
cc: Endy Hawkins MD DATE: 02/28/2018 REQUESTING PHYSICIAN: Arian Peng MD REASON FOR CONSULTATION: Lung paratracheal mass. HISTORY OF PRESENT ILLNESS: Mr. Santos is an 82-year-old male with longstanding history of COPD, uses oxygen 2 liter nasal cannula, history of coronary artery disease, hypertension, history of prostate cancer. The patient came to the hospital with worsening of his shortness of breath. He can walk short distance and it is hard for him to walk anymore. Did not have any chest pain. No fever or chills. No night sweats. No nausea or vomiting. He was feeling weak and dizzy. The patient was evaluated in the hospital. His WBC count is 12.1, hemoglobin 13.4, hematocrit 42.2, MCV 76, platelet count 164. Sodium 140, potassium 3.8, chloride 107, CO2 of 29, BUN 14, creatinine 0.95. He had a CTA of the chest done. It does not show any pulmonary embolism, shows underlying emphysema and has a soft tissue, right paratracheal mass concerning for neoplastic process and PET scan is suggested. PAST MEDICAL HISTORY: Significant for history of hypertension, coronary artery disease, COPD, he is oxygen dependent, history of CA of the prostate. MEDICATIONS: He is currently takin. DuoNeb nebulizer treatment. 2. Aspirin 81 mg a day. 3. Tenormin 50 mg twice a day. 4. Lipitor 40 mg a day. 5. Dulcolax suppository. 6. Plavix 75 mg a day. 7. Vasotec p.r.n. 8. Heparin drip. 9. Hydralazine 10 mg. 10. Hydrochlorothiazide 25 mg a day. 11. Solu-Medrol 60 mg q. 12 hours. 12. Singulair 10 mg a day. 13. Bystolic 5 mg a day. 14. Protonix 40 mg a day. 15. Flomax 0.4 mg a day. ALLERGIES: NO KNOWN DRUG ALLERGIES. SOCIAL HISTORY: He has a history of smoking, which he quit 20 years ago. No alcohol abuse. He used to work for [employer]. FAMILY HISTORY: He is for more than 50 years. He has 6 sons and 5 daughters. His youngest child is 56-year-old. REVIEW OF SYSTEMS: He has lost some weight. Denies any hemoptysis. No DVT or pulmonary embolism. PHYSICAL EXAMINATION: GENERAL: Thin built, frail, elderly male, mildly short of breath, not in acute distress. VITAL SIGNS: Blood pressure 132/63, heart rate 74, respirations 20, temperature 98.7. HEENT: Pupils are equal and reactive to light. He has bilateral cataracts. Oral mucosa and nasal mucosa normal. NECK: Supple. JVP not raised. CHEST: Symmetrical bilaterally. He has few rhonchi. He has hyperresonant chest. CARDIOVASCULAR: S1, S2 normal. ABDOMEN: Benign. EXTREMITIES: No edema. IMPRESSION: 1. Chronic obstructive pulmonary disease with emphysema. 2. Right paratracheal mass concerning for malignancy. 3. Weight loss. 4. Coronary artery disease, status post myocardial infarction in the past. 5. History of cancer of the prostate. PLAN: I discussed with the patient. He will need a PET scan as outpatient. If the PET scan is positive, he will need a biopsy. Continue aerosol treatment and IV Solu-Medrol. Cardiac workup is underway. Further treatment will depend on the course in the hospital. Thank you Dr. Peng for this consult. MD VIDYA Keller/dk/kayla , 07:34 PM , 07:43 PM
[2018-03-01 04:07] LABS: Hematocrit 42.5 % (39.0-51.0); Hemoglobin 13.8 gm/dL (13.0-17.0); Mean Corpuscular HGB Conc 32.4 % (32.0-36.0); Mean Corpuscular Hemoglobin 24.8 pg (27.0-34.0); Mean Corpuscular Volume 76.6 fL (80.0-100.0); Mean Platelet Volume 7.7 fL (7.0-11.0); Platelet Count 181 th/mm3 (150-450); Red Blood Count 5.55 mil/mm3 (4.50-5.90); Red Cell Distribution Width 17.5 % (11.6-17.2); White Blood Count 20.2 th/mm3 (4.0-11.0)
[2018-03-01] MEDS: Heparin Drip 25,000 UNIT/250 ML BAG IV.CONT PRN (06:16)
--- NOTE | 2018-03-01 09:20 | P.PNCA ---
Subjective Interval history: c/o abdominal discomfort, denies chest pain Medications and Allergies Active Medications: Active Medications Acetaminophen (Tylenol) 650 mg PO Q4H PRN PRN Reason: Temp > 100.4 Al Hydroxide/Mg Hydroxide (Milk Of Magnesia Liq) 30 ml PO Q12H PRN PRN Reason: Mild Constipation Albuterol (Duoneb Neb (Prn)) 1 ampul NEB Q4HR NEB PRN PRN Reason: SOB/wheezing Last Admin: 02/28/18 18:12 Dose: 1 ampul Aspirin (Ecotrin) 81 mg PO DAILY [facility] Last Admin: 02/28/18 08:09 Dose: 81 mg Atenolol (Tenormin) 50 mg PO BID [facility] Last Admin: 02/28/18 20:52 Dose: 50 mg Atorvastatin Calcium (Lipitor) 40 mg PO HS [facility] Last Admin: 02/28/18 20:52 Dose: 40 mg Bisacodyl (Dulcolax Supp) 10 mg RECTAL DAILY PRN PRN Reason: SEVERE CONSITIPATION Clopidogrel Bisulfate (Plavix) 75 mg PO DAILY [facility] Last Admin: 02/28/18 08:08 Dose: 75 mg Enalaprilat (Vasotec Inj) 1.25 mg IV.PUSH Q4H PRN PRN Reason: SBP>160, DBP>90 Last Admin: 03/01/18 00:34 Dose: 1.25 mg Hydralazine HCl (Apresoline) 10 mg PO ONCE [facility] Hydrochlorothiazide (Hydrodiuril) 25 mg PO DAILY [facility] Last Admin: 02/28/18 08:09 Dose: 25 mg Heparin Sodium/Dextrose (Heparin/D5w 25,000 U/250 Ml) 25,000 unit in 250 mls @ 8 mls/hr IV.CONT TITRATE PRN; Protocol PRN Reason: Per Protocol Last Admin: 03/01/18 06:16 Dose: 700 units/hr, 7 mls/hr Lactulose (Lactulose Liq) 30 ml PO DAILY PRN PRN Reason: SEVERE CONSITIPATION Methylprednisolone Sodium Succinate (Solumedrol Inj) 60 mg IV.PUSH Q12HR [facility] Last Admin: 02/28/18 20:53 Dose: 60 mg Montelukast Sodium (Singulair) 10 mg PO QPM [facility] Last Admin: 02/28/18 17:47 Dose: 10 mg Nebivolol (Bystolic) 5 mg PO DAILY [facility] Last Admin: 02/28/18 08:09 Dose: 5 mg Ondansetron HCl (Zofran Inj) 4 mg IV.PUSH Q6H PRN PRN Reason: NAUSEA OR VOMITING Pantoprazole Sodium (Protonix) 40 mg PO DAILY [facility] Last Admin: 02/28/18 08:08 Dose: 40 mg Pt:Combivent (Respimat) 0 each INH QID [facility] Senna/Docusate Sodium (Isha-Colace) 1 tab PO BID [facility] Last Admin: 02/28/18 22:44 Dose: Not Given Sennosides (Senokot) 17.2 mg PO Q12H PRN PRN Reason: Moderate Constipation Sodium Chloride (Ns Flush) 2 ml IV.FLUSH BID [facility] Last Admin: 02/28/18 20:55 Dose: 2 ml Sodium Chloride (Ns Flush) 2 ml IV.FLUSH PRN PRN PRN Reason: FLUSH AFTER USING IV ACCESS Tamsulosin HCl (Flomax) 0.4 mg PO DAILY [facility] Last Admin: 02/28/18 08:09 Dose: 0.4 mg Allergies Allergy/AdvReac Type Severity Reaction Status Date / Time No Known Allergies Allergy Verified 02/26/18 22:40 Home Medications Medication Instructions Recorded Confirmed Type albuterol sulfate 2.5 mg INHALATION Q4-6H PRN 02/26/18 02/26/18 History albuterol sulfate [ProAir HFA] 2 puff INHALATION Q4HR 02/26/18 02/26/18 History amoxicillin-pot clavulanate 1 tab PO Q12H 02/26/18 02/26/18 History [Augmentin] aspirin [Aspirin Low Dose] 81 mg PO DAILY 02/26/18 02/26/18 History atenolol 50 mg PO BID 02/26/18 02/26/18 History clopidogrel 75 mg PO DAILY 02/26/18 02/26/18 History gabapentin 300 mg PO BID 02/26/18 02/26/18 History hydrochlorothiazide 25 mg PO DAILY 02/26/18 02/26/18 History ipratropium-albuterol [Combivent 1 puff INHALATION QID 02/26/18 02/26/18 History Respimat] montelukast 10 mg PO QPM 02/26/18 02/26/18 History nebivolol [Bystolic] 5 mg PO DAILY 02/26/18 02/26/18 History nitroglycerin 0.4 mg SUBLINGUAL Q5-15M PRN 02/26/18 02/26/18 History pantoprazole [Protonix] 40 mg PO DAILY 02/26/18 02/26/18 History prednisone 10 mg PO DAILY 02/26/18 02/26/18 History tamsulosin 0.4 mg PO DAILY 02/26/18 02/26/18 History umeclidinium-vilanterol [Anoro 1 inh INHALATION Q24H 02/26/18 02/26/18 History Ellipta] Physical Exam Vital signs: Vital Signs 02/28/18 11:34 02/28/18 12:00 02/28/18 15:51 Temperature 97.8 F 98.7 F Pulse Rate 69 68 74 Respiratory Rate 17 18 20 Blood Pressure 160/72 H 132/63 Pulse Oximetry 95 99 97 02/28/18 18:12 02/28/18 19:36 02/28/18 20:00 Temperature 98.0 F Pulse Rate 74 68 65 Respiratory Rate 20 20 Blood Pressure 144/68 H Pulse Oximetry 94 L 02/28/18 22:46 03/01/18 00:00 03/01/18 01:49 Temperature 97.7 F Pulse Rate 64 Respiratory Rate 17 Blood Pressure 198/86 H 146/72 H Pulse Oximetry 96 99 03/01/18 04:00 03/01/18 07:07 03/01/18 07:40 Temperature 98.1 F 98.6 F Pulse Rate 75 82 Respiratory Rate 22 20 Blood Pressure 198/88 H 123/74 Pulse Oximetry 100 99 98 Intake & Output 02/28/18 03/01/18 03/01/18 18:59 06:59 18:59 Intake Total 152 / 152 98 / 98 Balance 152 / 152 98 / 98 Intake: IV 152 / 152 98 / 98 Heparin/D5W 25,000 U/250 mL 25, 152 / 152 98 / 98 000 unit In 250 ml @ 800 UNITS/ HR 8 mls/hr IV.CONT TITRATE PRN Rx#:[id number] Other: Date of Last Bowel Movement 02/28/18 02/27/18 - Constitutional no acute distress - Routine HEENT Exam Head: Present: normocephalic - Routine Neck Exam Present: supple - Routine Respiratory Exam Present: CTA bilaterally - Routine Cardiovascular Exam Present: S1, S2 - Routine Abdominal Exam Present: soft - Routine Extremities Exam Comments: no jerome Results 03/01/18 03:44 02/27/18 04:10 Coagulation 02/27/18 02/27/18 02/27/18 Range/Units 09:45 15:10 21:52 PT 11.2 (9.8-11.6) sec APTT 29.0 29.5 91.7 H* D (23.4-31.7) sec 02/28/18 02/28/18 02/28/18 Range/Units 01:05 08: 15:02 PT (9.8-11.6) sec APTT 59.6 H D 33.6 H D 34.8 H (23.4-31.7) sec 02/28/18 03/01/18 Range/Units 22:24 03:44 PT (9.8-11.6) sec APTT 41.2 H 44.1 H (23.4-31.7) sec CBC 02/28/18 03/01/18 Range/Units 01:05 03:44 WBC 12.1 H D 20.2 H (4.0-11.0) th/mm3 RBC 5.49 5.55 (4.50-5.90) mil/mm3 Hgb 13.4 13.8 (13.0-17.0) gm/dL Hct 42.2 42.5 (39.0-51.0) % Plt Count 164 181 (150-450) th/mm3 Intake and Output 02/28/18 03/01/18 03/01/18 22:59 06:59 14:59 Intake Total 152 / 152 98 / 98 Balance 152 / 152 98 / 98 Intake: IV 152 / 152 98 / 98 Heparin/D5W 25,000 U/250 mL 25, 152 / 152 98 / 98 000 unit In 250 ml @ 800 UNITS/ HR 8 mls/hr IV.CONT TITRATE PRN Rx#:[id number] Other: Date of Last Bowel Movement 02/27/18 - Imaging and Cardiology Imaging: Impressions Chest CTA 02/28/18 00:00 CONCLUSION: 1. Negative for central pulmonary emboli 2. Moderate emphysematous changes with abnormal soft tissue right paratracheal region suspicious for neoplastic process. 3. PET scan would be of benefit for evaluation. Assessment and Plan - Assessment (1) NSTEMI (non-ST elevated myocardial infarction) Code(s): I21.4 - Non-ST elevation (NSTEMI) myocardial infarction Status: Acute (2) HTN (hypertension) Code(s): I10 - Essential (primary) hypertension Status: Acute (3) CAD (coronary artery disease) Code(s): I25.10 - Atherosclerotic heart disease of [place] coronary artery without angina pectoris Status: Acute (4) Elevated troponin Code(s): R74.8 - Abnormal levels of other serum enzymes Status: Acute - Plan 1.) NSTEMI - denies chest pain, suspect trop elevation secondary to severe htn, rec continue aspirin, lipitor, atenolol, f/u echo
[2018-03-01] MEDS: hydroCHLOROthiazide 25 MG Tablet PO SCH (09:38)
[2018-03-01] MEDS: Senna/Docusate Sodium 8.6/50 MG Tablet PO SCH ×2 (09:38→20:24)
[2018-03-01] MEDS: Atenolol 50 MG Tablet PO SCH ×2 (09:39→20:24)
--- NOTE | 2018-03-01 15:31 | ECHRPT ---
Indication: CORONARY ATHEROSCLEROSIS CONCLUSIONS Normal left ventricular size. Mild concentric left ventricular hypertrophy. The left ventricular systolic function is low normal with an estimated ejection fraction in the rang e of 50- 55%. Mitral annular calcification is present. Aortic valve sclerosis is present. Trace aortic valve regurgitation. The estimated pulmonary arterial pressure is 26 mmHg. BP: / HR: Rhythm: Technical Quality: FINDINGS LEFT VENTRICLE Normal left ventricular size. Mild concentric left ventricular hypertrophy. The left ventricular systolic function is low normal with an estimated ejection fraction in the rang e of 50- 55%. RIGHT VENTRICLE Normal right ventricular size and systolic function. LEFT ATRIUM The left atrial size is normal. RIGHT ATRIUM The right atrial size is normal. ATRIAL SEPTUM Normal atrial septal thickness without atrial level shunting by limited color doppler interrogation. AORTA The aortic root and proximal ascending aorta are normal in size on limited imaging. MITRAL VALVE Mitral annular calcification is present. AORTIC VALVE Aortic valve sclerosis is present. Trace aortic valve regurgitation. TRICUSPID VALVE The estimated pulmonary arterial pressure is 26 mmHg. PULMONARY VALVE The pulmonary valve is not well visualized. VESSELS The inferior vena cava is normal in size. PERICARDIUM No pericardial effusion. Frantz Martinez MD, FACC (Electronically Signed) Final Date:01 March 2018 15:30
[2018-03-01] MEDS: MethylPREDNISolone Sod Succinate Inj 125 MG/2 ML Vial IV.PUSH SCH ×2 (16:31→20:25)
--- NOTE | 2018-03-01 17:51 | P.PN ---
Subjective Interval history: Nursing denies any acute changes overnight. Patient thinks his labored breathing is much better. Says his last episode of chest pain was yesterday no self-limited. Relayed chest pain incident to cardiology, will evaluate the patient tomorrow morning. Physical Exam Vital signs: Vital Signs 02/28/18 18:12 02/28/18 19:36 02/28/18 20:00 Temperature 98.0 F Pulse Rate 74 68 65 Respiratory Rate 20 20 Blood Pressure 144/68 H Pulse Oximetry 94 L 02/28/18 22:46 03/01/18 00:00 03/01/18 01:49 Temperature 97.7 F Pulse Rate 64 Respiratory Rate 17 Blood Pressure 198/86 H 146/72 H Pulse Oximetry 96 99 03/01/18 04:00 03/01/18 07:07 03/01/18 07:40 Temperature 98.1 F 98.6 F Pulse Rate 75 82 Respiratory Rate 22 20 Blood Pressure 198/88 H 123/74 Pulse Oximetry 100 99 98 03/01/18 16:18 Temperature Pulse Rate 62 Respiratory Rate 20 Blood Pressure 147/79 H Pulse Oximetry 100 Intake & Output 02/28/18 03/01/18 03/01/18 18:59 06:59 18:59 Intake Total 152 / 152 98 / 98 Balance 152 / 152 98 / 98 Intake: IV 152 / 152 98 / 98 Heparin/D5W 25,000 U/250 mL 25, 152 / 152 98 / 98 000 unit In 250 ml @ 800 UNITS/ HR 8 mls/hr IV.CONT TITRATE PRN Rx#:[id number] Other: Date of Last Bowel Movement 02/28/18 02/27/18 Narrative: Unlabored breathing On nasal cannula Minimal wheezing heard Heart sounds regular rate and rhythm Sitting up in chair, no acute distress Results - Labs CBC & Chem 7: 03/01/18 03:44 02/27/18 04:10 Laboratory Results - last 24 hr 02/28/18 03/01/18 03/01/18 22:24 03:44 03:44 WBC 20.2 H RBC 5.55 Hgb 13.8 Hct 42.5 MCV 76.6 L MCH 24.8 L MCHC 32.4 RDW 17.5 H Plt Count 181 MPV 7.7 APTT 41.2 H 44.1 H Assessment and Plan - Plan 82-year-old black male being admitted for shortness of breath, as well as chest pain a few days ago. Shortness of breath/COPD exacerbation -CTA negative for PE, pulmonology will follow the patient outpatient for paratracheal mass that was incidentally noted, may need a PET scan -Continue home oxygen -Duo nebs -CXR with no acute infiltrate -Continue steroids -Pro-air, Combivent Elevated troponin with subacute chest pain History of CAD -Troponins had topped off it 0.08, latest troponin is 0.07 -Continue aspirin, Plavix, Lipitor, atenolol Heparin drip, cardiology following, possible cath -We will make patient n.p.o. after midnight, echocardiogram appears unremarkable with EF to 50-55% Hypertension Continue home medications Heparin drip
--- NOTE | 2018-03-01 17:58 | P.PNPL ---
Subjective Interval history: 82 YOAA male with COPD, ca prostate, worsening sob Denies CP no Fever Occ cough CT chest paratracheal mass Physical Exam Vital signs: Vital Signs 02/28/18 18:12 02/28/18 19:36 02/28/18 20:00 Temperature 98.0 F Pulse Rate 74 68 65 Respiratory Rate 20 20 Blood Pressure 144/68 H Pulse Oximetry 94 L 02/28/18 22:46 03/01/18 00:00 03/01/18 01:49 Temperature 97.7 F Pulse Rate 64 Respiratory Rate 17 Blood Pressure 198/86 H 146/72 H Pulse Oximetry 96 99 03/01/18 04:00 03/01/18 07:07 03/01/18 07:40 Temperature 98.1 F 98.6 F Pulse Rate 75 82 Respiratory Rate 22 20 Blood Pressure 198/88 H 123/74 Pulse Oximetry 100 99 98 03/01/18 16:18 Temperature Pulse Rate 62 Respiratory Rate 20 Blood Pressure 147/79 H Pulse Oximetry 100 Intake & Output 02/28/18 03/01/18 03/01/18 18:59 06:59 18:59 Intake Total 152 / 152 98 / 98 Balance 152 / 152 98 / 98 Intake: IV 152 / 152 98 / 98 Heparin/D5W 25,000 U/250 mL 25, 152 / 152 98 / 98 000 unit In 250 ml @ 800 UNITS/ HR 8 mls/hr IV.CONT TITRATE PRN Rx#:[id number] Other: Date of Last Bowel Movement 02/28/18 02/27/18 GENERAL: Frail elderly AA male, mild sob SKIN: Warm and dry. HEAD: Normocephalic. EYES: No scleral icterus. No injection or drainage. NECK: Supple, trachea midline. No JVD or lymphadenopathy. CARDIOVASCULAR: Regular rate and rhythm without murmurs, gallops, or rubs. RESPIRATORY: Breath sounds equal bilaterally. No accessory muscle use. GASTROINTESTINAL: Abdomen soft, non-tender, nondistended. MUSCULOSKELETAL: No cyanosis, or edema. BACK: Nontender without obvious deformity. No CVA tenderness. Assessment and Plan - Plan IMPRESSION: 1. Chronic obstructive pulmonary disease with emphysema. 2. Right paratracheal mass concerning for malignancy. 3. Weight loss. 4. Coronary artery disease, status post myocardial infarction in the past. 5. History of cancer of the prostate. PLAN: Aerosol nebs Supplement 02 Will need PET scan and further evaluation of paratracheal mass Cardiac lawrence underway
[2018-03-01] MEDS: Montelukast 10 MG Tablet PO SCH (18:39)
[2018-03-01] MEDS ORDERED: Melatonin 5 MG Tablet PO ONE (19:46)
[2018-03-02 06:42] LABS: Hematocrit 43.2 % (39.0-51.0); Hemoglobin 13.7 gm/dL (13.0-17.0); Mean Corpuscular HGB Conc 31.7 % (32.0-36.0); Mean Corpuscular Hemoglobin 24.5 pg (27.0-34.0); Mean Corpuscular Volume 77.4 fL (80.0-100.0); Mean Platelet Volume 7.5 fL (7.0-11.0); Platelet Count 166 th/mm3 (150-450); Red Blood Count 5.58 mil/mm3 (4.50-5.90); Red Cell Distribution Width 17.2 % (11.6-17.2); White Blood Count 13.8 th/mm3 (4.0-11.0)
[2018-03-02] MEDS: MethylPREDNISolone Sod Succinate Inj 125 MG/2 ML Vial IV.PUSH SCH (08:42)
[2018-03-02] MEDS: Senna/Docusate Sodium 8.6/50 MG Tablet PO SCH ×2 (08:42→21:31)
[2018-03-02] MEDS: Atenolol 50 MG Tablet PO SCH ×2 (08:42→21:32)
[2018-03-02] MEDS: hydroCHLOROthiazide 25 MG Tablet PO SCH (08:42)
--- NOTE | 2018-03-02 10:54 | P.PNCA ---
Subjective Interval history: had mild chest pain yesterday, currently assymptomatic in nad Medications and Allergies Active Medications: Active Medications Acetaminophen (Tylenol) 650 mg PO Q4H PRN PRN Reason: Temp > 100.4 Al Hydroxide/Mg Hydroxide (Milk Of Magnesia Liq) 30 ml PO Q12H PRN PRN Reason: Mild Constipation Albuterol (Duoneb Neb (Prn)) 1 ampul NEB Q4HR NEB PRN PRN Reason: SOB/wheezing Last Admin: 03/02/18 03:17 Dose: 1 ampul Aspirin (Ecotrin) 81 mg PO DAILY [facility] Last Admin: 03/02/18 08:42 Dose: 81 mg Atenolol (Tenormin) 50 mg PO BID [facility] Last Admin: 03/02/18 08:42 Dose: 50 mg Atorvastatin Calcium (Lipitor) 40 mg PO HS [facility] Last Admin: 03/01/18 20:25 Dose: 40 mg Bisacodyl (Dulcolax Supp) 10 mg RECTAL DAILY PRN PRN Reason: SEVERE CONSITIPATION Clopidogrel Bisulfate (Plavix) 75 mg PO DAILY [facility] Last Admin: 03/02/18 08:42 Dose: 75 mg Enalaprilat (Vasotec Inj) 1.25 mg IV.PUSH Q4H PRN PRN Reason: SBP>160, DBP>90 Last Admin: 03/02/18 04:39 Dose: 1.25 mg Hydralazine HCl (Apresoline) 10 mg PO ONCE [facility] Hydrochlorothiazide (Hydrodiuril) 25 mg PO DAILY [facility] Last Admin: 03/02/18 08:42 Dose: 25 mg Heparin Sodium/Dextrose (Heparin/D5w 25,000 U/250 Ml) 25,000 unit in 250 mls @ 8 mls/hr IV.CONT TITRATE PRN; Protocol PRN Reason: Per Protocol Last Titration: 03/02/18 08:51 Dose: 800 units/hr, 8 mls/hr Lactulose (Lactulose Liq) 30 ml PO DAILY PRN PRN Reason: SEVERE CONSITIPATION Methylprednisolone Sodium Succinate (Solumedrol Inj) 60 mg IV.PUSH Q12HR [facility] Last Admin: 03/02/18 08:42 Dose: 60 mg Montelukast Sodium (Singulair) 10 mg PO QPM [facility] Last Admin: 03/01/18 18:39 Dose: 10 mg Ondansetron HCl (Zofran Inj) 4 mg IV.PUSH Q6H PRN PRN Reason: NAUSEA OR VOMITING Pantoprazole Sodium (Protonix) 40 mg PO DAILY [facility] Last Admin: 03/02/18 08:42 Dose: 40 mg Pt:Combivent (Respimat) 0 each INH QID [facility] Senna/Docusate Sodium (Isha-Colace) 1 tab PO BID [facility] Last Admin: 03/02/18 08:42 Dose: 1 tab Sennosides (Senokot) 17.2 mg PO Q12H PRN PRN Reason: Moderate Constipation Sodium Chloride (Ns Flush) 2 ml IV.FLUSH BID [facility] Last Admin: 03/02/18 08:38 Dose: Not Given Sodium Chloride (Ns Flush) 2 ml IV.FLUSH PRN PRN PRN Reason: FLUSH AFTER USING IV ACCESS Tamsulosin HCl (Flomax) 0.4 mg PO DAILY [facility] Last Admin: 03/02/18 08:42 Dose: 0.4 mg Allergies Allergy/AdvReac Type Severity Reaction Status Date / Time No Known Allergies Allergy Verified 02/26/18 22:40 Home Medications Medication Instructions Recorded Confirmed Type albuterol sulfate 2.5 mg INHALATION Q4-6H PRN 02/26/18 02/26/18 History albuterol sulfate [ProAir HFA] 2 puff INHALATION Q4HR 02/26/18 02/26/18 History amoxicillin-pot clavulanate 1 tab PO Q12H 02/26/18 02/26/18 History [Augmentin] aspirin [Aspirin Low Dose] 81 mg PO DAILY 02/26/18 02/26/18 History atenolol 50 mg PO BID 02/26/18 02/26/18 History clopidogrel 75 mg PO DAILY 02/26/18 02/26/18 History gabapentin 300 mg PO BID 02/26/18 02/26/18 History hydrochlorothiazide 25 mg PO DAILY 02/26/18 02/26/18 History ipratropium-albuterol [Combivent 1 puff INHALATION QID 02/26/18 02/26/18 History Respimat] montelukast 10 mg PO QPM 02/26/18 02/26/18 History nebivolol [Bystolic] 5 mg PO DAILY 02/26/18 02/26/18 History nitroglycerin 0.4 mg SUBLINGUAL Q5-15M PRN 02/26/18 02/26/18 History pantoprazole [Protonix] 40 mg PO DAILY 02/26/18 02/26/18 History prednisone 10 mg PO DAILY 02/26/18 02/26/18 History tamsulosin 0.4 mg PO DAILY 02/26/18 02/26/18 History umeclidinium-vilanterol [Anoro 1 inh INHALATION Q24H 02/26/18 02/26/18 History Ellipta] Physical Exam Vital signs: Vital Signs 03/01/18 16:18 03/01/18 20:00 03/02/18 00:00 Temperature 97.9 F 97.8 F Pulse Rate 62 68 67 Respiratory Rate 20 17 16 Blood Pressure 147/79 H 123/76 176/81 H Pulse Oximetry 100 98 95 03/02/18 03:18 03/02/18 04:00 03/02/18 08:00 Temperature 97.5 F L 98.1 F Pulse Rate 69 61 52 L Respiratory Rate 18 16 20 Blood Pressure 167/70 H 151/69 H Pulse Oximetry 99 97 Intake & Output 03/01/18 03/02/18 03/02/18 18:59 06:59 18:59 Other: Date of Last Bowel Movement 03/01/18 - Constitutional no acute distress - Routine HEENT Exam Head: Present: normocephalic - Routine Neck Exam Present: supple - Routine Respiratory Exam Present: CTA bilaterally - Routine Cardiovascular Exam Present: S1, S2 - Routine Abdominal Exam Present: soft - Routine Extremities Exam Comments: no jerome Results 03/02/18 06:11 02/27/18 04:10 Coagulation 02/28/18 02/28/18 03/01/18 Range/Units 15:02 22:24 03:44 APTT 34.8 H 41.2 H 44.1 H (23.4-31.7) sec 03/02/18 Range/Units 06:11 APTT 30.5 D (23.4-31.7) sec CBC 03/01/18 03/02/18 Range/Units 03:44 06:11 WBC 20.2 H 13.8 H (4.0-11.0) th/mm3 RBC 5.55 5.58 (4.50-5.90) mil/mm3 Hgb 13.8 13.7 (13.0-17.0) gm/dL Hct 42.5 43.2 (39.0-51.0) % Plt Count 181 166 (150-450) th/mm3 Intake and Output 03/01/18 03/02/18 03/02/18 22:59 06:59 14:59 Other: Date of Last Bowel Movement 03/01/18 - Imaging and Cardiology Imaging: Impressions Chest CTA 02/28/18 00:00 CONCLUSION: 1. Negative for central pulmonary emboli 2. Moderate emphysematous changes with abnormal soft tissue right paratracheal region suspicious for neoplastic process. 3. PET scan would be of benefit for evaluation. Assessment and Plan - Assessment (1) NSTEMI (non-ST elevated myocardial infarction) Code(s): I21.4 - Non-ST elevation (NSTEMI) myocardial infarction Status: Acute (2) HTN (hypertension) Code(s): I10 - Essential (primary) hypertension Status: Acute (3) CAD (coronary artery disease) Code(s): I25.10 - Atherosclerotic heart disease of [place] coronary artery without angina pectoris Status: Acute (4) Elevated troponin Code(s): R74.8 - Abnormal levels of other serum enzymes Status: Acute - Plan 1.) NSTEMI - mild chest pain 03/02/10, suspect trop elevation secondary to severe htn, rec continue aspirin, lipitor, atenolol, c 03/03/18, may need poa to consent, d/w Dr Romano
--- NOTE | 2018-03-02 13:25 | P.PN ---
Subjective Interval history: Patient denies any acute changes overnight. Patient self denies having any chest pain, denies any shortness of breath. Feels like his shortness of breath is back to baseline. I discussed with him thoroughly the medical recommendation for cardiac catheterization per cardiology, I discussed with him the risks and benefits including but not limited to morbidity and mortality up to the point of . Patient verbalizes understanding and wants to proceed with heart cath. Physical Exam Vital signs: Vital Signs 03/01/18 16:18 03/01/18 20:00 03/02/18 00:00 Temperature 97.9 F 97.8 F Pulse Rate 62 68 67 Respiratory Rate 20 17 16 Blood Pressure 147/79 H 123/76 176/81 H Pulse Oximetry 100 98 95 03/02/18 03:18 03/02/18 04:00 03/02/18 08:00 Temperature 97.5 F L 98.1 F Pulse Rate 69 61 52 L Respiratory Rate 18 16 20 Blood Pressure 167/70 H 151/69 H Pulse Oximetry 99 97 03/02/18 11:46 Temperature 98.2 F Pulse Rate 57 L Respiratory Rate 20 Blood Pressure 154/65 H Pulse Oximetry 97 Intake & Output 03/01/18 03/02/18 03/02/18 18:59 06:59 18:59 Other: Date of Last Bowel Movement 03/01/18 Narrative: Minimal wheezing heard, unlabored breathing Heart sounds regular rate and rhythm, no murmurs Lying in bed, awake, alert, no acute distress Results - Labs CBC & Chem 7: 03/02/18 06:11 02/27/18 04:10 Laboratory Results - last 24 hr 03/02/18 03/02/18 03/02/18 06:11 06:11 10:25 WBC 13.8 H RBC 5.58 Hgb 13.7 Hct 43.2 MCV 77.4 L MCH 24.5 L MCHC 31.7 L RDW 17.2 Plt Count 166 MPV 7.5 APTT 30.5 D Troponin I 0.10 H 03/02/18 12:05 WBC RBC Hgb Hct MCV MCH MCHC RDW Plt Count MPV APTT 43.6 H D Troponin I Assessment and Plan - Plan 82-year-old black male being admitted for shortness of breath, as well as chest pain a few days ago. Shortness of breath/COPD exacerbation -CTA negative for PE, pulmonology will follow the patient outpatient for paratracheal mass that was incidentally noted, may need a PET scan -Continue home oxygen -Duo nebs -CXR with no acute infiltrate -Transition to oral steroids today Elevated troponin with subacute chest pain History of CAD -Troponins had topped off it 0.08, latest troponin is 0.07 Echocardiogram appears unremarkable with EF 50-55% -Continue aspirin, Plavix, Lipitor, atenolol Heparin drip -Discussed with cards, n.p.o. after midnight for cath tomorrow Hypertension Continue home medications Heparin drip
--- NOTE | 2018-03-02 16:02 | P.PNPL ---
Subjective Interval history: 82 YOAA male with COPD, ca prostate, worsening sob Denies CP no Fever Occ cough CT chest paratracheal mass planning cardiac cath in AM Physical Exam Vital signs: Vital Signs 03/01/18 16:18 03/01/18 20:00 03/02/18 00:00 Temperature 97.9 F 97.8 F Pulse Rate 62 68 67 Respiratory Rate 20 17 16 Blood Pressure 147/79 H 123/76 176/81 H Pulse Oximetry 100 98 95 03/02/18 03:18 03/02/18 04:00 03/02/18 08:00 Temperature 97.5 F L 98.1 F Pulse Rate 69 61 52 L Respiratory Rate 18 16 20 Blood Pressure 167/70 H 151/69 H Pulse Oximetry 99 97 03/02/18 11:46 Temperature 98.2 F Pulse Rate 57 L Respiratory Rate 20 Blood Pressure 154/65 H Pulse Oximetry 97 Intake & Output 03/01/18 03/02/18 03/02/18 18:59 06:59 18:59 Intake Total 200 / 200 Balance 200 / 200 Intake: IV 200 / 200 Heparin/D5W 25,000 U/250 mL 25, 200 / 200 000 unit In 250 ml @ 800 UNITS/ HR 8 mls/hr IV.CONT TITRATE PRN Rx#:[id number] Other: Date of Last Bowel Movement 03/01/18 GENERAL: Frail elderly AA male, NAD SKIN: Warm and dry. HEAD: Normocephalic. EYES: No scleral icterus. No injection or drainage. NECK: Supple, trachea midline. No JVD or lymphadenopathy. CARDIOVASCULAR: Regular rate and rhythm without murmurs, gallops, or rubs. RESPIRATORY: Breath sounds equal bilaterally. No accessory muscle use. GASTROINTESTINAL: Abdomen soft, non-tender, nondistended. MUSCULOSKELETAL: No cyanosis, or edema. BACK: Nontender without obvious deformity. No CVA tenderness. Assessment and Plan - Plan IMPRESSION: 1. Chronic obstructive pulmonary disease with emphysema. 2. Right paratracheal mass concerning for malignancy. 3. Weight loss. 4. Coronary artery disease, status post myocardial infarction in the past. 5. History of cancer of the prostate. PLAN: Aerosol nebs Supplement 02 Will need PET scan and further evaluation of paratracheal mass Cardiac cath in AM
[2018-03-02] MEDS: Heparin Drip 25,000 UNIT/250 ML BAG IV.CONT PRN (17:23)
[2018-03-02] MEDS: Montelukast 10 MG Tablet PO SCH (17:23)
[2018-03-02] MEDS: predniSONE 20 MG Tablet PO SCH (21:31)
[2018-03-03 00:34] LABS: Hematocrit 44.9 % (39.0-51.0); Hemoglobin 14.1 gm/dL (13.0-17.0); Mean Corpuscular HGB Conc 31.4 % (32.0-36.0); Mean Corpuscular Hemoglobin 24.2 pg (27.0-34.0); Mean Corpuscular Volume 77.1 fL (80.0-100.0); Mean Platelet Volume 7.7 fL (7.0-11.0); Platelet Count 167 th/mm3 (150-450); Red Blood Count 5.83 mil/mm3 (4.50-5.90); Red Cell Distribution Width 16.9 % (11.6-17.2); White Blood Count 16.9 th/mm3 (4.0-11.0)
[2018-03-03 00:57] LABS: Calcium 8.5 mg/dL (8.5-10.1); Carbon Dioxide 35.7 meq/L (21.0-32.0); Magnesium 2.3 mg/dL (1.5-2.5); Potassium 3.5 meq/L (3.5-5.1)
[2018-03-03 01:01] LABS: Troponin I 0.11 ng/mL (0.02-0.05)
[2018-03-03] MEDS: predniSONE 20 MG Tablet PO SCH ×2 (09:14→23:28)
[2018-03-03] MEDS: Senna/Docusate Sodium 8.6/50 MG Tablet PO SCH ×2 (09:15→23:28)
[2018-03-03] MEDS: hydroCHLOROthiazide 25 MG Tablet PO SCH (09:15)
[2018-03-03] MEDS: Atenolol 50 MG Tablet PO SCH ×2 (09:15→23:29)
[2018-03-03] MEDS ORDERED: Heparin/NS PF Inj 1,000 ML ONE (15:54)
[2018-03-03] MEDS ORDERED: Lidocaine 1% Inj 50 ML Vial ONE (15:55)
--- NOTE | 2018-03-03 16:19 | P.PNPL ---
Subjective Interval history: 82 YOAA male with COPD, ca prostate, worsening sob Denies CP no Fever Occ cough CT chest paratracheal mass Awaiting cath, seen in DOCU Physical Exam Vital signs: Vital Signs 03/02/18 19:38 03/02/18 20:00 03/02/18 23:59 Temperature 98.0 F 98.1 F Pulse Rate 54 L 63 56 L Respiratory Rate 16 12 Blood Pressure 139/58 L 149/70 H 149/65 H Pulse Oximetry 97 98 03/03/18 03:56 03/03/18 08:00 03/03/18 11:54 Temperature 97.4 F L 97.6 F Pulse Rate 54 L 63 71 Respiratory Rate 20 18 18 Blood Pressure 177/69 H 177/74 H 175/81 H Pulse Oximetry 98 99 100 Intake & Output 03/02/18 03/03/18 03/03/18 18:59 06:59 18:59 Intake Total 231 / 231 Balance 231 / 231 Intake: IV 231 / 231 Heparin/D5W 25,000 U/250 mL 25, 231 / 231 000 unit In 250 ml @ 800 UNITS/ HR 8 mls/hr IV.CONT TITRATE PRN Rx#:[id number] Other: Date of Last Bowel Movement 03/02/18 03/02/18 GENERAL: Frail elderly AA male, NAD SKIN: Warm and dry. HEAD: Normocephalic. EYES: No scleral icterus. No injection or drainage. NECK: Supple, trachea midline. No JVD or lymphadenopathy. CARDIOVASCULAR: Regular rate and rhythm without murmurs, gallops, or rubs. RESPIRATORY: Breath sounds equal bilaterally. No accessory muscle use. GASTROINTESTINAL: Abdomen soft, non-tender, nondistended. MUSCULOSKELETAL: No cyanosis, or edema. BACK: Nontender without obvious deformity. No CVA tenderness. Assessment and Plan - Plan IMPRESSION: 1. Chronic obstructive pulmonary disease with emphysema. 2. Right paratracheal mass concerning for malignancy. 3. Weight loss. 4. Coronary artery disease, status post myocardial infarction in the past. 5. History of cancer of the prostate. PLAN: Aerosol nebs Supplement 02 Will need PET scan and further evaluation of paratracheal mass Cardiac cath today
[2018-03-03] MEDS ORDERED: Iohexol 350 MG/ML 50 ML Vial (for Cath Lab) IVCONTRAST ONE (16:40)
--- NOTE | 2018-03-03 16:57 | CATHPROC ---
[employer] HIS Report Study Information Study Number Admission Scheduled Start Study Start [id number] Mar 01 2018 12:11PM 03/03/2018 Mar 03 2018 12:20PM [place] [facility] Cardiac Pacer/ICD Admit Source Facility Department Other [facility] - Track Laborer Physician and Clinical Staff Initial Casper Fernández Contamination Consultant Katelyn Dillon,RN Recorder Laura Canales,UNLOADER TECH2 RN cathlab, cathlab Scrub Geoffrey Mack,RT(R) Procedures Performed Procedure Location (Site) Vessel Name Coronary Angiograms LCA Left Coronary Coronary Angiograms RCA Right Coronary L Heart Cath LV Gram-hand inj. LV LV Ventricle Equipment Time Autism Tutor Description Size Mfg Part Number Used/Scraped TRANSDUCER, TRUWAVE [id number] 12:21 MURPHY DUNLAP * Used W/STOCKCOCK *[id number] *[id number] *[id number] 12:21 [employer] BLANKET,WARM AIR CCL * Used *[id number] 12:21 [employer] PACK, CCL CUSTOM * Used *[id number] 12:21 Ring[employer] PACER PEN, SKIN DUAL W/ RULER * Used *[id number] 12:21 UnboundID WIRE, 3MMJ .035 180CM 180CM Used *[id number] 12:21 NAMIC MANIFOLD, 4 PORT * Used *[id number] 12:21 NYCOMED OMNIPAQUE, 350 MG, 150ML 150ML [id number] Used [id number] 12:21 TERUMO MEDICAL SHEATH, FR4 TERUMO (10CM) FR 4 Used *[id number] History: Current Medications Medication Dosage/Unit Route Frequency Last Date/Time Taken LIPITOR History: Allergies Allergy Reaction No Known Allergies History: Risk Factors Family History of Hypertension Dyslipidemia Previous ID Previous Heart Failure Premature CAD Yes Yes No Yes No Prior Valve Prior PCI Prior CABG Surgery No No No Cerebrovascular Peripheral Artery Chronic Lung On Dialysis Diabetes Disease Disease Disease No No No Yes No History: Stress Tests Stress or Imaging Studies Performed No History: Other Current Smoker Method Quit No Cigarettes 15 Years Ago Comment 1/4 PACK PER DAY FOR 41 YEARS Labs Hgb (g/dl) Hct (%) WBC (l/cumm) Platelets (thousands) 11.60-17.00 35.00-51.00 4.00-11.00 150.00-450.00 14.1 44.9 16.9 167 Glucose (mg/dl) BUN (mg/dl) Creatinine (mg/dl) BUN:Creatinine (1:x) 74.00-106.00 7.00-18.00 0.50-1.30 10.00-20.00 128 32 1.1 29.1 Na (meq/l) K (meq/l) 136.00-145.00 3.50-5.10 143 3.5 INR (PTT:PT) 0.90-1.10 1.1 Medication Medication Total Dose (Bolus/Oral) Medication Total Dosage/Unit 1% XYLOCAINE 20 mL NITRO OINTMENT 2 inches Medications (Bolus/Oral) Medication Time Given Dosage/Unit Administered By Reason 1% XYLOCAINE 03/03/2018 4:26:09 PM 20 mL Casper Medina 20 mL 1% XYLOCAINE given in lab by Casper Medina in Right Groin via Subcutaneous. Ordered by Casper Narayan. NITRO OINTMENT 03/03/2018 4:33:19 PM 2 inches Katelyn Dillon 2 inches NITRO OINTMENT given in lab by Katelyn Dillon, REID via Peripheral IV. Ordered by Emilio Medina rthualex. Medication (Drip) Medication Time Given Dosage/Unit Concentration/Unit Diluent (ml) Solution IV Solutions 03/03/2018 3:57:36 PM 0 mL (IV) 500 NaCl .9 IV Solutions given in lab by Katelyn Dillon, REID in Left Forearm via Peripheral IV. Pump/Drip Flow = 20 ml/hr using NaCl .9. Ordered by Casper Medina. Initial Case Assessment Cardiovascular HR NIBP 62 204/98 Edema Present Skin color Skin None Normal Warm Dry Circulatory - Right Pulses Dorsalis Pedis Femoral d 1 Scale (0,1,2,3,4,d) Circulatory - Left Pulses Dorsalis Pedis Femoral d 1 Scale (0,1,2,3,4,d) Neurological State Oriented to time-place- Alert Moves all extremities person Respiration - General Respiration Rate SpO2 (%) O2 (lpm) (B/min) 13 100 3 Final Case Assessment Cardiovascular HR NIBP 65 187/87 Edema Present Skin color Skin None Normal Warm Dry Circulatory - Right Pulses Dorsalis Pedis Femoral d 1 Scale (0,1,2,3,4,d) Circulatory - Left Pulses Dorsalis Pedis Femoral d 1 Scale (0,1,2,3,4,d) Neurological State Oriented to time-place- Alert Moves all extremities person Respiration - General Respiration Rate SpO2 (%) O2 (lpm) (B/min) 15 100 3 Chronological Log Time Study Chronological Log 15:43:14 Patient arrived via Bed. Vitals capture started with the following parameters, Patient=Adult, Interval=5 min, Initial Pr djwnej=957 mmHg, 15:48:54 Deflation Rate=5 mmHg, Cuff placed on Left Arm 15:50:15 HR=62 bpm, SRYP=116/98 mmhg, RmK5=415.0 %, Resp=13 B/min, Pain=0, Crow=10, Echevarria=1 15:50:46 Reference ECG taken 15:51:22 Patient Name, D.O.B, / Armband Verified By R.N. 15:51:24 Consent signed by the physician and the patient and verified by the Track Laborer staff. 15:51:26 Patient has been NPO for More than 6Hrs. 15:51:28 NO Skin Breakdown- 15:54:44 HR=64 bpm, OYMT=000/82 mmhg, OrC8=569.0 %, Resp=18 B/min, Pain=0, Crow=10, Echevarria=1 15:57:32 [place] Prominences Protected 15:57:35 A # 20 IV was noted in the Forearm (left). Grade = 0 IV Solutions given in lab by Katelyn Dillon RN in Left Forearm via Peripheral IV. Pump/Drip F low = 20 ml/hr using 15:57:36 NaCl .9. Ordered by Casper Medina. 15:57:37 History and physical on the chart or being dictated. Assessment: Initial Case, HR=62 BPM, BOTR=819/98 mmhg, Edema=None, Color=Normal, Skin = Warm, D ry Right Pulses: Timi Ped=d, Femoral=1 15:59:23 Left Pulses: Timi Ped=d, Femoral=1 Neurological: State=Alert, Ox3, CALVO Respiration: Resp=13 B/min, FrC8=602 %, O2=3 lpm 15:59:27 Bilateral groins prepped with 2% chlorhexidine, and draped after a 3 minute waiting time. 16:00:11 HR=66 bpm, XDWZ=148/92 mmhg, HnB8=139.0 %, Resp=14 B/min, Pain=0, Crow=10, Echevarria=1 16:00:53 Pressure channel 1 zeroed. 16:04:36 HR=60 bpm, YECD=222/80 mmhg, LeY1=953.0 %, Resp=16 B/min, Pain=0, Crow=10, Echevarria=1 16:10:13 HR=65 bpm, KCII=287/86 mmhg, JxR5=364.0 %, Resp=19 B/min, Pain=0, Crow=10, Echevarria=1 16:14:40 HR=57 bpm, QRZB=382/72 mmhg, OvA0=763.0 %, Resp=14 B/min, Pain=0, Crow=10, Echevarria=1 16:19:37 HR=62 bpm, ELFC=348/81 mmhg, OhV2=023.0 %, Resp=13 B/min, Pain=0, Crow=10, Echevarria=1 16:24:30 HR=65 bpm, AKSR=195/95 mmhg, UcZ2=674.0 %, Resp=13 B/min, Pain=0, Crow=10, Echevarria=1 Time Out. Correct patient, correct procedure, correct physician, labs, allergies, and equipment verified with woods laborer 16:25:44 team present. Fire risk assesment completed (see hard stop sheet for coding). Time Out Conc urred by MD and individual staff in procedure. 16:25:56 Case Start 20 mL 1% XYLOCAINE given in lab by Casper Medina in Right Groin via Subcutaneous. Ordered by Carol, 16:26:09 Casper. 16:27:59 Access site was Right Femoral Artery. 16:28:05 A SHEATH, FR4 TERUMO (10CM) FR 4 was advanced into the Fem Art (right) using the Modified S eldinger technique. A JR 4.0 INFINITI CATHETER FR 4 was advanced over a wire. OMNIPAQUE, 350 MG, 150ML 150ML was us ed for 16:28:11 injections. Recorded Pressure: LV, HR=61, Condition=Condition 1 16:29:29 (Left Ventricle) LV 166/13/13 16:29:39 The LV was manually injected with 10 cc's and visualized. OMNIPAQUE, 350 MG, 150ML 150ML us ed. Recorded Pressure: LV, Ao, HR=71, Condition=Condition 1 16:29:55 (Left Ventricle) LV 178/12/12, (Aorta) Ao 176/33/97 Recorded Pressure: Ao, HR=62, Condition=Condition 1 16:30:05 (Aorta) Ao 182/59/103 16:30:12 HR=68 bpm, VTRR=648/79 mmhg, TeB7=670.0 %, Resp=15 B/min, Pain=0, Crow=10, Echevarria=1 16:30:32 The RCA was injected and visualized at various angles. OMNIPAQUE, 350 MG, 150ML 150ML used . 16:30:48 Catheter was removed A JL 4.0 INFINITI CATHETER FR 4 was advanced over a wire. OMNIPAQUE, 350 MG, 150ML 150ML was us ed for 16:30:50 injections. 16:31:54 The LCA was injected and visualized at various angles. OMNIPAQUE, 350 MG, 150ML 150ML used . 16:33:19 2 inches NITRO OINTMENT given in lab by Katelyn Dillon RN via Peripheral IV. Ordered by Casper Méndez. 16:33:50 Case End (Physician broke scrub) 16:34:40 Catheter(s) removed without difficulty 16:35:23 HR=59 bpm, YBTT=183/89 mmhg, JhX3=659.0 %, Resp=18 B/min, Pain=0, Crow=10, Echevarria=1 16:37:00 Sheath removed; pressure applied to access site. 16:40:26 HR=62 bpm, SEJW=870/86 mmhg, DtB3=361.0 %, Resp=18 B/min, Pain=0, Crow=10, Echevarria=1 16:44:44 HR=65 bpm, ACRE=728/87 mmhg, RiL5=242.0 %, Resp=15 B/min, Pain=0, Crow=10, Echevarria=1 16:50:03 Sterile dressing applied to site 16:50:05 No case complications noted. 16:50:07 Cine recording checked. 16:50:11 Bedside Report will be given. 16:50:13 A Left Heart Cath was performed. Assessment: Final Case, HR=65 BPM, PWNR=262/87 mmhg, Edema=None, Color=Normal, Skin = Warm, Dr y Right Pulses: Timi Ped=d, Femoral=1 16:50:19 Left Pulses: Timi Ped=d, Femoral=1 Neurological: State=Alert, Ox3, CALVO Respiration: Resp=15 B/min, RiI3=882 %, O2=3 lpm 16:51:15 Vitals capture stopped. 16:53:34 Patient moved to [facility] End Study - Contrast Media Used In Study Contrast Total Opened (mL) Total Used (mL) Total Wasted (mL) Omnipaque 350 25 25 0 End Study - Maximum Contrast Load Max Contrast Load (mL) 288.6 End Study - Radiation Exposure Fluoro Time (minutes) 0.9 End Study - Patient Disposition Complications Transferred To Telemetry Bed
--- NOTE | 2018-03-03 18:13 | P.PN ---
Subjective Interval history: Nursing denies any acute changes overnight. Patient himself denies any chest pain or shortness of breath. [facility]. Physical Exam Vital signs: Vital Signs 03/02/18 19:38 03/02/18 20:00 03/02/18 23:59 Temperature 98.0 F 98.1 F Pulse Rate 54 L 63 56 L Respiratory Rate 16 12 Blood Pressure 139/58 L 149/70 H 149/65 H Pulse Oximetry 97 98 03/03/18 03:56 03/03/18 08:00 03/03/18 11:54 Temperature 97.4 F L 97.6 F Pulse Rate 54 L 63 71 Respiratory Rate 20 18 18 Blood Pressure 177/69 H 177/74 H 175/81 H Pulse Oximetry 98 99 100 Intake & Output 03/02/18 03/03/18 03/03/18 18:59 06:59 18:59 Intake Total 231 / 231 Balance 231 / 231 Intake: IV 231 / 231 Heparin/D5W 25,000 U/250 mL 25, 231 / 231 000 unit In 250 ml @ 800 UNITS/ HR 8 mls/hr IV.CONT TITRATE PRN Rx#:[id number] Other: Date of Last Bowel Movement 03/02/18 03/02/18 Narrative: Heart sounds regular rate and rhythm No lower extremity edema Clear lungs bilaterally, unlabored breathing Results - Labs CBC & Chem 7: 03/03/18 00:23 03/03/18 00:23 Laboratory Results - last 24 hr 03/02/18 03/03/18 03/03/18 19:32 00:23 00:23 WBC 16.9 H RBC 5.83 Hgb 14.1 Hct 44.9 MCV 77.1 L MCH 24.2 L MCHC 31.4 L RDW 16.9 Plt Count 167 MPV 7.7 APTT 57.0 H D 77.7 H D Sodium Potassium Chloride Carbon Dioxide Anion Gap BUN Creatinine Estimated GFR Random Glucose Calcium Magnesium Troponin I B-Natriuretic Peptide 03/03/18 03/03/18 03/03/18 00:23 00:23 10:06 WBC RBC Hgb Hct MCV MCH MCHC RDW Plt Count MPV APTT 51.3 H D Sodium 143 Potassium 3.5 Chloride 101 Carbon Dioxide 35.7 H Anion Gap 6 BUN 32 H Creatinine 1.18 Estimated GFR 72 L Random Glucose 128 H Calcium 8.5 Magnesium 2.3 Troponin I 0.11 H B-Natriuretic Peptide 137 H Assessment and Plan - Plan 82-year-old black male being admitted for shortness of breath, as well as chest pain a few days ago. Shortness of breath/COPD exacerbation -CTA negative for PE, pulmonology will follow the patient outpatient for paratracheal mass that was incidentally noted, may need a PET scan -Continue home oxygen -Duo nebs -CXR with no acute infiltrate -Oral steroids Elevated troponin with subacute chest pain History of CAD -Troponins had topped off it 0.08, latest troponin is 0.07 Echocardiogram appears unremarkable with EF 50-55% -Continue aspirin, Plavix, Lipitor, atenolol Heparin drip -Cath in just a few hours anticipated Hypertension Continue home medications Heparin drip
--- NOTE | 2018-03-03 20:53 | MR ---
cc: Casper Medina MD DATE: 03/03/2018 INDICATIONS FOR PROCEDURE: Coronary artery disease, non-STEMI cardiovascular cause for angina and chest pain at rest. Multiple cardiac risk factors. The patient was brought to the cardiac catheterization laboratory, prepped and draped in the usual sterile fashion. 10 mL of 1% lidocaine was used to locate the site in the common femoral artery. A 4-[place] sheath placed in the right common femoral artery. 4-[place] JR4 and JL4 catheters were used to perform left and right coronary angiography, left ventriculography. FINDINGS: LV pressure is 170/3 - EF 60%. Right coronary artery is dominant. There is [id number] disease in the proximal segment up to 30-40% angiographically. The right PDA in the mid to distal segment has a possible 60% stenosis. It is difficult to tell whether some of the stenosis is normal vessel tapering versus eccentric plaque. Again, I would estimate the maximal stenosis relative to the proximal segment of 50-60%. Reference vessel diameter in this segment proximally is 2.5 mm, distally 2.0 mm and there is a bifurcation with a small 1 mm branch at the lesion site. Left main coronary has no significant disease angiographically. The left circumflex vessel has an ostial 20% stenosis. There is mild to moderate diffuse disease in the mid to distal AV groove left circumflex up to 30-40% angiographically. The first obtuse marginal vessel is a small 1 mm vessel. Mild to moderate diffuse disease in the ostial and proximal segment up to 30-40% angiographically. The second obtuse marginal vessel is a small 1.5-2 mm reference vessel diameter vessel. No significant focal stenosis. LAD is transapical, has an ostial proximal 20-30% stenosis. Mid segment has mild diffuse disease up to 20% angiographically and distal segment has a smooth tubular 30-40% stenosis, LAD is transapical. First diagonal artery is a small to medium size vessel, reference vessel diameter 2.0-2.25 mm, has an ostial has proximal bifurcation, more medial branch is 2.0 mm vessel with proximal mid 60-70% stenosis. CONCLUSION: 1. At least moderate 3-vessel coronary artery disease in a right dominant system. Suspect the etiology of the patient's troponin elevation is due to increased demand in the setting of moderate coronary artery disease. I suspect with optimal blood pressure control and optimal medical therapy, the patient should be chest pain free with normal activities of daily living. If he does develop chest pain on optimal medical therapy with optimal blood pressure control, could consider stenting the mid to distal right PDA or the proximal first diagonal artery medial branch. Note the mid to distal right PDA would require possibly a short guide as this is a large right coronary artery and the lesion is very distal, I would be also concerned about stenting the diagonal vessel. It is a relatively small reference vessel diameter 2.25 mm. Again, I would try to optimize medical therapy and only consider PCI as a last option if he is not responding well to the optimal medical therapy. 2. Recommend aspirin, beta lino, SUSHILA inhibitor, statin as clinically and hemodynamically tolerated. MD LEONEL Kim/sj , 04:41 PM , 04:52 PM
[2018-03-03] MEDS: Montelukast 10 MG Tablet PO SCH (23:27)
[2018-03-04] MEDS: Lisinopril 5 MG Tablet PO SCH (08:57)
[2018-03-04] MEDS: predniSONE 20 MG Tablet PO SCH ×2 (08:57→22:10)
[2018-03-04] MEDS: Atenolol 50 MG Tablet PO SCH ×2 (08:58→22:10)
[2018-03-04] MEDS: hydroCHLOROthiazide 25 MG Tablet PO SCH (08:58)
[2018-03-04] MEDS: Senna/Docusate Sodium 8.6/50 MG Tablet PO SCH ×2 (09:49→22:10)
--- NOTE | 2018-03-04 13:18 | P.PN ---
Subjective Interval history: telemetry - SR with some pause ? drop beat per patient baseline 02 dependent and ambulates with a walker no fever minimal cough mild shortness of breath Physical Exam Vital signs: Vital Signs 03/03/18 16:00 03/03/18 18:21 03/03/18 20:00 Temperature 98.0 F Pulse Rate 66 64 73 Respiratory Rate 20 16 Blood Pressure 154/67 H 186/94 H Pulse Oximetry 96 93 L 03/03/18 20:50 03/04/18 00:00 03/04/18 04:00 Temperature Pulse Rate 55 L 60 Respiratory Rate 18 16 Blood Pressure 155/65 H Pulse Oximetry 95 97 98 03/04/18 08:00 03/04/18 09:00 03/04/18 12:00 Temperature Pulse Rate 55 L 58 L 68 Respiratory Rate 16 18 Blood Pressure 138/79 147/80 H Pulse Oximetry 97 97 Intake & Output 03/03/18 03/04/18 03/04/18 18:59 06:59 18:59 Intake Total 480 / 480 Output Total 1050 / 1050 Balance -570 / -570 Weight 62.5 kg Intake: Oral 480 / 480 Output: Urine 1050 / 1050 Other: Date of Last Bowel Movement 03/03/18 03/04/18 # Bowel Movements 1 Narrative: awake and alert few expiratory wheezes Heart sounds regular rate and rhythm No lower extremity edema moves all extremities spontaenously Results - Labs CBC & Chem 7: 03/03/18 00:23 03/03/18 00:23 Assessment and Plan - Plan 82-year-old black male being admitted for shortness of breath, as well as chest pain a few days ago. Shortness of breath/COPD exacerbation -CTA negative for PE, pulmonology will follow the patient outpatient for paratracheal mass that was incidentally noted, may need a PET scan -Continue home oxygen -Duo nebs -CXR with no acute infiltrate -Oral steroids Elevated troponin with subacute chest pain History of CAD -Troponins had topped off it 0.08, latest troponin is 0.07 Echocardiogram appears unremarkable with EF 50-55% -Continue aspirin, Plavix, Lipitor, atenolol Hypertension Continue home medications Heparin Sq for DVT prophylaxis
--- NOTE | 2018-03-04 14:30 | P.PNCA ---
Subjective Interval history: alert in nad Medications and Allergies Active Medications: Active Medications Acetaminophen (Tylenol) 650 mg PO Q4H PRN PRN Reason: Temp > 100.4 Al Hydroxide/Mg Hydroxide (Milk Of Magnesia Liq) 30 ml PO Q12H PRN PRN Reason: Mild Constipation Albuterol (Duoneb Neb (Prn)) 1 ampul NEB Q4HR NEB PRN PRN Reason: SOB/wheezing Last Admin: 03/02/18 03:17 Dose: 1 ampul Albuterol (Duoneb Neb ([facility])) 1 ampul NEB Q4HR NEB [facility] Stop: 03/05/18 00:01 Aspirin (Ecotrin) 81 mg PO DAILY [facility] Last Admin: 03/04/18 08:57 Dose: 81 mg Atenolol (Tenormin) 50 mg PO BID [facility] Last Admin: 03/04/18 08:58 Dose: 50 mg Atorvastatin Calcium (Lipitor) 40 mg PO HS [facility] Last Admin: 03/03/18 23:28 Dose: 40 mg Bisacodyl (Dulcolax Supp) 10 mg RECTAL DAILY PRN PRN Reason: SEVERE CONSITIPATION Clopidogrel Bisulfate (Plavix) 75 mg PO DAILY [facility] Last Admin: 03/04/18 08:57 Dose: 75 mg Enalaprilat (Vasotec Inj) 1.25 mg IV.PUSH Q4H PRN PRN Reason: SBP>160, DBP>90 Last Admin: 03/02/18 04:39 Dose: 1.25 mg Enoxaparin Sodium (Lovenox Inj) 30 mg SQ DAILY [facility] Hydralazine HCl (Apresoline) 10 mg PO ONCE [facility] Hydrochlorothiazide (Hydrodiuril) 25 mg PO DAILY [facility] Last Admin: 03/04/18 08:58 Dose: 25 mg Lactulose (Lactulose Liq) 30 ml PO DAILY PRN PRN Reason: SEVERE CONSITIPATION Lisinopril (Prinivil) 5 mg PO DAILY [facility] Last Admin: 03/04/18 08:57 Dose: 5 mg Montelukast Sodium (Singulair) 10 mg PO QPM [facility] Last Admin: 03/03/18 23:27 Dose: 10 mg Ondansetron HCl (Zofran Inj) 4 mg IV.PUSH Q6H PRN PRN Reason: NAUSEA OR VOMITING Pantoprazole Sodium (Protonix) 40 mg PO DAILY [facility] Last Admin: 03/04/18 08:57 Dose: 40 mg Pt:Combivent (Respimat) 0 each INH QID [facility] Prednisone (Deltasone) 20 mg PO BID [facility] Last Admin: 03/04/18 08:57 Dose: 20 mg Senna/Docusate Sodium (Isha-Colace) 1 tab PO BID [facility] Last Admin: 03/04/18 09:49 Dose: Not Given Sennosides (Senokot) 17.2 mg PO Q12H PRN PRN Reason: Moderate Constipation Sodium Chloride (Ns Flush) 2 ml IV.FLUSH PRN PRN PRN Reason: FLUSH AFTER USING IV ACCESS Sodium Chloride (Ns Flush) 2 ml IV.FLUSH BID [facility] Last Admin: 03/04/18 08:58 Dose: 2 ml Tamsulosin HCl (Flomax) 0.4 mg PO DAILY [facility] Last Admin: 03/04/18 08:57 Dose: 0.4 mg Allergies Allergy/AdvReac Type Severity Reaction Status Date / Time No Known Allergies Allergy Verified 02/26/18 22:40 Home Medications Medication Instructions Recorded Confirmed Type albuterol sulfate 2.5 mg INHALATION Q4-6H PRN 02/26/18 02/26/18 History albuterol sulfate [ProAir HFA] 2 puff INHALATION Q4HR 02/26/18 02/26/18 History amoxicillin-pot clavulanate 1 tab PO Q12H 02/26/18 02/26/18 History [Augmentin] aspirin [Aspirin Low Dose] 81 mg PO DAILY 02/26/18 02/26/18 History atenolol 50 mg PO BID 02/26/18 02/26/18 History clopidogrel 75 mg PO DAILY 02/26/18 02/26/18 History gabapentin 300 mg PO BID 02/26/18 02/26/18 History hydrochlorothiazide 25 mg PO DAILY 02/26/18 02/26/18 History ipratropium-albuterol [Combivent 1 puff INHALATION QID 02/26/18 02/26/18 History Respimat] montelukast 10 mg PO QPM 02/26/18 02/26/18 History nebivolol [Bystolic] 5 mg PO DAILY 02/26/18 02/26/18 History nitroglycerin 0.4 mg SUBLINGUAL Q5-15M PRN 02/26/18 02/26/18 History pantoprazole [Protonix] 40 mg PO DAILY 02/26/18 02/26/18 History prednisone 10 mg PO DAILY 02/26/18 02/26/18 History tamsulosin 0.4 mg PO DAILY 02/26/18 02/26/18 History umeclidinium-vilanterol [Anoro 1 inh INHALATION Q24H 02/26/18 02/26/18 History Ellipta] Physical Exam Vital signs: Vital Signs 03/03/18 16:00 03/03/18 18:21 03/03/18 20:00 Temperature 98.0 F Pulse Rate 66 64 73 Respiratory Rate 20 16 Blood Pressure 154/67 H 186/94 H Pulse Oximetry 96 93 L 03/03/18 20:50 03/04/18 00:00 03/04/18 04:00 Temperature Pulse Rate 55 L 60 Respiratory Rate 18 16 Blood Pressure 155/65 H Pulse Oximetry 95 97 98 03/04/18 08:00 03/04/18 09:00 03/04/18 12:00 Temperature Pulse Rate 55 L 58 L 68 Respiratory Rate 16 18 Blood Pressure 138/79 147/80 H Pulse Oximetry 97 97 Intake & Output 03/03/18 03/04/18 03/04/18 18:59 06:59 18:59 Intake Total 480 / 480 Output Total 1050 / 1050 Balance -570 / -570 Weight 62.5 kg Intake: Oral 480 / 480 Output: Urine 1050 / 1050 Other: Date of Last Bowel Movement 03/03/18 03/04/18 # Bowel Movements 1 - Constitutional no acute distress - Routine HEENT Exam Head: Present: normocephalic - Routine Neck Exam Present: supple - Routine Respiratory Exam Present: CTA bilaterally - Routine Cardiovascular Exam Present: S1, S2 - Routine Abdominal Exam Present: soft - Routine Extremities Exam Comments: no jerome Results 03/03/18 00:23 03/03/18 00:23 Cardiac Enzymes 03/03/18 03/03/18 Range/Units 00:23 00:23 Troponin I 0.11 H (0.02-0.05) ng/mL B-Natriuretic Peptide 137 H (0-100) pg/mL Coagulation 03/02/18 03/03/18 03/03/18 Range/Units 19:32 00:23 00:23 APTT 57.0 H D 77.7 H D (23.4-31.7) sec B-Natriuretic Peptide 137 H (0-100) pg/mL 03/03/18 Range/Units 10:06 APTT 51.3 H D (23.4-31.7) sec B-Natriuretic Peptide (0-100) pg/mL CBC 03/03/18 Range/Units 00:23 WBC 16.9 H (4.0-11.0) th/mm3 RBC 5.83 (4.50-5.90) mil/mm3 Hgb 14.1 (13.0-17.0) gm/dL Hct 44.9 (39.0-51.0) % Plt Count 167 (150-450) th/mm3 Comprehensive Metabolic Panel 03/03/18 Range/Units 00:23 Sodium 143 (136-145) meq/L Potassium 3.5 (3.5-5.1) meq/L Chloride 101 (98-107) meq/L Carbon Dioxide 35.7 H (21.0-32.0) meq/L BUN 32 H (7-18) mg/dL Creatinine 1.18 (0.60-1.30) mg/dL Calcium 8.5 (8.5-10.1) mg/dL Intake and Output 03/03/18 03/04/18 03/04/18 22:59 06:59 14:59 Intake Total 480 / 480 Output Total 1050 / 1050 Balance -570 / -570 Intake: Oral 480 / 480 Output: Urine 1050 / 1050 Other: Date of Last Bowel Movement 03/03/18 03/04/18 # Bowel Movements 1 Weight 62.5 kg Assessment and Plan - Assessment (1) NSTEMI (non-ST elevated myocardial infarction) Code(s): I21.4 - Non-ST elevation (NSTEMI) myocardial infarction Status: Acute (2) HTN (hypertension) Code(s): I10 - Essential (primary) hypertension Status: Acute (3) CAD (coronary artery disease) Code(s): I25.10 - Atherosclerotic heart disease of [place] coronary artery without angina pectoris Status: Acute (4) Elevated troponin Code(s): R74.8 - Abnormal levels of other serum enzymes Status: Acute - Plan 1.) NSTEMI - moderate 3 vessel cad, rec continue aspirin, plavix, lipitor, atenolol, lisinopril
[2018-03-04] MEDS: Enoxaparin Inj 30 MG/0.3 ML Syringe SQ SCH (14:57)
[2018-03-04] MEDS: Montelukast 10 MG Tablet PO SCH (18:29)
--- NOTE | 2018-03-04 18:37 | P.PNPL ---
Subjective Interval history: 82 YOAA male with COPD, ca prostate, worsening sob Denies CP no Fever Occ cough CT chest paratracheal mass Had cardiac cath, multivessel mild to mod CAD Physical Exam Vital signs: Vital Signs 03/03/18 20:00 03/03/18 20:50 03/04/18 00:00 Pulse Rate 73 55 L Respiratory Rate 16 18 Blood Pressure 186/94 H 155/65 H Pulse Oximetry 93 L 95 97 03/04/18 04:00 03/04/18 08:00 03/04/18 09:00 Pulse Rate 60 55 L 58 L Respiratory Rate 16 16 Blood Pressure 138/79 Pulse Oximetry 98 97 03/04/18 12:00 03/04/18 15:50 Pulse Rate 68 64 Respiratory Rate 18 18 Blood Pressure 147/80 H Pulse Oximetry 97 Intake & Output 03/03/18 03/04/18 03/04/18 18:59 06:59 18:59 Intake Total 480 / 480 Output Total 1050 / 1050 Balance -570 / -570 Weight 62.5 kg Intake: Oral 480 / 480 Output: Urine 1050 / 1050 Other: Date of Last Bowel Movement 03/03/18 03/04/18 # Bowel Movements 1 GENERAL: Elderly AA male, NAD SKIN: Warm and dry. HEAD: Normocephalic. EYES: No scleral icterus. No injection or drainage. NECK: Supple, trachea midline. No JVD or lymphadenopathy. CARDIOVASCULAR: Regular rate and rhythm without murmurs, gallops, or rubs. RESPIRATORY: Breath sounds equal bilaterally. No accessory muscle use. GASTROINTESTINAL: Abdomen soft, non-tender, nondistended. MUSCULOSKELETAL: No cyanosis, or edema. BACK: Nontender without obvious deformity. No CVA tenderness. Assessment and Plan - Plan IMPRESSION: 1. Chronic obstructive pulmonary disease with emphysema. 2. Right paratracheal mass concerning for malignancy. 3. Weight loss. 4. Coronary artery disease, status post myocardial infarction in the past. 5. History of cancer of the prostate. PLAN: Aerosol nebs Supplement 02 Will need PET scan and further evaluation of paratracheal mass Wean 02
[2018-03-05] MEDS: Atenolol 50 MG Tablet PO SCH (08:18)
[2018-03-05] MEDS: Enoxaparin Inj 30 MG/0.3 ML Syringe SQ SCH (08:18)
[2018-03-05] MEDS: predniSONE 20 MG Tablet PO SCH (08:18)
[2018-03-05] MEDS: Lisinopril 5 MG Tablet PO SCH (08:18)
[2018-03-05] MEDS: Senna/Docusate Sodium 8.6/50 MG Tablet PO SCH (08:18)
[2018-03-05] MEDS: hydroCHLOROthiazide 25 MG Tablet PO SCH (08:18)
--- NOTE | 2018-03-05 09:48 | P.PN ---
Subjective Interval history: no complains telemetry- sinus with occasoinal PaC no chest pain or shortness of breath up and ambulating with walker has home 02 Physical Exam Vital signs: Vital Signs 03/04/18 12:00 03/04/18 15:50 03/04/18 16:00 Temperature Pulse Rate 68 64 64 Respiratory Rate 18 18 18 Blood Pressure 147/80 H 127/80 Pulse Oximetry 97 97 03/04/18 19:28 03/04/18 20:00 03/04/18 23:28 Temperature 97.8 F Pulse Rate 62 62 56 L Respiratory Rate 17 14 16 Blood Pressure 159/65 H Pulse Oximetry 99 98 03/05/18 00:00 03/05/18 04:00 Temperature 97.2 F L 97.4 F L Pulse Rate 59 L 68 Respiratory Rate 16 14 Blood Pressure 120/53 L 151/68 H Pulse Oximetry 97 98 Intake & Output 03/04/18 03/05/18 03/05/18 18:59 06:59 18:59 Intake Total 480 / 480 Output Total 300 / 300 Balance 180 / 180 Weight 62 kg Intake: Oral 480 / 480 Output: Urine 300 / 300 Other: # Voids 5 Date of Last Bowel Movement 03/04/18 03/05/18 Narrative: awake and alert no hweea, no rales Heart sounds regular rate and rhythm No lower extremity edema moves all extremities spontaenously Results - Labs CBC & Chem 7: 03/03/18 00:23 03/03/18 00:23 Laboratory Results - last 24 hr 03/05/18 02:48 Stl C.difficile DNA Amp Negative St C. diff Tox Epid 027 Negative Assessment and Plan - Plan 82-year-old black male being admitted for shortness of breath, as well as chest pain a few days ago. Shortness of breath/COPD exacerbation -CTA negative for PE, pulmonology will follow the patient outpatient for paratracheal mass that was incidentally noted, need a PET scan- done as OP - gave him a script to bring to PCP to be ordered as OP -Continue home oxygen -Duo nebs -CXR with no acute infiltrate -Oral steroids Elevated troponin with subacute chest pain History of CAD -Troponins had topped off it 0.08, latest troponin is 0.07 Echocardiogram appears unremarkable with EF 50-55% -Continue aspirin, Plavix, Lipitor, atenolol Hypertension Continue home medications Heparin Sq for DVT prophylaxis DC home today OP ff up with Dr. fong OP ff up with Dr. Medina
--- NOTE | 2018-03-05 10:37 | P.DCO ---
- Physical Therapy Order: Evaluate and treat - Home Health Nursing Order: Medical education, Signs/symptoms of disease process, Oxygen administration education, Nursing assessment with vital signs - Case Management Consult Case Management Consult-Home Health: Yes - Certification I have seen patient Sammy Santos on 03/05/18. My clinical findings support the need for the requested home health care services because: Patient has SOB, Deconditioned with increased weakness, Need for psychosocial assistance I certify that my clinical findings support that this patient is homebound because: Hx COPD - exertion dyspnea/weakness, Need for psychosocial assistance ( respiratory therapy eval and treat)
[2018-03-05 11:09] VITALS: TEMP 98.4
--- NOTE | 2018-03-05 12:30 | P.DS ---
Date of admission: 03/01/18 12:11 Primary care physician: Anastasiia Urban MD Anticipated date of discharge: 03/05/18 Brief History from admission: 82-year-old male with a past medical history significant for COPD on 2 L nasal cannula at home, coronary artery disease, hypertension and history of prostate cancer presents to the emergency department for the evaluation of shortness of breath. The patient reports his symptoms started approximately 1 week ago. He endorses a cough productive of yellow sputum. Denies any fevers or chills. Patient also endorses chest pain that occurred 2-3 days ago that was relieved with nitro. No abdominal pain. No nausea/vomiting/diarrhea. No focal neurologic deficits. Patient update on day of discharge: awake and alert, no wheezes oriented x 3 DS: Summary - Time Spent with Patient Total time spent providing and/or coordinating discharge services: - Quality: VTE Deep Vein Thrombosis/Pulmonary Embolism Present on Admission: No Exam Vital signs: Vital Signs 03/04/18 15:50 03/04/18 16:00 03/04/18 19:28 Temperature Pulse Rate 64 64 62 Respiratory Rate 18 18 17 Blood Pressure 127/80 Pulse Oximetry 97 99 03/04/18 20:00 03/04/18 23:28 03/05/18 00:00 Temperature 97.8 F 97.2 F L Pulse Rate 62 56 L 59 L Respiratory Rate 14 16 16 Blood Pressure 159/65 H 120/53 L Pulse Oximetry 98 97 03/05/18 04:00 03/05/18 08:00 03/05/18 10:09 Temperature 97.4 F L 98.4 F Pulse Rate 68 60 Respiratory Rate 14 18 Blood Pressure 151/68 H 159/92 H Pulse Oximetry 98 100 98 Intake & Output 03/04/18 03/05/18 03/05/18 18:59 06:59 18:59 Intake Total 480 / 480 250 / 250 Output Total 300 / 300 Balance 180 / 180 250 / 250 Weight 62 kg Intake: IV 250 / 250 Oral 480 / 480 Output: Urine 300 / 300 Other: # Voids 5 Date of Last Bowel Movement 03/04/18 03/05/18 03/05/18 Results Labs on day of discharge: Labs from last 24 hours 03/05/18 02:48 Stl C.difficile DNA Amp Negative St C. diff Tox Epid 027 Negative - Impressions ITS Impressions Chest X-Ray 02/26/18 16:58 CONCLUSION: 1. COPD. 2. No acute pulmonary infiltrates are demonstrated. 3. Stable pleural-parenchymal scarring in both upper lung galvan compared to the prior study. Chest CTA 02/28/18 00:00 CONCLUSION: 1. Negative for central pulmonary emboli 2. Moderate emphysematous changes with abnormal soft tissue right paratracheal region suspicious for neoplastic process. 3. PET scan would be of benefit for evaluation. Discharge Plan - Discharge Disposition Patient Disposition: 01 Discharge Home - Discharge Condition Condition: Stable - Discharge Order Discharge Orders: Discharge Order (Routine); Ordered 03/05/18 Ordered By: Rosalind Diaz - Discharge Details Anticipated Discharge Date: 03/05/18 - Physicians Team Primary Care Provider: Anastasiia Urban Attending Provider: Rosalind Diaz Other Providers: [employer] ; Casper Medina MD ; Endy Hawkins MD
--- NOTE | 2018-03-05 13:01 | P.PNCA ---
Subjective Interval history: alert in nad Medications and Allergies Active Medications: Active Medications Acetaminophen (Tylenol) 650 mg PO Q4H PRN PRN Reason: Temp > 100.4 Al Hydroxide/Mg Hydroxide (Milk Of Magnesia Liq) 30 ml PO Q12H PRN PRN Reason: Mild Constipation Albuterol (Duoneb Neb (Prn)) 1 ampul NEB Q4HR NEB PRN PRN Reason: SOB/wheezing Last Admin: 03/02/18 03:17 Dose: 1 ampul Aspirin (Ecotrin) 81 mg PO DAILY [facility] Last Admin: 03/05/18 08:18 Dose: 81 mg Atenolol (Tenormin) 50 mg PO BID [facility] Last Admin: 03/05/18 08:18 Dose: 50 mg Atorvastatin Calcium (Lipitor) 40 mg PO HS [facility] Last Admin: 03/04/18 22:10 Dose: 40 mg Bisacodyl (Dulcolax Supp) 10 mg RECTAL DAILY PRN PRN Reason: SEVERE CONSITIPATION Clopidogrel Bisulfate (Plavix) 75 mg PO DAILY [facility] Last Admin: 03/05/18 08:18 Dose: 75 mg Enalaprilat (Vasotec Inj) 1.25 mg IV.PUSH Q4H PRN PRN Reason: SBP>160, DBP>90 Last Admin: 03/02/18 04:39 Dose: 1.25 mg Enoxaparin Sodium (Lovenox Inj) 30 mg SQ DAILY [facility] Last Admin: 03/05/18 08:18 Dose: 30 mg Hydralazine HCl (Apresoline) 10 mg PO ONCE [facility] Hydrochlorothiazide (Hydrodiuril) 25 mg PO DAILY [facility] Last Admin: 03/05/18 08:18 Dose: 25 mg Lactulose (Lactulose Liq) 30 ml PO DAILY PRN PRN Reason: SEVERE CONSITIPATION Lisinopril (Prinivil) 5 mg PO DAILY [facility] Last Admin: 03/05/18 08:18 Dose: 5 mg Miscellaneous (Pill Splitter) 1 each OTHER UNSCH PRN PRN Reason: PILL SPLITTING Montelukast Sodium (Singulair) 10 mg PO QPM [facility] Last Admin: 03/04/18 18:29 Dose: 10 mg Ondansetron HCl (Zofran Inj) 4 mg IV.PUSH Q6H PRN PRN Reason: NAUSEA OR VOMITING Pantoprazole Sodium (Protonix) 40 mg PO DAILY [facility] Last Admin: 03/05/18 08:18 Dose: 40 mg Pt:Combivent (Respimat) 0 each INH QID [facility] Prednisone (Deltasone) 10 mg PO BID [facility] Senna/Docusate Sodium (Isha-Colace) 1 tab PO BID [facility] Last Admin: 03/05/18 08:18 Dose: Not Given Sennosides (Senokot) 17.2 mg PO Q12H PRN PRN Reason: Moderate Constipation Sodium Chloride (Ns Flush) 2 ml IV.FLUSH PRN PRN PRN Reason: FLUSH AFTER USING IV ACCESS Sodium Chloride (Ns Flush) 2 ml IV.FLUSH BID [facility] Last Admin: 03/05/18 08:18 Dose: 2 ml Tamsulosin HCl (Flomax) 0.4 mg PO DAILY [facility] Last Admin: 03/05/18 08:18 Dose: 0.4 mg Allergies Allergy/AdvReac Type Severity Reaction Status Date / Time No Known Allergies Allergy Verified 02/26/18 22:40 Home Medications Medication Instructions Recorded Confirmed Type albuterol sulfate 2.5 mg INHALATION Q4-6H PRN 02/26/18 02/26/18 History albuterol sulfate [ProAir HFA] 2 puff INHALATION Q4HR 02/26/18 02/26/18 History amoxicillin-pot clavulanate 1 tab PO Q12H 02/26/18 02/26/18 History [Augmentin] aspirin [Aspirin Low Dose] 81 mg PO DAILY 02/26/18 02/26/18 History atenolol 50 mg PO BID 02/26/18 02/26/18 History clopidogrel 75 mg PO DAILY 02/26/18 02/26/18 History gabapentin 300 mg PO BID 02/26/18 02/26/18 History hydrochlorothiazide 25 mg PO DAILY 02/26/18 02/26/18 History ipratropium-albuterol [Combivent 1 puff INHALATION QID 02/26/18 02/26/18 History Respimat] montelukast 10 mg PO QPM 02/26/18 02/26/18 History nebivolol [Bystolic] 5 mg PO DAILY 02/26/18 02/26/18 History nitroglycerin 0.4 mg SUBLINGUAL Q5-15M PRN 02/26/18 02/26/18 History pantoprazole [Protonix] 40 mg PO DAILY 02/26/18 02/26/18 History prednisone 10 mg PO DAILY 02/26/18 02/26/18 History tamsulosin 0.4 mg PO DAILY 02/26/18 02/26/18 History umeclidinium-vilanterol [Anoro 1 inh INHALATION Q24H 02/26/18 02/26/18 History Ellipta] Physical Exam Vital signs: Vital Signs 03/04/18 15:50 03/04/18 16:00 03/04/18 19:28 Temperature Pulse Rate 64 64 62 Respiratory Rate 18 18 17 Blood Pressure 127/80 Pulse Oximetry 97 99 03/04/18 20:00 03/04/18 23:28 03/05/18 00:00 Temperature 97.8 F 97.2 F L Pulse Rate 62 56 L 59 L Respiratory Rate 14 16 16 Blood Pressure 159/65 H 120/53 L Pulse Oximetry 98 97 03/05/18 04:00 03/05/18 08:00 03/05/18 10:09 Temperature 97.4 F L 98.4 F Pulse Rate 68 60 Respiratory Rate 14 18 Blood Pressure 151/68 H 159/92 H Pulse Oximetry 98 100 98 Intake & Output 03/04/18 03/05/18 03/05/18 18:59 06:59 18:59 Intake Total 480 / 480 250 / 250 Output Total 300 / 300 Balance 180 / 180 250 / 250 Weight 62 kg Intake: IV 250 / 250 Oral 480 / 480 Output: Urine 300 / 300 Other: # Voids 5 Date of Last Bowel Movement 03/04/18 03/05/18 03/05/18 - Constitutional no acute distress - Routine HEENT Exam Head: Present: normocephalic - Routine Neck Exam Present: supple - Routine Respiratory Exam Present: CTA bilaterally - Routine Cardiovascular Exam Present: S1, S2 - Routine Abdominal Exam Present: soft - Routine Extremities Exam Comments: no jerome Results 03/03/18 00:23 03/03/18 00:23 Intake and Output 03/04/18 03/05/18 03/05/18 22:59 06:59 14:59 Intake Total 480 / 480 250 / 250 Output Total 300 / 300 Balance 180 / 180 250 / 250 Intake: IV 250 / 250 Oral 480 / 480 Output: Urine 300 / 300 Other: # Voids 5 Date of Last Bowel Movement 03/05/18 03/05/18 Weight 62 kg Assessment and Plan - Assessment (1) NSTEMI (non-ST elevated myocardial infarction) Code(s): I21.4 - Non-ST elevation (NSTEMI) myocardial infarction Status: Acute (2) HTN (hypertension) Code(s): I10 - Essential (primary) hypertension Status: Acute (3) CAD (coronary artery disease) Code(s): I25.10 - Atherosclerotic heart disease of [place] coronary artery without angina pectoris Status: Acute (4) Elevated troponin Code(s): R74.8 - Abnormal levels of other serum enzymes Status: Acute - Plan 1.) NSTEMI - moderate 3 vessel cad, rec continue aspirin, plavix, lipitor, atenolol, lisinopril
[2018-03-05 13:34] VITALS: BP 130/74; RESP 24; O2SAT 99
[2018-03-05 13:39] VITALS: PULSE 72
--- NOTE | 2018-03-05 22:33 | ECG ---
Date Performed: 03/04/2018 Time Performed: 17:56:52 PTAGE: 82 years EKG: Sinus rhythm with PAC(s) with borderline 1st degree A-V block. Left axis deviation LBBB Abnormal ECG PREVIOUS TRACING : 02/27/2018 03.55 Since the previous tracing, no significant change noted DOCTOR: Joselo Hanna Interpretating Date/Time 03/05/2018 22:31:43
[2018-03-06] MEDS ORDERED: predniSONE 20 MG Tablet PO SCH (21:00)
== END 2018-03-05 14:46 | disposition home health service (06) ==
LOC: NEDA 15:54 → NEPD 15:54 → NEPFCDU 23:50 → HCIS 03-03 12:28
PROVIDERS: ADMIT Internal Medicine; ATTEND Internal Medicine